=== PATIENT | male | born 1955 | race Caucasian/White ===

== ENCOUNTER 2020-07-05 10:20 | Outpatient (REF) | payer OTHER, SELFPAY ==
--- NOTE | 2020-07-05 | US_ITS ---
EXAMINATION: US EXTRACRANIAL CAROTID DUPLEX, BILATERAL CLINICAL INFORMATION: Follow-up carotid stenosis COMPARISON: June 15, 2019 TECHNIQUE: Real-time ultrasound and Doppler techniques (integrating B-mode 2-D vascular images, Doppler spectral analysis and color-flow Doppler imaging) were utilized to interrogate the extracranial carotid arteries, the vertebral arteries and proximal subclavian arteries bilaterally. The degree of stenosis is determined by criteria similar to NASCET. FINDINGS: Right Side: 1. There is heterogeneous atherosclerotic plaque seen in the bifurcation/proximal ICA region. 2. The common carotid artery PSV proximally is 131 cm/s and distally 128 cm/s. 3. The proximal internal carotid artery velocities are 128 cm/s systolic and 24 cm/s diastolic. 4. The proximal external carotid artery PSV is 141 cm/s. 5. The vertebral artery shows antegrade flow. 6. The subclavian artery waveforms are normal. Left Side: 1. There is heterogeneous atherosclerotic plaque seen in the bifurcation/proximal ICA region. 2. The common carotid artery PSV proximally is 102 cm/s and distally 79 cm/s. 3. The proximal internal carotid artery velocities are 153 cm/s systolic and 33 cm/s diastolic. 4. The proximal external carotid artery PSV is 170 cm/s. 5. The vertebral artery shows antegrade flow. 6. The subclavian artery waveforms are normal. US/US carotid duplex BI IMPRESSION: 1. RIGHT: Moderate, hemodynamically significant stenosis of the proximal right internal carotid artery corresponding to a 50-79% stenosis by velocity criteria. The degree of stenosis is likely less than this since both distal common carotid artery and proximal internal carotid artery velocity is the same, however by velocity criteria this falls in the moderate range. 2. LEFT: Moderate, hemodynamically significant stenosis of the proximal left internal carotid artery corresponding to a 50-79% stenosis by velocity criteria. 3. There is no significant change in the category severity of disease when compared to the previous study dated as described in impression 1.
== END 2020-07-05 10:21 | disposition home or self-care (01) ==
LOC: HO.US 10:20
PROVIDERS: Visit Provider Surgery Vascular Surgery
DX: I65.23 Occlusion and stenosis of bilateral carotid arteries (principal)
CPT/HCPCS: 93880

== ENCOUNTER → 2020-07-11 09:35 | Outpatient (BNVA) | payer OTHER, SELFPAY | PROVIDERS: PCP Internal Medicine Sports Medicine; Visit Provider Surgery Vascular Surgery | DX: Z76.89 Persons encountering health services in other specified circumstances (principal) ==

== ENCOUNTER → 2021-05-08 11:52 | Outpatient (BNVA) | payer OTHER, SELFPAY | PROVIDERS: PCP Internal Medicine; Visit Provider Urology ==

== ENCOUNTER 2021-07-30 13:38 | Outpatient (REF) | payer OTHER, SELFPAY ==
--- NOTE | ~2021-07-30 | US_ITS ---
EXAMINATION: US EXTRACRANIAL CAROTID DUPLEX, BILATERAL CLINICAL INFORMATION: Carotid artery stenosis follow-up. Hyperlipidemia. COMPARISON: 07/05/2020 TECHNIQUE: Real-time ultrasound and Doppler techniques (integrating B-mode 2-D vascular images, Doppler spectral analysis and color-flow Doppler imaging) were utilized to interrogate the extracranial carotid arteries, the vertebral arteries and proximal subclavian arteries bilaterally. The degree of stenosis is determined by criteria similar to NASCET. FINDINGS: Right Side: 1. There is calcified atherosclerotic plaque seen in the bifurcation/proximal ICA region. 2. The common carotid artery PSV proximally is 116 cm/s and distally 116 cm/s. 3. The proximal internal carotid artery velocities are 151 cm/s systolic and 32 cm/s diastolic. 4. The proximal external carotid artery PSV is 189 cm/s. 5. The vertebral artery shows antegrade flow. 6. The subclavian artery waveforms are normal. Left Side: 1. There is calcified atherosclerotic plaque seen in the bifurcation/proximal ICA region. 2. The common carotid artery PSV proximally is 115 cm/s and distally 115 cm/s. 3. The proximal internal carotid artery velocities are 127 cm/s systolic and 10 cm/s diastolic. 4. The proximal external carotid artery PSV is 246 cm/s. 5. The vertebral artery shows antegrade flow. 6. The subclavian artery waveforms are normal. US/US carotid duplex BI IMPRESSION: 1. RIGHT: Moderate, hemodynamically significant stenosis of the proximal right internal carotid artery corresponding to a 50-79% stenosis by velocity criteria. 2. LEFT: Moderate, hemodynamically significant stenosis of the proximal left internal carotid artery corresponding to a 50-79% stenosis by velocity criteria. 3. There is no change in the category severity of disease when compared to the previous study dated 07/05/2020.
== END 2021-07-30 13:39 | disposition home or self-care (01) ==
LOC: HO.US 13:38
PROVIDERS: PCP Ophthalmology; Visit Provider Surgery Vascular Surgery
DX: I65.23 Occlusion and stenosis of bilateral carotid arteries (principal); E78.5 Hyperlipidemia, unspecified
CPT/HCPCS: 93880

== ENCOUNTER → 2021-08-09 10:32 | Outpatient (BNVA) | payer OTHER, SELFPAY | PROVIDERS: PCP Ophthalmology; Visit Provider Surgery Vascular Surgery ==

== ENCOUNTER → 2022-07-31 13:24 | Outpatient (BNVA) | payer OTHER, SELFPAY | PROVIDERS: PCP Ophthalmology; Visit Provider Urology | DX: Z13.89 Encounter for screening for other disorder (principal) ==

== ENCOUNTER 2022-08-05 09:35 | Outpatient (REF) | payer OTHER, SELFPAY ==
--- NOTE | ~2022-08-05 | US_ITS ---
EXAMINATION: US EXTRACRANIAL CAROTID DUPLEX, BILATERAL CLINICAL INFORMATION: History of right carotid endarterectomy COMPARISON: Carotid duplex on 07/30/2021 TECHNIQUE: Real-time ultrasound and Doppler techniques (integrating B-mode 2-D vascular images, Doppler spectral analysis and color-flow Doppler imaging) were utilized to interrogate the extracranial carotid arteries, the vertebral arteries and proximal subclavian arteries bilaterally. The degree of stenosis is determined by criteria similar to NASCET. FINDINGS: Right Side: 1. There is moderate atherosclerotic plaque seen in the bifurcation/proximal ICA region. 2. The common carotid artery PSV proximally is 201 cm/s and distally 151 cm/s. 3. The proximal internal carotid artery velocities are 187 cm/s systolic and 21 cm/s diastolic. 4. The proximal external carotid artery PSV is 298 cm/s. 5. The vertebral artery shows antegrade flow. 6. The subclavian artery waveforms are normal. Left Side: 1. There is moderate atherosclerotic plaque seen in the bifurcation/proximal ICA region. 2. The common carotid artery PSV proximally is 113 cm/s and distally 118 cm/s. 3. The proximal internal carotid artery velocities are 362 cm/s systolic and 30 cm/s diastolic. 4. The proximal external carotid artery PSV is 442 cm/s. 5. The vertebral artery shows antegrade flow. 6. The subclavian artery waveforms are normal. US/US carotid duplex BI IMPRESSION: 1. RIGHT: Moderate, hemodynamically significant stenosis of the proximal right internal carotid artery corresponding to a 50-79% stenosis by velocity criteria. 2. LEFT: Moderate, hemodynamically significant stenosis of the proximal left internal carotid artery corresponding to a 50-79% stenosis by velocity criteria. 3. Significantly elevated velocities in the bilateral external carotid artery suggesting stenosis. 4. There is no change in the category severity of disease when compared to the previous study dated 07/30/2021.
== END 2022-08-05 09:36 | disposition home or self-care (01) ==
LOC: HO.US 09:35
PROVIDERS: PCP Ophthalmology; Visit Provider Surgery Vascular Surgery
DX: I65.23 Occlusion and stenosis of bilateral carotid arteries (principal)
CPT/HCPCS: 93880

== ENCOUNTER 2022-08-20 10:33 | Outpatient (REF) | payer OTHER, SELFPAY ==
[2022-08-20 12:42] LABS: Blood Urea Nitrogen 13 mg/dL (9-16)
[2022-08-20 13:26] LABS: Estimated Glomerular Filt Rate > 60
== END 2022-08-20 10:34 | disposition home or self-care (01) ==
LOC: HO.LAB 10:33
PROVIDERS: Urology; PCP Ophthalmology; Visit Provider Surgery Vascular Surgery
DX: I65.23 Occlusion and stenosis of bilateral carotid arteries (principal); E29.1 Testicular hypofunction; N40.1 Benign prostatic hyperplasia with lower urinary tract symptoms; N13.8 Other obstructive and reflux uropathy
CPT/HCPCS: 36415; 82565; 84520; 85027

== ENCOUNTER → 2022-08-29 09:02 | Outpatient (BNVA) | payer OTHER, SELFPAY | PROVIDERS: PCP Ophthalmology; Visit Provider Surgery Vascular Surgery | DX: Z13.89 Encounter for screening for other disorder (principal) ==

== ENCOUNTER 2022-09-16 05:59 | Inpatient (IN) | payer OTHER, SELFPAY ==
[2022-09-11 13:18] VITALS: BP 159/72; PULSE 83; RESP 20; O2SAT 98; BMI 23.8
[2022-09-11 15:21] LABS: PLT CLUMP 1; Red Blood Count 4.37 X10*6/uL (4.60-5.80)
[2022-09-11 15:22] LABS: Hematocrit 39.5 % (42.0-52.0); Hemoglobin 13.7 g/dl (14.0-18.0); Mean Corpuscular HGB Conc 34.7 g/dl (31.0-36.0); Mean Corpuscular Hemoglobin 31.4 pg (27.0-33.0); Mean Corpuscular Volume 90.4 fL (80.0-98.0); Red Cell Distribution Width 14.2 % (11.0-16.0)
[2022-09-11 15:27] LABS: Platelet Count 101 X10*3/uL (160-400); White Blood Count 6.9 X10*3/uL (4.8-10.8)
[2022-09-11 15:28] LABS: INTERNATIONAL NORM RATIO 1.1 (0.9-1.1); Prothrombin Time 12.1 SEC (10.0-13.1)
[2022-09-11 15:30] LABS: Partial Thromboplastin Time 35.7 SEC (26.0-36.4)
[2022-09-11 15:43] LABS: Anion Gap 11 (12-20); Blood Urea Nitrogen 15 mg/dL (9-16); Calcium 9.7 mg/dL (8.4-10.2); Carbon Dioxide 29 mmol/L (22-29); Chloride 107 mmol/L (96-108); Estimated Glomerular Filt Rate > 60; Glucose Random 95 mg/dL (60-115); Potassium 4.4 mmol/L (3.3-5.1); Sodium 143 mmol/L (135-145)
[2022-09-16] VITALS (17 sets, daily range): BP systolic 110–153; BP diastolic 35–57; PULSE 56–88; RESP 11–18; TEMP 36.4–37.3; O2SAT 93–99
[2022-09-16 06:43] LABS: Hematocrit 37.5 % (42.0-52.0); INTERNATIONAL NORM RATIO 1.2 (0.9-1.1); Mean Corpuscular HGB Conc 34.7 g/dl (31.0-36.0); Mean Corpuscular Hemoglobin 31.2 pg (27.0-33.0); Mean Corpuscular Volume 89.9 fL (80.0-98.0); Prothrombin Time 13.6 SEC (10.0-13.1); Red Blood Count 4.17 X10*6/uL (4.60-5.80); Red Cell Distribution Width 14.2 % (11.0-16.0); White Blood Count 5.9 X10*3/uL (4.8-10.8)
[2022-09-16 06:46] LABS: Partial Thromboplastin Time 34.2 SEC (26.0-36.4); Platelet Count 79 X10*3/uL (160-400)
[2022-09-16 06:53] LABS: Anion Gap 13 (12-20); Blood Urea Nitrogen 14 mg/dL (9-16); Calcium 9.3 mg/dL (8.4-10.2); Carbon Dioxide 23 mmol/L (22-29); Chloride 110 mmol/L (96-108); Creatinine Clr Calc Pharmacy 85.5; Estimated Glomerular Filt Rate > 60; Glucose Random 104 mg/dL (60-115); Potassium 4.3 mmol/L (3.3-5.1); Sodium 142 mmol/L (135-145)
[2022-09-16 06:54] LABS: COVID-19 Test Negative (Negative); IDNOW Serial# 6674DD1D
--- NOTE | 2022-09-16 07:05 | PHA.MEDREC ---
Pharmacy Consult ? Medication Reconciliation Pharmacy has completed the medication reconciliation. Med rec checked from overnight
[2022-09-16] MEDS: Lactated Ringers 1,000 ML 50 ML IVCONT (07:22)
--- NOTE | 2022-09-16 07:36 | HO.ANESPROP2 ---
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 Cardiology started the patient on metoprolol for better blood pressure control . Chronic thrombocytopenia discussed with the surgeon. PMF Active Problems Active Problems: All Active Problems (Updated 09/11/22 @ 13:15 by Flower Raphael RN) Carotid stenosis, bilateral (Acute) Hypogonadism in male (Acute) Erectile dysfunction due to arterial insufficiency (Acute) Testicular cancer (Acute) Past Medical History Medical History (Updated 09/11/22 @ 13:15 by Flower Raphael RN) Cataract HTN (hypertension) Hyperlipidemia Lymphoma Testicular cancer Thrombocytopenia Functional capacity: independent ambulation Family History Family history of problems with anesthesia: No Surgical History Surgical History (Updated 09/11/22 @ 13:30 by Flower Raphael RN) History of carotid endarterectomy (~09/16/17) Hx of bilateral orchiectomies Hx of cataract extraction Hx of hand surgery History of Problems with Anesthesia: No Social History Social History (Updated 08/29/22 @ 09:11 by GEORGE Boudreaux) Household Members: Family Are you a primary pharmacy customer care specialist to a significant other at home: No Do you presently have visiting nurse or other home services: No Patient Tobacco Use Status: Current everyday Tobacco user Tobacco use type: Cigarette Cigarette Packs Per Day: 1 Cigarettes Per Day: 20 Years Smoked: 46 Patient Interested in Nicotine Replacement: No Use of substances other than those prescribed or required for medical reasons: No Substance Use Frequency: Daily Have you been hit, kicked, punched, or otherwise hurt by someone within the past year? If so, by whom?: No Do you feel safe in your current relationship?: Yes Are you DNR?: No Advance Directives: No ( is primary contact-no HCP on file [facility] [place]) Advance Directives Information Provided: Yes (brochure given) Advance Directives on File: No Recently lost weight without trying: Unsure Eating poorly because of decreased appetite: No Nutrition Risks: No Nutritional Risk Poor oral hygiene: No (full upper & lower denture and 2 implant posts-lower) Meds Allergies Allergy/AdvReac Type Severity Reaction Status Date / Time bee pollen [bee stings] Allergy Intermediate Swelling Verified 09/10/22 10:03 Active Medications: Current Medications Lactated Ringer's (Lr) 1,000 mls @ 50 mls/hr IVCONT .Q20H [facility] Last Admin: 09/16/22 07:22 Dose: 50 mls/hr Home Medications Medication Instructions Recorded Confirmed Last Taken Type amlodipine 10 mg tablet 10 mg PO DAILY 01/22/22 09/11/22 09/16/22 History aspirin 81 mg tablet,delayed 81 mg PO DAILY 08/20/22 09/11/22 Unknown History release folic acid 1 mg tablet 1 mg PO DAILY 08/20/22 09/11/22 Unknown History atorvastatin 40 mg tablet 40 mg PO BEDTIME 09/11/22 09/11/22 Unknown History metoprolol tartrate 25 mg tablet 25 mg PO BID 09/11/22 09/11/22 09/16/22 History Exam Exam Date and Time: September 16, 2022 0736 Height,Weight and Vital Signs: Height 5 ft 11 in Weight 77.564 kg Last Vital Signs Temp 99.2 F 09/16/22 06:32 Pulse 88 09/16/22 06:32 Resp 18 09/16/22 06:32 BP 153/57 H 09/16/22 06:32 Pulse Ox 97 09/16/22 06:32 O2 Del Method 09/16/22 06:32 Pertinent Lab Results Pertinent Lab Results: Laboratory Tests 09/11/22 09/11/22 09/11/22 14:30 14:39 14:39 WBC 6.9 RBC 4.37 L Hgb 13.7 L Hct 39.5 L MCV 90.4 MCH 31.4 MCHC 34.7 RDW 14.2 Plt Count 101 L MPV 10.0 Absolute Nucleated RBC 0.000 Nucleated RBC % (auto) 0.0 PT 12.1 INR 1.1 APTT 35.7 Sodium Potassium Chloride Carbon Dioxide Anion Gap BUN Creatinine Estim Creat Clear Calc Estimated GFR Random Glucose Calcium COVID-19 ([facility]) COVID-19 Clin Com Blood Type A Positive Antibody Screen NEGATIVE 09/11/22 09/16/22 09/16/22 14:39 06:20 06:29 WBC 5.9 RBC 4.17 L Hgb 13.0 L Hct 37.5 L MCV 89.9 MCH 31.2 MCHC 34.7 RDW 14.2 Plt Count 79 L MPV 11.0 Absolute Nucleated RBC 0.000 Nucleated RBC % (auto) 0.0 PT INR APTT Sodium 143 Potassium 4.4 Chloride 107 Carbon Dioxide 29 Anion Gap 11 L BUN 15 Creatinine 0.99 Estim Creat Clear Calc 76.0 Estimated GFR > 60 Random Glucose 95 Calcium 9.7 COVID-19 ([facility]) Negative COVID-19 Clin Com See Note Blood Type Antibody Screen 09/16/22 09/16/22 06:29 06:29 WBC RBC Hgb Hct MCV MCH MCHC RDW Plt Count MPV Absolute Nucleated RBC Nucleated RBC % (auto) PT 13.6 H INR 1.2 H APTT 34.2 Sodium 142 Potassium 4.3 Chloride 110 H Carbon Dioxide 23 Anion Gap 13 BUN 14 Creatinine 0.88 Estim Creat Clear Calc 85.5 Estimated GFR > 60 Random Glucose 104 Calcium 9.3 COVID-19 ([facility]) COVID-19 Clin Com Blood Type Antibody Screen Narrative Narrative: EKG 09/10/2022 by patient's prototype model maker NSR Nonspecific ST abnormality Airway Mallampati Class: III TM Dist: >3cm Neck ROM: Full Loose/Missing/Broken Teeth: Yes Heart: S1,S2 Lungs: diminished breath sounds Assessment and Plan Assessment Anesthesia Assessment: Anesthesia Plan Discussed and Chart Reviewed Final Anesthetic Review Family History of Problems with Anesthesia: No History of Problems with Anesthesia: No NPO: Yes ASA Class: III Final Preanesthetic Review: Meds/Allgs Chart Reviewed, Consent Obtained/Reviewed and Anes Risks/Benef Reviewed Patient Risk: High Procedure Risk: Intermediate Anesthetic Plan Anesthetic Plan: GA and Other (Arterial Line ) Disposition: Inp. Admit - ICU
--- NOTE | 2022-09-16 11:04 | P.OP_ITS ---
Operative Note Operative Note Date of Service: 09/16/22 Narrative: Operative note by [facility] Preoperative diagnosis:1. Left Carotid stenosis Postoperative diagnosis: Same Procedure: left Carotid endarterectomy with patch angioplasty Surgeon:Ray Lacey M.D. Transmitter Supervisor: Dr. Altman Anesthesia: General Specimens: 1 Drains: 1 Estimated blood loss: 250 mL Indications: 66-year-old gentleman who had a prior right carotid endarterectomy presented with high-grade left carotid stenosis which was discovered on surveillance follow-up. this was confirmed on CT angiogram. He now presents for left carotid endarterectomy. The patient has signed the info rmed consent after reviewing risks, complications, benefits, and alternatives previously discussed with the patient. The patient was given the opportunity to ask any additional questions or voice any concerns. All questions were answered to the patient's satisfaction. Procedure in detail: Patient was taken to the operating room and placed in a supine position and prepped and draped in sterile manner with ChloraPrep. Longitudinal incision was made along the anterior border of the left sternocleidomastoid carried down through the subcutaneous fat and fascia. Hemostasis was obtained with electrocautery. The platysma muscle was then divided. The carotid sheath was identified in open. The vagus nerve, Ancef cervicalis, and hypoglossal nerves were identified and avoided. The common in ternal and external carotids were then freed from the surrounding tissue. At this point, Five thousand units of heparin was administered and allowed to circulate for 5 minutes time to take effect. The internal, common, external carotids were clamped in that order. Once this was accomplished, we proceeded with the procedure. The carotid bulb was opened with an 11 blade and extended with Morris scissors through the very tight lesion into normal internal carotid artery. This was then extended down into the common carotid artery. We then placed a Hampton shunt. Then the plaque was sharply excised proximally and an eversion endarterectomy was performed successfully at the external. The plaque tapered nicely on to the internal and no tacking sutures were necessary. Heparinized saline was injected and no evidence of flapping or other debris was noted. The remaining carotid was examined, which showed no debris or flaps present. At this point a XenoSure patch was brought on to the field. This was anastomosed to the artery using a 6 0 Prolene in a running fashion. Once approximately 4/5 of the patch was sewn in the shunt was then removed. Prior to the last stitch the internal carotid was back bled through this. Heparinized saline was instilled into the carotid. The last stitch was tied. Hemostasis was excellent. The internal carotid was gently occluded while while of the external and internal were open in that order. Finally the internal was then opened and flow was restored to the entire system. Hemostasis was achieved with interrupted 7-0 Prolene sutures. The wound was irrigated thoroughly. We then placed a 7 flat Torrey-Hemphill drain. Deep layer was reapproximated using a 2-0 poly Sorb and finally the superficial layer with a 3-0 Polysorb. The skin was c losed in a subcuticular manner. The patient awoke and neurologic status was checked and appeared to be intact. Sponge, needle and instrument counts were correct. The patient tolerated the procedure well. Returned to recovery with stable vitals. This note is constructed using voice recognition software. While every effort has been made to ensure accuracy, radiation oncology therapist errors may have been included. Thank you for allowing me to participate in the care of your patient. Yours sincerely, Ray Lacey MD, FACS, R.P.V.I.
[2022-09-16] MEDS: 0.9 % Sodium Chloride 1,000 ML 80 ML IVCONT (12:28)
--- NOTE | 2022-09-16 14:14 | P.HPCC_ITS ---
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 Review of Systems Constitutional: Constitutional: Denies daytime sleepiness, Denies excessive sweating, Denies fatigue, Denies fever(s), Denies lethargy, Denies malaise, Denies night sweats, Denies snoring and Denies weight loss Eyes: Eyes: Denies blurry vision and Denies itchy eyes ENT: Denies nasal congestion, Denies post nasal drip, Denies sinus pain, Denies sinus pressure and Denies other ( Thrush) Cardiovascular: Cardiovascular: Denies chest pain, Denies pedal edema, Denies dyspnea, Denies orthopnea and Denies paroxysmal nocturnal dyspnea Respiratory: Respiratory: Denies cough, Denies hemoptysis, Denies excessive phlegm production, Denies dyspnea, Denies snoring and Denies wheezing Gastrointestinal: Gastrointestinal: Denies abdominal pain and Denies heartburn Musculoskeletal: Musculoskeletal: Denies myalgias, Denies arthralgias and Denies joint swelling Integumentary/Breasts: Skin/Breast: Denies rash Neurologic: Denies seizure-like activity Endocrine: Endocrine: Denies excessive sweating, Denies fatigue and Denies heat intolerance Hematologic/Lymphatic: Hematologic/Lymphatic: Denies easy bruising Allergic/Immunologic: Allergic/Immunologic: Denies itchy eyes, Denies seasonal rhinorrhea and Denies wheezing PMFSH Past Medical History Medical History (Updated 09/16/22 @ 14:25 by Aden Grajeda MD) Cataract HTN (hypertension) Hyperlipidemia Lymphoma Testicular cancer Thrombocytopenia Functional capacity: independent ambulation Surgical History Surgical History (Updated 09/11/22 @ 13:30 by Flower Raphael RN) History of carotid endarterectomy (~09/16/17) Hx of bilateral orchiectomies Hx of cataract extraction Hx of hand surgery Social History Social History (Updated 08/29/22 @ 09:11 by GEORGE Boudreaux) Household Members: Family Are you a primary wound care center consultant to a significant other at home: No Do you presently have visiting nurse or other home services: No Patient Tobacco Use Status: Current everyday Tobacco user Tobacco use type: Cigarette Cigarette Packs Per Day: 1 Cigarettes Per Day: 20 Years Smoked: 46 Patient Interested in Nicotine Replacement: No Use of substances other than those prescribed or required for medical reasons: No Substance Use Frequency: Daily Have you been hit, kicked, punched, or otherwise hurt by someone within the past year? If so, by whom?: No Do you feel safe in your current relationship?: Yes Are you DNR?: No Advance Directives: No ( is primary contact-no HCP on file [facility] [place]) Advance Directives Information Provided: Yes (brochure given) Advance Directives on File: No Recently lost weight without trying: Unsure Eating poorly because of decreased appetite: No Nutrition Risks: No Nutritional Risk Poor oral hygiene: No (full upper & lower denture and 2 implant posts-lower) Meds Allergies Allergy/AdvReac Type Severity Reaction Status Date / Time bee pollen [bee stings] Allergy Intermediate Swelling Verified 09/10/22 10:03 Active Medications: Current Medications Acetaminophen (Acetaminophen 325 Mg Tablet) 650 mg PO Q6H PRN PRN Reason: Pain, Mild (Pain Scale 1-3) Amlodipine Besylate (Amlodipine Besylate 10 Mg Tablet) 10 mg PO DAILY [facility]; Protocol Atorvastatin Calcium (Atorvastatin Calcium 40 Mg Tablet) 40 mg PO BEDTIME [facility] Fentanyl (Fentanyl Citrate/Pf 100 Mcg/2 Ml Vial) 25 mcg IVPUSH Q5M PRN; Protocol PRN Reason: Pain, Moderate (Pain Scale 4-6 Folic Acid (Folic Acid 1 Mg Tablet) 1 mg PO DAILY [facility] Hydromorphone HCl (Hydromorphone Hcl 0.5 Mg/0.5 Ml Syringe) 0.25 mg IVPUSH Q5M PRN; Protocol PRN Reason: Pain, Severe (Pain Scale 7-10) Sodium Chloride (Ns) 1,000 mls @ 80 mls/hr IVCONT .[id number] [facility] Last Admin: 09/16/22 12:28 Dose: 80 mls/hr Cefazolin Sodium/Dextrose (Ancef) 2 gm in 50 mls @ 100 mls/hr IV POSTOP ONE Stop: 09/16/22 14:29 Metoprolol Tartrate (Metoprolol Tartrate 25 Mg Tablet) 25 mg PO BID [facility]; Protocol Morphine Sulfate (Morphine Sulfate 2 Mg/Ml Cartridge) 2 mg IVPUSH Q4H PRN; Protocol PRN Reason: Pain, Severe (Pain Scale 7-10) Oxycodone HCl (Oxycodone Hcl Immed Release 5 Mg Tablet) 5 mg PO Q4H PRN PRN Reason: Pain, Moderate (Pain Scale 4-6 Sodium Chloride (0.9 % Sodium Chloride Flush 3 Ml Syringe) 3 ml IVFLUSH QSHIFT [facility] Last Admin: 09/16/22 12:31 Dose: Not Given Home Medications Medication Instructions Recorded Confirmed Last Taken Type amlodipine 10 mg tablet 10 mg PO DAILY 01/22/22 09/11/22 09/16/22 History aspirin 81 mg tablet,delayed 81 mg PO DAILY 08/20/22 09/11/22 Unknown History release folic acid 1 mg tablet 1 mg PO DAILY 08/20/22 09/11/22 Unknown History atorvastatin 40 mg tablet 40 mg PO BEDTIME 09/11/22 09/11/22 Unknown History metoprolol tartrate 25 mg tablet 25 mg PO BID 09/11/22 09/11/22 09/16/22 History Physical Exam Vital Signs: Vital Signs: Last Vital Signs Temp 98.2 F 09/16/22 11:07 Pulse 58 09/16/22 14:00 Resp 14 09/16/22 14:00 BP 124/44 L 09/16/22 14:00 Pulse Ox 98 09/16/22 14:00 O2 Del Method 09/16/22 14:00 O2 Flow Rate 3 09/16/22 11:37 BMI result Body Mass Index 23.8 Const: General: no acute distress and alert Nutritional Appearance: not obese Orientation/consciousness: Other orientation findings ( oriented) HEENT: Head: Yes atraumatic Eyes: General: appearance normal, both eyes and all related structures Sclerae: sclerae normal EOM: EOMs intact bilaterally Neck: Neck: Yes supple and Yes other ( left surgical site with dressing and no hematoma) Lymphatic: no lymphadenopathy noted Resp: Effort & Inspection: normal respiratory effort and no use of accessory muscles Auscultation: clear to auscultation bilaterally Cardio: Rate: regular rate Rhythm: regular rhythm Heart sounds: no gallops, no murmurs and no rubs GI: Palpation (GI): Soft to palpation and Other GI palpation findings present ( nontender) Skin: General skin exam: other ( warm) Rashes: no rashes Extrem: General: No clubbing, No cyanosis and No edema Results Labs 09/16/22 06:29 09/16/22 06:29 Labs: Laboratory Results - last 24 hr 09/16/22 09/16/22 09/16/22 06:20 06:29 06:29 MCV 89.9 MCH 31.2 MCHC 34.7 RDW 14.2 Plt Count 79 L MPV 11.0 Absolute Nucleated RBC 0.000 Nucleated RBC % (auto) 0.0 PT 13.6 H INR 1.2 H APTT 34.2 Anion Gap Estim Creat Clear Calc Estimated GFR Random Glucose Calcium COVID-19 ([facility]) Negative COVID-19 Clin Com See Note 09/16/22 06:29 MCV MCH MCHC RDW Plt Count MPV Absolute Nucleated RBC Nucleated RBC % (auto) PT INR APTT Anion Gap 13 Estim Creat Clear Calc 85.5 Estimated GFR > 60 Random Glucose 104 Calcium 9.3 COVID-19 ([facility]) COVID-19 Clin Com Assessment and Plan (1) Carotid stenosis, bilateral: Status: Acute (2) HTN (hypertension): Status: Acute Plan Assessment: 66-year-old gentleman postoperative day 0 after an elective left carotid endarterectomy being monitored in the intensive care unit. Plan: Neuro: No acute issues. Cardiac: Status post elective left carotid endarterectomy on 09/16/2022. Vascular surgery service care appreciated. Maintain systolic blood pressure under 160. Pulmonary: No acute issues. Renal: No acute issues. Endo: No acute issues. GI: No acute issues. ID: No acute issues Heme/Onc: No acute issues. Psych: No acute issues. Miscellaneous: No acute issues. Prophylaxis: Per vascular surgery Diet: regular Time Spent With Patient Time: Total time managing care of this patient today ____ minutes.
[2022-09-16] MEDS: ceFAZolin Sodium/Dextrose,Iso 2 GM/50 ML PIGGYBACK IV (14:41)
[2022-09-16] MEDS: Atorvastatin Calcium 40 MG TABLET PO (20:41)
[2022-09-16] MEDS: Metoprolol Tartrate 25 MG TABLET PO (20:41)
[2022-09-17] VITALS (18 sets, daily range): BP systolic 124–151; BP diastolic 37–67; PULSE 67–102; RESP 10–20; TEMP 36.6–37.9; O2SAT 89–95; BMI 23.6
[2022-09-17] MEDS: 0.9 % Sodium Chloride 1,000 ML 80 ML IVCONT (00:41)
[2022-09-17] MEDS: 0.9 % Sodium Chloride Flush 3 ML SYRINGE IVFLUSH ×3 (00:42→23:55)
[2022-09-17 05:33] LABS: PLT CLUMP 1; SCAN SMEAR FLAG 1
[2022-09-17 05:34] LABS: Basophils Percent Auto 0.1 % (0-2); Eosinophils Percent Auto 0.2 % (0-4); Hematocrit 31.4 % (42.0-52.0); Hemoglobin 11.1 g/dl (14.0-18.0); Imm Gran Abs Auto 0.05 X10*3/uL (0.00-0.03); Imm Gran Pct Auto 0.6 % (0.0-0.4); Lymphocytes Absolute Auto 1.2 X10*3/uL (1.2-4.9); Lymphocytes Percent Auto 14.1 % (20-40); MANUAL DIFF FLAG SCAN; Mean Corpuscular HGB Conc 35.4 g/dl (31.0-36.0); Mean Corpuscular Hemoglobin 31.2 pg (27.0-33.0); Mean Corpuscular Volume 88.2 fL (80.0-98.0); Mean Platelet Volume 11.5 fL (9.4-12.4); Monocytes Absolute Auto 0.6 X10*3/uL (0.1-1.2); Monocytes Percent Auto 6.6 % (2-11); Neutrophils Absolute Auto 6.8 x10*3/uL (2.0-8.3); Neutrophils Percent Auto 78.4 % (45-73); Red Blood Count 3.56 X10*6/uL (4.60-5.80)
[2022-09-17 05:37] LABS: Platelet Count 72 X10*3/uL (160-400); White Blood Count 8.6 X10*3/uL (4.8-10.8)
[2022-09-17 05:40] LABS: SLIDE REVIEW VERIFIED
[2022-09-17 05:49] LABS: Albumin Level 3.2 g/dL (3.5-5.0); Anion Gap 11 (12-20); Blood Urea Nitrogen 16 mg/dL (9-16); Calcium 8.5 mg/dL (8.4-10.2); Carbon Dioxide 23 mmol/L (22-29); Chloride 111 mmol/L (96-108); Creatinine Clr Calc Pharmacy 91.8; Estimated Glomerular Filt Rate > 60; Glucose Random 96 mg/dL (60-115); Magnesium 1.6 mg/dL (1.6-2.6); Phosphorus 3.3 mg/dL (2.7-4.5); Potassium 4.2 mmol/L (3.3-5.1); Sodium 141 mmol/L (135-145)
[2022-09-17] MEDS: amLODIPine Besylate 10 MG TABLET PO (07:51)
[2022-09-17] MEDS: Metoprolol Tartrate 25 MG TABLET PO ×2 (07:51→20:25)
[2022-09-17] MEDS: Folic Acid 1 MG TABLET PO (07:51)
[2022-09-17] MEDS: Furosemide 20 MG/2 ML VIAL IVPUSH ×2 (09:38→12:48)
--- NOTE | 2022-09-17 09:44 | MHC.CM.PN ---
CM MET WITH PT AT BEDSIDE. LIVES WITH IN A DUPLEX. INDEPENDENT AT BASELINE. NO DME OR SERVICES. +HCP (COPY AT HOME) + COVID VAX X2 PCP DR. HAN DP: HOME, NO SERVICES (PATIENT DOES NOT FEEL HE WILL NEED A VNA) OR DAUGHTER WILL TRANSPORT HOME.
--- NOTE | 2022-09-17 12:29 | PM.CCPN ---
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 No events overnight. Critical Care Time (minutes): 0 Physical Exam Vital Signs: Vital Signs: Last Vital Signs Temp 98.9 F 09/17/22 08:00 Pulse 73 09/17/22 11:00 Resp 20 09/17/22 11:00 BP 125/58 L 09/17/22 11:00 Pulse Ox 92 09/17/22 11:12 O2 Del Method 09/17/22 11:12 O2 Flow Rate 4 09/17/22 11:00 Oxygen Flow Rate 4 09/17/22 11:12 BMI result Body Mass Index 23.6 Const: General: no acute distress, alert and awake Eyes: Sclerae: sclerae normal EOM: EOMs intact bilaterally Neck: Neck: Yes no lymphadenopathy, Yes trachea midline, Yes supple and Yes other ( Left carotid endarterectomy site with surgical dressing and no hematoma.) Resp: Effort & Inspection: normal respiratory effort and no respiratory distress Auscultation: clear to auscultation bilaterally Cardio: Rate: regular rate Rhythm: regular rhythm Heart sounds: no gallops, no murmurs and no rubs GI: Palpation (GI): Soft to palpation and Other GI palpation findings present ( Nontender) Auscultation: normal bowel sounds Extrem: General: Yes no pedal edema, No clubbing and No cyanosis Objective Data Labs 09/17/22 05:09 09/17/22 05:09 Labs: Laboratory Results - last 24 hr 09/17/22 09/17/22 05:09 05:09 WBC 8.6 RBC 3.56 L Hgb 11.1 L Hct 31.4 L MCV 88.2 MCH 31.2 MCHC 35.4 RDW 14.0 Plt Count 72 L MPV 11.5 Immature Gran % (Auto) 0.6 H Neut % (Auto) 78.4 H Lymph % (Auto) 14.[address] [place] % (Auto) 6.6 Eos % (Auto) 0.2 Baso % (Auto) 0.1 Lymph # (Auto) 1.2 [place] # (Auto) 0.6 Eos # (Auto) 0.0 Baso # (Auto) 0.0 Abs Immat Gran (auto) 0.05 H Absolute Neuts (auto) 6.8 Absolute Nucleated RBC 0.000 Nucleated RBC % (auto) 0.0 Smear Tech's Comments VERIFIED Sodium 141 Potassium 4.2 Chloride 111 H Carbon Dioxide 23 Anion Gap 11 L BUN 16 Creatinine 0.82 Estim Creat Clear Calc 91.8 Estimated GFR > 60 Random Glucose 96 Calcium 8.5 D Phosphorus 3.3 Magnesium 1.6 Albumin 3.2 L Progress Note: A&P Assessment and plan (1) Carotid stenosis, bilateral: Status: Acute (2) HTN (hypertension): Status: Acute Plan Assessment: 66-year-old gentleman postoperative day 0 after an elective left carotid endarterectomy being monitored in the intensive care unit. Plan: Neuro: No acute issues. Cardiac: Status post elective left carotid endarterectomy on 09/16/2022. Vascular surgery service care appreciated. Maintain systolic blood pressure under 160. Pulmonary: Acute hypoxia requiring supplemental oxygen, likely secondary to pulmonary edema with IV fluids, improving with diuresis. Continue to titrate off supplemental oxygen as tolerated. Renal: No acute issues. Endo: No acute issues. GI: No acute issues. ID: No acute issues Heme/Onc: No acute issues. Psych: No acute issues. Miscellaneous: No acute issues. Prophylaxis: Per vascular surgery Diet: regular Quality Stroke Does the patient have a stroke diagnosis?: No VTE Prior VTE?: No VTE Risk Level:: Medical - moderate - high VTE Device Contraindication: N/A - Device Ordered VTE Drug Contraindication: Treatment Not Tolerated
--- NOTE | 2022-09-17 13:03 | HO.VASCPN ---
Subjective Subjective Date of Service: 09/17/22 Patient reports: no new complaints and feels better Interval history: Patient postop day 1 status post carotid endarterectomy. No events overnight. Appears to be doing relatively well. Tolerating some p.o. and regular diet. He did have events of desaturation overnight. He is requiring oxygen. Other than that doing extremely well postop day 1. Physical Exam Vital Signs: Vital Signs: Last Vital Signs Temp 98.9 F 09/17/22 08:00 Pulse 81 09/17/22 12:00 Resp 10 L 09/17/22 12:00 BP 144/66 H 09/17/22 12:00 Pulse Ox 89 L 09/17/22 12:00 O2 Del Method 09/17/22 12:00 O2 Flow Rate 4 09/17/22 12:00 Oxygen Flow Rate 4 09/17/22 11:12 BMI result Body Mass Index 23.6 Const: General: cooperative, healthy appearing and comfortable Orientation/consciousness: oriented to person, oriented to place and oriented to time HEENT: Head: Yes normal to inspection Neck: Neck: Yes normal visual inspection Carotids: no bruits Chest: Chest palpation & inspection: normal inspection of the chest Resp: Effort & Inspection: normal respiratory effort and able to speak in complete sentences Auscultation: clear to auscultation bilaterally, no crackles, no rales, no rhonchi and no wheezes Cardio: Rate: regular rate Rhythm: regular rhythm Heart sounds: S1 normal heart sound present and S2 normal heart sound present Bruits: no carotid bruits Peripheral pulses: Peripheral pulses 2+ throughout GI: Inspection: Yes normal to inspection Skin: Other: Neck incision healing well ANIKA drain removed Wounds: no wounds Hair: normal Neuro: General: oriented to person, oriented to place and oriented to time Cranial nerves: Yes CN's II-XII intact bilaterally and Yes Normal hearing present Cognition (Neuro): normal cognition Motor exam (neuro): 5/5 motor strength present throughout Extrem: Other: venous exam: No significant superficial varicosities or spider telangiectasias, minimal edema General: No clubbing, No cyanosis and No edema Psych: Appearance: grossly normal Mental Status: mental status grossly normal Speech and movement: Normal speech and movement present Progress Note: A&P Assessment and plan (1) Carotid stenosis, bilateral: Status: Acute Assessment and Plan: In short patient is doing extremely well status post carotid endarterectomy. CBC is stable with a hemoglobin of 11.1 and a platelet count of 72. The only issue is his desaturation. I do suspect that that is where he usually lives. He was given round of Lasix. Appears to be doing much better with that. Will keep additional day for observation. Regular diet and encouraged ambulation. Would anticipate discharge as early as tomorrow. Time Spent With Patient Time: Total time managing care of this patient today ____ minutes. Procedures Date of Service Date of Service: 09/17/22 Quality Stroke Does the patient have a stroke diagnosis?: No VTE Prior VTE?: No VTE Risk Level:: Medical - moderate - high VTE Device Contraindication: N/A - Device Ordered VTE Drug Contraindication: Treatment Not Tolerated
--- NOTE | 2022-09-17 13:26 | MHC.SHP ---
Pre-Procedural Eval Section A Date of Service: 09/16/22 The patient is an INPATIENT: No Changes since office visit: Yes Patient answered all questions The History & Physical has been completed within 30 days and I have reviewed it.: Yes Section B Chief Complaint: Postop Allergies: Allergies Allergy/AdvReac Type Severity Reaction Status Date / Time bee pollen [bee stings] Allergy Intermediate Swelling Verified 09/10/22 10:03 Plan I have reviewed the history and physical and performed a pertinent physical examination on my patient. No changes have occurred unless specified. Time Spent With Patient Time: Total time managing care of this patient today ____ minutes.
--- NOTE | 2022-09-17 13:27 | HO.POSTANES ---
Post Anesthesia Evaluation Post Anesthesia Evaluation Vital Signs: Vital Signs Temp Pulse Resp BP Pulse Ox O2 Del Method O2 Flow Rate 09/17/22 08:00 98.9 F 75 20 147/50 H 92 Nasal Cannula 3 09/17/22 11:12 92 Nasal Cannula 09/17/22 12:00 81 10 L 144/66 H 89 L Nasal Cannula 4 09/17/22 11:00 73 20 125/58 L 92 Nasal Cannula 4 09/17/22 10:00 69 15 130/65 94 Nasal Cannula 4 09/17/22 09:00 67 17 139/43 L 90 L Nasal Cannula 4 09/17/22 07:00 69 17 132/39 L 92 Nasal Cannula 2 09/17/22 06:00 69 18 124/37 L 93 Nasal Cannula 2 09/17/22 05:00 95 15 140/58 H 90 L Nasal Cannula 2 09/17/22 04:00 97.9 F 88 16 140/48 H 93 Nasal Cannula 2 09/17/22 02:59 86 15 135/44 L 93 Nasal Cannula 2 09/17/22 02:00 82 15 141/58 H 94 Nasal Cannula 2 Anesthesia: General Endotracheal-GETA Mental Status: Awake Pain Control: Satisfactory Nausea/Vomiting: None Hydration: Adequate Anesthesia-Related Issues: No Anes. Related Issues
[2022-09-17] MEDS: guaiFEN/Codeine SF 200/20/10ML 10 ML LIQUID PO (14:47)
[2022-09-17] MEDS: Acetaminophen 325 MG TABLET 650 MG PO (14:47)
--- NOTE | 2022-09-17 18:06 | PC.NURSE ---
Pt's ANIKA drain removed by MD, tolerated well by pt, dressing to site CDI. Pt has a wet loose cough but nonproductive, LS clear but dim. Pt was initially on 2L n/c, desatting in the high 80s, requiring 4L on n/c, desats with exertion, MD aware and plan to keep another night. Pt received 20mg IV Lasix x2, good UO. PRN cough suppressant given. Pt's dykes dc'd, voiding appropriately in the urinal. Pt ambulated in the hallway with portable O2, tolerated fairly. Pt downgraded to MS, awaiting bed placement. Pt otherwise in no acute distress. Safety maintained throughout. Will continue to monitor.
[2022-09-17] MEDS: Atorvastatin Calcium 40 MG TABLET PO (20:25)
[2022-09-17] MEDS: Melatonin 3 MG TABLET 6 MG PO (21:47)
[2022-09-18 00:20] VITALS: BP 135/66; PULSE 95; RESP 18; O2SAT 92
[2022-09-18 03:54] VITALS: BP 131/63; PULSE 66; RESP 16; TEMP 37.3; O2SAT 92
[2022-09-18 08:00] VITALS: BP 159/61; PULSE 94; RESP 23; TEMP 37; O2SAT 91
[2022-09-18] MEDS: 0.9 % Sodium Chloride Flush 3 ML SYRINGE IVFLUSH (08:16)
[2022-09-18 08:26] LABS: MANUAL DIFF FLAG NO
[2022-09-18 08:36] LABS: Albumin Level 3.5 g/dL (3.5-5.0)
[2022-09-18 08:51] LABS: Basophils Percent Auto 0.3 % (0-2); Eosinophils Absolute Auto 0.1 X10*3/uL (0.0-0.4); Eosinophils Percent Auto 1.7 % (0-4); Hematocrit 32.8 % (42.0-52.0); Hemoglobin 11.5 g/dl (14.0-18.0); Imm Gran Abs Auto 0.04 X10*3/uL (0.00-0.03); Imm Gran Pct Auto 0.6 % (0.0-0.4); Lymphocytes Absolute Auto 1.4 X10*3/uL (1.2-4.9); Lymphocytes Percent Auto 20.2 % (20-40); Mean Corpuscular HGB Conc 35.1 g/dl (31.0-36.0); Mean Corpuscular Hemoglobin 31.3 pg (27.0-33.0); Mean Corpuscular Volume 89.4 fL (80.0-98.0); Mean Platelet Volume 11.2 fL (9.4-12.4); Monocytes Absolute Auto 0.6 X10*3/uL (0.1-1.2); Monocytes Percent Auto 8.7 % (2-11); Neutrophils Absolute Auto 4.8 x10*3/uL (2.0-8.3); Neutrophils Percent Auto 68.5 % (45-73); Red Blood Count 3.67 X10*6/uL (4.60-5.80); Red Cell Distribution Width 14.5 % (11.0-16.0); White Blood Count 6.9 X10*3/uL (4.8-10.8)
[2022-09-18 08:53] LABS: Platelet Count 71 X10*3/uL (160-400)
[2022-09-18] MEDS: Metoprolol Tartrate 25 MG TABLET PO (09:01)
[2022-09-18] MEDS: amLODIPine Besylate 10 MG TABLET PO (09:01)
[2022-09-18] MEDS: Folic Acid 1 MG TABLET PO (09:01)
[2022-09-18 10:09] VITALS: O2SAT 90
--- NOTE | 2022-09-18 10:09 | P.DS_ITS ---
DS: Providers Provider Date of Service: 09/18/22 Date of admission: 09/16/22 05:59 Primary care physician: Batool Latif MD Consults: 09/18/22 07:52 Consult to Hospitalist Routine Consulting Provider: Hospitalist Reason For Exam: Medical comanagement DS: Diagnosis Discharge Diagnosis (1) Carotid stenosis, bilateral: Status: Acute DS: Summary Hospital Course Hospital Course: Underwent left carotid endarterectomy on 09/16/2022. Procedure went without incident. Postoperatively he did have some underlying COPD and shortness of breath. He was diuresed with Lasix. Appear to be doing much better postop day 2. He was seen and examined with the hospitalist team. He was subsequently stable for discharge. Condition upon discharge stable. He was neurologically intact. Time Spent with Patient Time attestation: Total time managing care of this patient today ____ minutes. Discharge coordination time: Greater than 30 minutes Quality: Safe Use of Opioids Does Pt have an Active Cancer Diagnosis on the Problem List?: No Quality: Stroke Does the patient have a stroke diagnosis?: No Physical Exam Vital Signs: Vital Signs: Last Vital Signs Temp 98.6 F 09/18/22 08:00 Pulse 94 09/18/22 08:00 Resp 23 H 09/18/22 08:00 BP 159/61 H 09/18/22 08:00 Pulse Ox 91 L 09/18/22 08:00 O2 Del Method 09/18/22 08:00 O2 Flow Rate 3 09/18/22 08:00 Oxygen Flow Rate 4 09/17/22 11:12 BMI result Body Mass Index 23.6 Const: General: cooperative, healthy appearing and no acute distress Orientation/consciousness: oriented to person, oriented to place and oriented to time HEENT: Head: Yes normal to inspection Neck: Carotids: no bruits Chest: Chest palpation & inspection: normal inspection of the chest Resp: Effort & Inspection: normal respiratory effort and able to speak in complete sentences Auscultation: clear to auscultation bilaterally Cardio: Rate: regular rate Heart sounds: S1 normal heart sound present and S2 normal heart sound present GI: Inspection: Yes normal to inspection Skin: Other: Left neck well-healed General skin exam: no rashes or lesions noted Wounds: no wounds Neuro: General: oriented to person, oriented to place, oriented to time and CN's II-XI intact bilaterally Extrem: General: Yes normal to inspection, Yes full ROM and Yes no clubbing, cyanosis or edema Psych: Appearance: grossly normal and well kempt Speech and movement: Normal speech and movement present Affect: normal affect DS: Data Data Completed and Pending Completed studies during hospitalization [Text1]: Pending at discharge 09/16/22 09:25 Surgical [PTH] Routine Labs on day of discharge: Laboratory Results - last 24 hr 09/18/22 09/18/22 08:20 08:20 WBC 6.9 RBC 3.67 L Hgb 11.5 L Hct 32.8 L MCV 89.4 MCH 31.3 MCHC 35.1 RDW 14.5 Plt Count 71 L MPV 11.2 Immature Gran % (Auto) 0.6 H Neut % (Auto) 68.5 Lymph % (Auto) 20.2 [place] % (Auto) 8.7 Eos % (Auto) 1.7 Baso % (Auto) 0.3 Lymph # (Auto) 1.4 [place] # (Auto) 0.6 Eos # (Auto) 0.1 Baso # (Auto) 0.0 Abs Immat Gran (auto) 0.04 H Absolute Neuts (auto) 4.8 Absolute Nucleated RBC 0.000 Nucleated RBC % (auto) 0.0 Albumin 3.5 Discharge Plan Discharge Anticipated Discharge Date/Time: 09/18/22 10:05 Patient Disposition: Home, Self-Care Discharge Diagnosis: Status post carotid endarterectomy Referrals: Batool Latif MD [Primary Care Provider] - 1 Week Discharge Medications: Continued testosterone 20.25 mg/1.25 gram (1.62 %) gel in metered-dose pump 3 pump topical DAILY 30 Days Qty: 150 5RF Rx Instructions: apply 3 pumps total between EACH upper arm and shoulder atorvastatin 40 mg tablet 40 mg PO BEDTIME metoprolol tartrate 25 mg Tablet 25 mg PO BID amlodipine 10 mg tablet 10 mg PO DAILY aspirin 81 mg tablet,delayed release (DR/EC) 81 mg PO DAILY folic acid 1 mg tablet 1 mg PO DAILY Discharge Orders: Discharge Order (Routine); Ordered 09/18/22 Ordered By: Ray Lacey Diet: Advance to usual diet Activity on Discharge: As tolerated Stand Alone Forms: Patient Portal Discharge page Activity Restrictions/Additional Instructions: You may shower tomorrow Take it easy today and you may ambulate around the house. You may climb a flight of stairs as tolerated No driving for [address] Lacey in follow-up in approximately 2 weeks time. You should already have an appointment if not please call my office at [phone] Please s use Tylenol as needed for pain If you notice excessive bleeding from the groin please immediately call my office or return to the emergency room. Care Plan Goals: Surveil carotid stenosis Health Concerns: Carotid stenosis Plan of Treatment: Surveillance follow-up of carotid stenosis Assessment: Status post carotid endarterectomy
--- NOTE | 2022-09-18 10:28 | PC.NURSE ---
O2 sat down to 84% off oxygen and with ambulation. Patient placed on 2L NC - Fio2 up to 94% - Dr Wylie and Dr Lacey aware. Dr Lacey at bedside and removed oxygen - Fio2 down to 88% while sitting. Okay per Dr Lacey to discharge patient on RA with current O2 sat. Patient has no complaints at this time, all other vitals stable, ambulating without complaints.
--- NOTE | 2022-09-18 10:48 | HO.PM.IMPN ---
Subjective Subjective Date of Service: 09/18/22 Interval History: being followed for hypoxia and hypertension, patient offers no complaints of shortness of breath, no cough, no fevers, no chills, is a former smoker, not on home oxygen, does not use home inhalers, ambulates long distances at home with no history of shortness of breath. Review of Systems FACILITY SPECIALIST no headache no dizziness CVS no chest pain, no palpitation GI no nausea, no vomiting, no abdominal pain Review of Systems: Yes all other systems are reviewed and are negative Physical Exam Vital Signs: Vital Signs: Last Vital Signs Temp 98.6 F 09/18/22 08:00 Pulse 94 09/18/22 08:00 Resp 23 H 09/18/22 08:00 BP 159/61 H 09/18/22 08:00 Pulse Ox 90 L 09/18/22 10:09 O2 Del Method 09/18/22 08:00 O2 Flow Rate 3 09/18/22 08:00 Oxygen Flow Rate 0 09/18/22 10:09 BMI result Body Mass Index 23.6 Const: Other: General resting comfortably in no acute distress. Neck left neck dressing in place no drainage, no JVD. CVS regular rate rhythm, Respiratory lungs fine crackles at bases, no respiratory distress, no wheeze. Gastrointestinal abdomen soft, nontender, bowel sounds audible. Extremities no edema. left leg > right Neuro nonfocal Skin no rash Objective Data Active Medications Acetaminophen (Acetaminophen 325 Mg Tablet) 650 mg PO Q6H PRN PRN Reason: Pain, Mild (Pain Scale 1-3) Last Admin: 09/17/22 14:47 Dose: 650 mg Documented By: VAISHALI Amlodipine Besylate (Amlodipine Besylate 10 Mg Tablet) 10 mg PO DAILY [facility]; Protocol Last Admin: 09/18/22 09:01 Dose: 10 mg Documented By: BHARTI Atorvastatin Calcium (Atorvastatin Calcium 40 Mg Tablet) 40 mg PO BEDTIME [facility] Last Admin: 09/17/22 20:25 Dose: 40 mg Documented By: KATHERINE Fentanyl (Fentanyl Citrate/Pf 100 Mcg/2 Ml Vial) 25 mcg IVPUSH Q5M PRN; Protocol PRN Reason: Pain, Moderate (Pain Scale 4-6 Folic Acid (Folic Acid 1 Mg Tablet) 1 mg PO DAILY [facility] Last Admin: 09/18/22 09:01 Dose: 1 mg Documented By: BHARTI Guaifenesin/Codeine Phosphate (Guaifen/Codeine Sf 200/20/10ml 10 Ml Liquid) 10 ml PO Q6H PRN PRN Reason: Cough Last Admin: 09/17/22 14:47 Dose: 10 ml Documented By: VAISHALI Hydromorphone HCl (Hydromorphone Hcl 0.5 Mg/0.5 Ml Syringe) 0.25 mg IVPUSH Q5M PRN; Protocol PRN Reason: Pain, Severe (Pain Scale 7-10) Metoprolol Tartrate (Metoprolol Tartrate 25 Mg Tablet) 25 mg PO BID [facility]; Protocol Last Admin: 09/18/22 09:01 Dose: 25 mg Documented By: BHARTI Morphine Sulfate (Morphine Sulfate 2 Mg/Ml Cartridge) 2 mg IVPUSH Q4H PRN; Protocol PRN Reason: Pain, Severe (Pain Scale 7-10) Oxycodone HCl (Oxycodone Hcl Immed Release 5 Mg Tablet) 5 mg PO Q4H PRN PRN Reason: Pain, Moderate (Pain Scale 4-6 Sodium Chloride (0.9 % Sodium Chloride Flush 3 Ml Syringe) 3 ml IVFLUSH [facility] Last Admin: 09/18/22 08:16 Dose: 3 ml Documented By: RICHARD Labs 09/18/22 08:20 09/17/22 05:09 Labs: Laboratory Results - last 24 hr 09/18/22 09/18/22 08:20 08:20 MCV 89.4 MCH 31.3 MCHC 35.1 RDW 14.5 Plt Count 71 L MPV 11.2 Immature Gran % (Auto) 0.6 H Neut % (Auto) 68.5 Lymph % (Auto) 20.2 [place] % (Auto) 8.7 Eos % (Auto) 1.7 Baso % (Auto) 0.3 Lymph # (Auto) 1.4 [place] # (Auto) 0.6 Eos # (Auto) 0.1 Baso # (Auto) 0.0 Abs Immat Gran (auto) 0.04 H Absolute Neuts (auto) 4.8 Absolute Nucleated RBC 0.000 Nucleated RBC % (auto) 0.0 Albumin 3.5 Assessment and Plan (1) HTN (hypertension): Status: Acute (2) Hypoxia: Status: Acute Plan 66-year-old gentleman with pmhx of bilateral carotid stenosis status post right carotid endarterectomy in 2018, hypertension, hyperlipidemia, 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 hypertension stable blood pressure continue metoprolol and Norvasc acute hypoxia initially felt to be fluid related received IV Lasix almost 2 L negative, at present do not appear to be in heart failure with no JVD, no leg edema, mild persistent hypoxia likely due to undiagnosed COPD with history of heavy smoking, recommend incentive spirometry and close outpatient follow-up with PCP and pulmonology. hyperlipidemia continue statins status post left carotid endarterectomy plan of care as per vascular surgery disposition as per vascular surgery Time Spent With Patient Time: Total time managing care of this patient today ____ minutes. Quality Stroke Does the patient have a stroke diagnosis?: No VTE Prior VTE?: No VTE Risk Level:: Medical - moderate - high VTE Device Contraindication: N/A - Device Ordered VTE Drug Contraindication: Treatment Not Tolerated
--- NOTE | 2022-09-18 16:19 | MHC.CM.PN ---
DP: PT MEDICALLY CLEARED FOR DC HOME, NO SERVICES. WILL TRANSPORT
== END 2022-09-18 11:00 | disposition home or self-care (01) | DRG 39 ==
LOC: HO.SSSA 05:59 → HO.ICU 11:43
PROVIDERS: Anesthesiology; Internal Medicine Pulmonary Disease; Admitting Provider Surgery Vascular Surgery; PCP Ophthalmology; Visit Provider Surgery Vascular Surgery
PROC: 03CN0ZZ Extirpation of Matter from Left External Carotid Artery, Open Approach (ICD-10-PCS; CPT 35301; principal; 2022-09-16 07:30)
DX: I65.22 Occlusion and stenosis of left carotid artery (principal); I10 Essential (primary) hypertension; R09.02 Hypoxemia; E78.5 Hyperlipidemia, unspecified; F17.210 Nicotine dependence, cigarettes, uncomplicated; J44.9 Chronic obstructive pulmonary disease, unspecified; Z20.822 Contact with and (suspected) exposure to COVID-19; Z71.6 Tobacco abuse counseling; Z79.82 Long term (current) use of aspirin; Z79.899 Other long term (current) drug therapy
CPT/HCPCS: 36415; 80048; 82040; 83735; 84100; 85025; 85027; 85610; 85730; 86850; 86900; 86901; 87635; 88304; 88305; 88311; C1758; C1768; J0690; J1100; J1170; J1643; J1940; J2250; J2370; J2405; J2795; J3010

== ENCOUNTER → 2022-09-26 08:58 | Outpatient (BNVA) | payer OTHER, SELFPAY | PROVIDERS: PCP Student in an Organized Health Care Education/Training Program; Visit Provider Surgery Vascular Surgery | DX: Z13.89 Encounter for screening for other disorder (principal) ==

== ENCOUNTER → 2022-12-09 14:29 | Outpatient (BNVA) | payer OTHER, SELFPAY | PROVIDERS: PCP Student in an Organized Health Care Education/Training Program; Visit Provider Internal Medicine ==

== ENCOUNTER 2022-12-23 09:42 | Outpatient (REF) | payer OTHER, SELFPAY ==
--- NOTE | ~2022-12-23 | US_ITS ---
EXAMINATION: US EXTRACRANIAL CAROTID DUPLEX, BILATERAL CLINICAL INFORMATION: Occlusion and stenosis of bilateral carotid arteries. Status post endarterectomy on the right 5 years ago and on the left 4 months ago. COMPARISON: None available. TECHNIQUE: Real-time ultrasound and Doppler techniques (integrating B-mode 2-D vascular images, Doppler spectral analysis and color-flow Doppler imaging) were utilized to interrogate the extracranial carotid arteries, the vertebral arteries and proximal subclavian arteries bilaterally. The degree of stenosis is determined by criteria similar to NASCET. FINDINGS: Right Side: 1. There is mild atherosclerotic plaque seen in the bifurcation/proximal ICA region. 2. The common carotid artery PSV proximally is 85 cm/s and distally 95 cm/s. 3. The proximal internal carotid artery velocities are 90 cm/s systolic and 20 cm/s diastolic. 4. The proximal external carotid artery PSV is 164 cm/s. 5. The vertebral artery shows antegrade flow. 6. The subclavian artery waveforms are normal. Left Side: 1. There is mild atherosclerotic plaque seen in the bifurcation/proximal ICA region. 2. The common carotid artery PSV proximally is 82 cm/s and distally 82 cm/s. 3. The proximal internal carotid artery velocities are 94 cm/s systolic and 15 cm/s diastolic. 4. The proximal external carotid artery PSV is 169 cm/s. 5. The vertebral artery shows antegrade flow. 6. The subclavian artery waveforms are normal. US/US carotid duplex BI IMPRESSION: 1. RIGHT: Minimal, non-hemodynamically significant stenosis of the proximal right internal carotid artery corresponding to a 0-49% stenosis by velocity criteria. 2. LEFT: Minimal, non-hemodynamically significant stenosis of the proximal left internal carotid artery corresponding to a 0-49% stenosis by velocity criteria. 3. When compared to the July study, velocities have significantly decreased as both ICA peak systolic velocities were over 125 and now they are under 125.
== END 2022-12-23 09:43 | disposition home or self-care (01) ==
LOC: HO.US 09:42
PROVIDERS: Visit Provider Surgery Vascular Surgery
DX: I65.23 Occlusion and stenosis of bilateral carotid arteries (principal)
CPT/HCPCS: 93880

== ENCOUNTER → 2022-12-31 09:55 | Outpatient (BNVA) | payer OTHER, SELFPAY | PROVIDERS: PCP Student in an Organized Health Care Education/Training Program; Visit Provider Surgery Vascular Surgery ==

== ENCOUNTER 2023-01-10 | Outpatient (REF) | payer OTHER, SELFPAY ==
--- NOTE | 2023-01-10 12:18 | PFT_ITS ---
INDICATION: Smoker. POST TEST COMMENTS: The patient did have a hard time with all the maneuvers. Therefore, did not meet ATS standards. SPIROMETRY: FEV1 to FVC 76% with an FEV1 of 2.69 L, which is 78% predicted and an FVC of 3.53 L, which is 76% predicted. Bronchodilators were not used. LUNG VOLUMES: Total lung capacity 95% predicted. DIFFUSION CAPACITY: DLCO of 50% predicted. COMPARISONS: None available. INTERPRETATION: No obstructive nor restrictive ventilatory defects identified. No significant response to bronchodilator is noted. Lung volumes are within normal limits, although the patient does have a moderate isolated diffusion impairment of unclear etiology. Need to consider underlying anemia. Can also consider underlying pulmonary vascular conditions or occult interstitial lung conditions. Clinical correlation warranted. MD ANNALISA Machado/ZAYNAB / [id number]
== END 2023-01-10 00:01 | disposition home or self-care (01) ==
LOC: HO.RESP
PROVIDERS: PCP Student in an Organized Health Care Education/Training Program; Visit Provider Internal Medicine
DX: R09.02 Hypoxemia (principal); F17.200 Nicotine dependence, unspecified, uncomplicated
CPT/HCPCS: 94060; 94727; 94729

== ENCOUNTER 2023-01-22 12:55 | Outpatient (REF) | payer OTHER, SELFPAY ==
[2023-01-31 05:44] LABS: Testosterone, Total 589 ng/dL (250-1100)
== END 2023-01-22 12:56 | disposition home or self-care (01) ==
LOC: HO.LAB 12:55
PROVIDERS: PCP Student in an Organized Health Care Education/Training Program; Visit Provider Urology
DX: Z12.5 Encounter for screening for malignant neoplasm of prostate (principal); E29.1 Testicular hypofunction
CPT/HCPCS: 36415; 84153; 84403; 85027

== ENCOUNTER → 2023-01-28 12:48 | Outpatient (AMB) | payer OTHER, SELFPAY ==
--- NOTE | 2023-01-28 12:48 | MHC.OFFVIS ---
Intake Intake Visit Reasons: 6M PSA/Testo/CBC(Testo pending) Intake Note: Patient is present for Telephone Urology Med: Testosterone Antibiotic Allergy: None Blood Thinner: Aspirin Allergies bee pollen [bee stings] Allergy (Intermediate, Verified 12/31/22 10:04) Swelling HPI HPI Comments History of Present Illness Details Teto is a pleasant male. He is a patient of Dr. Latif. He is seen for the following urologic conditions. 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 No longer tested for seminoma Testosterone - 01/07 577, 01/08 389, 01/09 785 0.8 39, 08/12 544 0,5, 02/09 P 0.6 T pending Associated erectile dysfunction responsive to tadalafil - using on demand 20 mg PSA 01/07 1.0 Therapeutic plan - continue testosterone supplementation PFSH Medical History Cataract COPD (chronic obstructive pulmonary disease) HTN (hypertension) Hyperlipidemia Lymphoma Smoker Testicular cancer Thrombocytopenia Surgical History History of carotid endarterectomy (~09/16/17) History of left-sided carotid endarterectomy Hx of bilateral orchiectomies Hx of cataract extraction Hx of hand surgery Social History Household Members: Family Are you a primary critical care specialist to a significant other at home: No Do you presently have visiting nurse or other home services: No Patient Tobacco Use Status: Current everyday Tobacco user Tobacco use type: Cigarette Cigarette Packs Per Day: 0.5 Cigarettes Per Day: 5 Years Smoked: 46 service: No Current occupational status: retired Review of Systems Const All systems reviewed & are unremarkable except as noted in HPI and below Reports no additional complaints Resp Reports no additional complaints GI Reports no additional complaints Reports as per HPI Musc Reports no additional complaints Physical Exam Telemedicine evaluation Appropriate responses Regular breathing rate and rhythm HEENT Head: Yes normal to inspection Ears: hearing grossly normal bilaterally Eyes General: appearance normal, both eyes and all related structures Neck Neck: Yes normal visual inspection Chest Chest palpation & inspection: normal inspection of the chest Resp Effort & Inspection: normal respiratory effort and able to speak in complete sentences Assessment & Plan Assessment & Plan (1) Testicular cancer: Comment: w/orchiectomy-bilateral Code(s): C62.90 - Malignant neoplasm of unspecified testis, unspecified whether descended or undescended (2) Hypogonadism in male: Code(s): E29.1 - Testicular hypofunction Plan 6 month follow-up Orders: Orders Prostate Specific Antigen 6 Months E29.1 - Testicular hypofunction Testosterone, Total 6 Months E29.1 - Testicular hypofunction Complete Blood Count no Diff 6 Months E29.1 - Testicular hypofunction Medications: Refilled testosterone apply 3 pumps total between EACH upper arm and shoulder 3 pumps topical DAILY 150 grams 5RF 30 days E29.1 - Testicular hypofunction Patient Instructions: Imaging studies, laboratory and physical exam results were discussed and reviewed in detail. No major barriers to patient understanding were identified. An opportunity to ask questions regarding the treatment plan was provided. All questions were answered. The patient expressed understanding and agreement with the above treatment plan. The patient is aware they should contact our office by phone for worsening of their current condition or the appearance of new urologic symptoms. Compliance is encouraged with any medications and followup testing that is ordered. It is a privilege to participate in the urologic care of your patient. If you have any questions or concerns regarding treatment for the above conditions, or other urologic issues, please do not hesitate to contact me. The office telephone contact is [phone]. This note is constructed using voice recognition software. While every effort has been made to ensure accuracy aircraft engine installer errors may have been included. Yours sincerely, Dr Nahid Soriano MD, [facility] - Urology Providers of Expert, Compassionate Care for the Genitourinary System Telehealth Telehealth Location of provider rendering services: practice address Location of patient: address on file Patient Identification confirmed using: Name, : Yes Telehealth method: video Patient verbally consented to treatment: Yes Patient verbally consented to billing insurance company: Yes Patient informed of any privacy concerns related to visit: Yes Coding Level of Care Code Tele Est Pt Level 3 (07782) Diagnoses Testicular cancer C62.90 Hypogonadism in male E29.1
== END ==
PROVIDERS: PCP Student in an Organized Health Care Education/Training Program; Visit Provider Urology
DX: C62.90 Malignant neoplasm of unspecified testis, unspecified whether descended or undescended (principal); E29.1 Testicular hypofunction
CPT/HCPCS: 99213

== ENCOUNTER → 2023-01-28 12:48 | Outpatient (BNVA) | payer OTHER, SELFPAY | PROVIDERS: PCP Student in an Organized Health Care Education/Training Program; Visit Provider Urology ==

== ENCOUNTER 2023-02-26 12:55 | Outpatient (AMB) | payer OTHER, SELFPAY ==
[2023-02-26 13:07] VITALS: BP 142/62; PULSE 71; O2SAT 98; BMI 23.4
--- NOTE | 2023-02-26 13:07 | MHC.OFFVIS ---
Intake Vital Signs 02/26/23 13:07 Height 5 ft 11 in Weight 167 lb 8.821 oz BMI 23.4 BP 142/62 H Blood Pressure Location Lt brachial Position Sitting Pulse 71 Pulse Source Pulse Oximeter Pulse Oximetry (%) 98 Oxygen Delivery Method Room Air Intake Visit Reasons: COPD Intake Note: Pt presents today to discuss PFT. He says everything is going well. He recently had surgery where he says he struggled to keep his oxygen levels up afterwards. PT took his BP this morning which was 117/46. Allergies bee pollen [bee stings] Allergy (Intermediate, Verified 02/26/23 13:29) Swelling Medication List - Last Reconciled 02/26/23 by Mateo Reid MD amlodipine 10 mg PO DAILY aspirin 81 mg PO DAILY atorvastatin 40 mg PO BEDTIME folic acid 1 mg PO DAILY hydrochlorothiazide 12.5 mg PO DAILY metoprolol tartrate 25 mg PO BID testosterone 3 pumps topical DAILY 30 days Do you need a note to return to daycare/school/sports/work: No HPI COPD HPI Details 67 YEARS OLD VERY PLEASANT GENTLEMAN IS HERE FOR FOLLOW-UP, FOR HIS LUNG DISEASE. HE HAS LIFELONG HISTORY OF SMOKING, HAD CUT IT DOWN TO 5 CIGARETTES A DAY, BUT NOW SINCE HIS LAST VISIT HE HAS GONE BACK TO ABOUT 10 CIGARETTES A DAY. BREATHING RON HAS BEEN VERY STABLE. DENIES ANY COUGH OR WHEEZING. HE PLAYS COUGH AND ALSO WALKS ACTIVELY WITHOUT ANY SHORTNESS OF BREATH. HAD HIS LOW-DOSE CT SCAN AT [facility], AND WAS SENT A E NOTICE THAT IT WAS BENIGN. [facility] Medical History Cataract COPD (chronic obstructive pulmonary disease) HTN (hypertension) Hyperlipidemia Lymphoma Smoker Testicular cancer Thrombocytopenia Surgical History History of carotid endarterectomy (~09/16/17) History of left-sided carotid endarterectomy Hx of bilateral orchiectomies Hx of cataract extraction Hx of hand surgery Social History Household Members: Family Are you a primary child care lead teacher to a significant other at home: No Do you presently have visiting nurse or other home services: No Patient Tobacco Use Status: Current everyday Tobacco user Tobacco use type: Cigarette Cigarette Packs Per Day: 0.5 Cigarettes Per Day: 5 Years Smoked: 46 service: No Current occupational status: retired Review of Systems Const All systems reviewed & are unremarkable except as noted in HPI and below Eyes Reports no additional complaints ENT Reports no additional complaints Card Denies chest pain, Denies irregular heart rhythm and Denies leg edema Resp Reports as per HPI GI Reports no additional complaints Details: As noted above he has had bilateral orchiectomy, and is currently on testosterone replacement therapy. Musc Reports no additional complaints Skin/Breast Reports system reviewed and no additional complaints, except as documented Neuro Reports no additional complaints Psych Reports no additional complaints Physical Exam Vital Signs: Last Vital Signs Pulse 71 02/26/23 13:07 BP 142/62 H 02/26/23 13:07 Pulse Ox 98 02/26/23 13:07 Oxygen Delivery Method Room Air 02/26/23 13:07 BMI result Body Mass Index 23.4 Const General: healthy appearing, comfortable, no acute distress, alert and awake Orientation/consciousness: patient oriented x3 HEENT Head: Yes normal to inspection General nose exam: No nasal polyps present and No nasal discharge present Face and sinus: Yes sinuses nontender Mouth: oropharynx normal Throat: Yes posterior oropharynx normal Eyes General: appearance normal, both eyes and all related structures Neck Neck: Yes normal visual inspection, Yes no lymphadenopathy, Yes trachea midline, Yes no JVD and Yes other (Post surgical scars on both sides of the neck) Thyroid: Thyroid normal Chest Chest palpation & inspection: normal inspection of the chest, normal palpation of entire chest wall and no tenderness Resp Other: Percussion note is resonant, he does have equal breath sounds on both sides however breath sounds are distant with prolonged expiratory phase. No wheezes rhonchi or crepitations are heard Cardio Palpation: normal PMI Rate: regular rate Rhythm: regular rhythm Heart sounds: no gallops and no murmurs Peripheral pulses: Peripheral pulses 2+ throughout GI Palpation (GI): Soft to palpation, nontender, No hepatosplenomegaly present and no masses Auscultation: normal bowel sounds Back/Spine/Pelvis Thoracic/Lumbar Spine: thoracic and lumbar spine normal to inspection Skin General skin exam: no rashes or lesions noted Neuro General: patient oriented x3 and no focal motor deficits Cranial nerves: Yes CN's II-XII intact bilaterally Extrem General: Yes normal to inspection, Yes no clubbing, cyanosis or edema and Yes no calf tenderness Psych Appearance: grossly normal and well kempt Speech and movement: Normal speech and movement present Results Reviewed Results Reviewed: PULMONARY FUNCTION TEST REVIEWED WITH HIM FVC 76% FEV1 78% FEV1/FVC 76 TLC 95% DLCO WAS 50% Assessment & Plan Assessment & Plan (1) Smoker: Comment: HAS HISTORY OF SMOKING 1 PACK A DAY FOR 46 YEARS. POST CAROTID ARTERY SURGERY AND FINDING OF HYPOXEMIA, HE HAD CUT DOWN TO 5 CIGARETTES A DAY. SINCE HIS LAST VISIT IN NOVEMBER HE HAS GONE BACK TO 10 CIGARETTES A DAY. WE HAD A LONG DISCUSSION AND I HAVE URGED HIM TO CUT DOWN THE NUMBER OF CIGARETTES AND THEN FINALLY QUIT SOON POSSIBLE. HE IS GOING TO TRY. TO DO IT WITH HIS WILL PUFF DOES NOT WANT TO USE ANY NICOTINE PRODUCTS. HAVING ANNUAL LUNG SCAN AT [facility]. Code(s): F17.200 - Nicotine dependence, unspecified, uncomplicated (2) COPD (chronic obstructive pulmonary disease): Comment: PULMONARY FUNCTION TEST IS ESSENTIALLY WITHIN NORMAL LIMITS EXCEPT FOR ISOLATED DECREASE IN DLCO 50 % DL/VA IS 64%. THIS IS PROBABLY DUE TO PULMONARY EMPHYSEMA. ANYWAY PATIENT DOES NOT NEED ANY BRONCHODILATOR INHALERS. Code(s): J44.9 - Chronic obstructive pulmonary disease, unspecified Coding Level of Care Code Est Pt Level 3 (17294) Diagnoses Smoker F17.200 COPD (chronic obstructive pulmonary disease) J44.9
== END 2023-02-26 13:29 | disposition home or self-care (01) ==
PROVIDERS: PCP Student in an Organized Health Care Education/Training Program; Visit Provider Internal Medicine
DX: F17.200 Nicotine dependence, unspecified, uncomplicated (principal); J44.9 Chronic obstructive pulmonary disease, unspecified
CPT/HCPCS: 99213

== ENCOUNTER → 2023-02-26 12:55 | Outpatient (BNVA) | payer OTHER, SELFPAY | PROVIDERS: PCP Student in an Organized Health Care Education/Training Program; Visit Provider Internal Medicine ==

== ENCOUNTER 2023-06-18 09:39 | Outpatient (REF) | payer OTHER, SELFPAY ==
--- NOTE | ~2023-06-18 | US_ITS ---
EXAMINATION: US EXTRACRANIAL CAROTID DUPLEX, BILATERAL CLINICAL INFORMATION: Carotid stenosis. COMPARISON: 12/23/2022 TECHNIQUE: Real-time ultrasound and Doppler techniques (integrating B-mode 2-D vascular images, Doppler spectral analysis and color-flow Doppler imaging) were utilized to interrogate the extracranial carotid arteries, the vertebral arteries and proximal subclavian arteries bilaterally. The degree of stenosis is determined by criteria similar to NASCET. FINDINGS: Right Side: 1. There is mild atherosclerotic plaque seen in the bifurcation/proximal ICA region. 2. The common carotid artery PSV proximally is 116 cm/s and distally 112 cm/s. 3. The proximal internal carotid artery velocities are 113 cm/s systolic and 25 cm/s diastolic. 4. The proximal external carotid artery PSV is 159 cm/s. 5. The vertebral artery shows antegrade flow. 6. The subclavian artery waveforms are normal. Left Side: 1. There is mild atherosclerotic plaque seen in the bifurcation/proximal ICA region. 2. The common carotid artery PSV proximally is 92 cm/s and distally 113 cm/s. 3. The proximal internal carotid artery velocities are 76 cm/s systolic and 24 cm/s diastolic. 4. The proximal external carotid artery PSV is 141 cm/s. 5. The vertebral artery shows antegrade flow. 6. The subclavian artery waveforms are normal. US/US carotid duplex BI IMPRESSION: 1. RIGHT: Minimal, non-hemodynamically significant stenosis of the proximal right internal carotid artery corresponding to a 0-49% stenosis by velocity criteria. 2. LEFT: Minimal, non-hemodynamically significant stenosis of the proximal left internal carotid artery corresponding to a 0-49% stenosis by velocity criteria. 3. There is no change in the category severity of disease when compared to the previous study dated 12/23/2022.
== END 2023-06-18 09:40 | disposition home or self-care (01) ==
LOC: HO.US 09:39
PROVIDERS: PCP Student in an Organized Health Care Education/Training Program; Visit Provider Surgery Vascular Surgery
DX: I65.23 Occlusion and stenosis of bilateral carotid arteries (principal)
CPT/HCPCS: 93880

== ENCOUNTER 2023-08-07 10:56 | Outpatient (AMB) | payer OTHER, SELFPAY ==
[2023-08-07 10:56] VITALS: BP 126/70; PULSE 92; O2SAT 97; BMI 22.5
--- NOTE | 2023-08-07 10:56 | A.OFFVIS_ITS ---
Intake Vital Signs 08/07/23 10:56 08/07/23 11:00 Height 5 ft 11 in Weight 161 lb BMI 22.5 BP 126/70 136/70 Blood Pressure Location Rt brachial Lt brachial Position Sitting Sitting Pulse 92 Pulse Source Pulse Oximeter Pulse Oximetry (%) 97 Oxygen Delivery Method Room Air Intake Visit Reasons: Follow up on ultrasound of carotid Intake Note: Pt presents to the office today for a follow u carotid US. Pt states he is feeling well. and denies any concerns at this time. Allergies bee pollen [bee stings] Allergy (Intermediate, Verified 08/07/23 11:00) Swelling HPI Follow up on ultrasound of carotid HPI Details Very pleasant 67-year-old gentleman presents for follow-up regarding carotid surveillance. He would undergone left carotid endarterectomy in August of 2022 and right carotid endarterectomy in August of 2017.. He reports that he is doing fairly well since that time. No interval issues. He continues to smoke about 5 cigarettes daily. Now presents for surveillance follow-up with noninvasive testing. Of note he is being maintained on aspirin and statin. [facility] Medical History COPD (chronic obstructive pulmonary disease) Smoker HTN (hypertension) Thrombocytopenia Hyperlipidemia Cataract Testicular cancer Lymphoma Surgical History History of left-sided carotid endarterectomy Hx of cataract extraction Hx of hand surgery Hx of bilateral orchiectomies History of carotid endarterectomy (~09/16/17) Social History (Updated 08/07/23 @ 11:02 by Gemma Gibbons MA) Household Members: Family Are you a primary home health care respiratory therapist to a significant other at home: No Do you presently have visiting nurse or other home services: No Alcohol intake: never Patient Tobacco Use Status: Current everyday Tobacco user Tobacco use type: Cigarette Cigarettes Per Day: 5 Years Smoked: 46 service: No Current occupational status: retired Review of Systems Const All systems reviewed & are unremarkable except as noted in HPI and below Reports no additional complaints ENT Reports Normal hearing present Card Denies chest pain, Denies chest pain at rest, Denies chest pain with activity and Denies pedal edema Resp Denies cough GI Denies abdominal pain Musc Denies abnormal gait, Denies muscle cramps and Denies radiating pain into limb Skin/Breast Denies skin ulcer and Denies wounds Neuro Reports Normal hearing present and Denies abnormal gait Psych Reports no additional complaints Physical Exam Vital Signs: Last Vital Signs Pulse 92 08/07/23 10:56 BP 136/70 08/07/23 11:00 Pulse Ox 97 08/07/23 10:56 Oxygen Delivery Method Room Air 08/07/23 10:56 BMI result Body Mass Index 22.5 Const General: cooperative, healthy appearing and comfortable Orientation/consciousness: oriented to person, oriented to place and oriented to time HEENT Head: Yes normal to inspection Neck Neck: Yes normal visual inspection Carotids: no bruits Chest Chest palpation & inspection: normal inspection of the chest Resp Effort & Inspection: normal respiratory effort and able to speak in complete sentences Auscultation: clear to auscultation bilaterally, no crackles, no rales, no rhonchi and no wheezes Cardio Rate: regular rate Rhythm: regular rhythm Heart sounds: S1 normal heart sound present and S2 normal heart sound present Bruits: no carotid bruits Peripheral pulses: Peripheral pulses 2+ throughout GI Inspection: Yes normal to inspection Skin Wounds: no wounds Hair: normal Neuro General: oriented to person, oriented to place and oriented to time Cranial nerves: Yes CN's II-XII intact bilaterally and Yes Normal hearing present Cognition (Neuro): normal cognition Motor exam (neuro): 5/5 motor strength present throughout Extrem Other: venous exam: No significant superficial varicosities or spider telangiectasias, minimal edema General: No clubbing, No cyanosis and No edema Psych Appearance: grossly normal Mental Status: mental status grossly normal Speech and movement: Normal speech and movement present Results Reviewed Results Reviewed: Noninvasive arterial testing dated 06/18/2023 demonstrates bilateral 0-49% stenosis. Assessment & Plan Assessment & Plan (1) Carotid stenosis, bilateral: Comment: 09/16/2017 right carotid endarterectomy 09/16/2022- left carotid endarterectomy Code(s): I65.23 - Occlusion and stenosis of bilateral carotid arteries Plan: In short patient has asymptomatic carotid disease. We have reviewed signs and symptoms of a stroke. We also discussed risk factor modification inclusive a healthy diet low in cholesterol. The patient will follow up with us with surveillance ultrasound of the carotids 1 year. Should there be any changes or signs or symptoms of a stroke we will be happy to see them back sooner. Thank you for allowing us to participate in this patient's care. If there are any questions or concerns please do not hesitate to contact us. Orders: Orders US carotid duplex BI 364 Days I65.23 - Occlusion and stenosis of bilateral carotid arteries Coding Level of Care Code Est Pt Level 4 (09002) Diagnoses Carotid stenosis, bilateral I65.23
[2023-08-07 11:00] VITALS: BP 136/70
== END 2023-08-07 11:10 | disposition home or self-care (01) ==
PROVIDERS: PCP Student in an Organized Health Care Education/Training Program; Visit Provider Surgery Vascular Surgery
DX: I65.23 Occlusion and stenosis of bilateral carotid arteries (principal)
CPT/HCPCS: 99213

== ENCOUNTER → 2023-08-07 10:56 | Outpatient (BNVA) | payer OTHER, SELFPAY | PROVIDERS: PCP Student in an Organized Health Care Education/Training Program; Visit Provider Surgery Vascular Surgery ==

== ENCOUNTER 2023-08-26 13:00 | Outpatient (AMB) | payer OTHER, SELFPAY ==
[2023-08-26 13:12] VITALS: BP 142/60; PULSE 64; O2SAT 99; BMI 23.5
--- NOTE | 2023-08-26 13:12 | MHC.OFFVIS ---
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 Breathing balderas he has no issue at all, only occasional cough related to smoking. He does not need to use any inhalers. Smoking is down to 5 cigarettes a day and he is definitely trying to quit slowly. He is getting annual lung scan, [facility]. [facility] Medical History COPD (chronic obstructive pulmonary disease) Smoker HTN (hypertension) Thrombocytopenia Hyperlipidemia Cataract Testicular cancer Lymphoma Surgical History History of left-sided carotid endarterectomy Hx of cataract extraction Hx of hand surgery Hx of bilateral orchiectomies History of carotid endarterectomy (~09/16/17) Social History Household Members: Family Are you a primary cardiac care unit nurse to a significant other at home: No Do you presently have visiting nurse or other home services: No Alcohol intake: never Patient Tobacco Use Status: Current everyday Tobacco user Tobacco use type: Cigarette Cigarettes Per Day: 5 Years Smoked: 46 service: No Current occupational status: retired Review of Systems Const All systems reviewed & are unremarkable except as noted in HPI and below Eyes Reports no additional complaints ENT Reports no additional complaints Card Denies chest pain, Denies irregular heart rhythm and Denies leg edema Resp Reports as per HPI GI Reports no additional complaints Details: As noted above he has had bilateral orchiectomy, and is currently on testosterone replacement therapy. Musc Reports no additional complaints Skin/Breast Reports system reviewed and no additional complaints, except as documented Neuro Reports no additional complaints Psych Reports no additional complaints Physical Exam Vital Signs: Last Vital Signs Pulse 64 08/26/23 13:12 BP 142/60 H 08/26/23 13:12 Pulse Ox 99 08/26/23 13:12 Oxygen Delivery Method Room Air 08/26/23 13:12 BMI result Body Mass Index 23.5 Const General: healthy appearing, comfortable, no acute distress, alert and awake Orientation/consciousness: patient oriented x3 HEENT Head: Yes normal to inspection General nose exam: No nasal polyps present and No nasal discharge present Face and sinus: Yes sinuses nontender Mouth: oropharynx normal Throat: Yes posterior oropharynx normal Eyes General: appearance normal, both eyes and all related structures Neck Neck: Yes normal visual inspection, Yes no lymphadenopathy, Yes trachea midline, Yes no JVD and Yes other (Post surgical scars on both sides of the neck) Thyroid: Thyroid normal Chest Chest palpation & inspection: normal inspection of the chest, normal palpation of entire chest wall and no tenderness Resp Other: Percussion note is resonant, he does have equal breath sounds on both sides however breath sounds are distant with prolonged expiratory phase. No wheezes rhonchi or crepitations are heard Cardio Palpation: normal PMI Rate: regular rate Rhythm: regular rhythm Heart sounds: no gallops and no murmurs Peripheral pulses: Peripheral pulses 2+ throughout GI Palpation (GI): Soft to palpation, nontender, No hepatosplenomegaly present and no masses Auscultation: normal bowel sounds Back/Spine/Pelvis Thoracic/Lumbar Spine: thoracic and lumbar spine normal to inspection Skin General skin exam: no rashes or lesions noted Neuro General: patient oriented x3 and no focal motor deficits Cranial nerves: Yes CN's II-XII intact bilaterally Extrem General: Yes normal to inspection, Yes no clubbing, cyanosis or edema and Yes no calf tenderness Psych Appearance: grossly normal and well kempt Speech and movement: Normal speech and movement present Assessment & Plan Assessment & Plan (1) COPD (chronic obstructive pulmonary disease): Comment: PULMONARY FUNCTION TEST WAS ESSENTIALLY WITHIN NORMAL LIMITS EXCEPT FOR ISOLATED DECREASE IN DLCO 50 % DL/VA IS 64%. THIS IS PROBABLY DUE TO PULMONARY EMPHYSEMA. ANYWAY PATIENT DOES NOT NEED ANY BRONCHODILATOR INHALERS. Code(s): J44.9 - Chronic obstructive pulmonary disease, unspecified Plan: ABOVE (2) Smoker: Comment: HAS HISTORY OF SMOKING 1 PACK A DAY FOR 46 YEARS. POST CAROTID ARTERY SURGERY AND FINDING OF HYPOXEMIA, HE HAD CUT DOWN TO 5 CIGARETTES A DAY. SINCE LAST YEAR HE HAD GONE BACK TO 10 CIGARETTES A DAY. NOW AGAIN CUT DOWN TO 5 CIGARETTES A DAY WE HAD A LONG DISCUSSION AND I HAVE URGED HIM TO MAKE BEST EFFORT TO QUIT COMPLETELY . HAVING ANNUAL LUNG SCREENING AT [facility] . Code(s): F17.200 - Nicotine dependence, unspecified, uncomplicated Plan: ABOVE Coding Level of Care Code Est Pt Level 3 (35219) Diagnoses COPD (chronic obstructive pulmonary disease) J44.9 Smoker F17.200
== END 2023-08-26 13:29 | disposition home or self-care (01) ==
PROVIDERS: PCP Student in an Organized Health Care Education/Training Program; Visit Provider Internal Medicine
DX: J44.9 Chronic obstructive pulmonary disease, unspecified (principal); F17.200 Nicotine dependence, unspecified, uncomplicated
CPT/HCPCS: 99213

== ENCOUNTER → 2023-08-26 13:00 | Outpatient (BNVA) | payer OTHER, SELFPAY | PROVIDERS: PCP Student in an Organized Health Care Education/Training Program; Visit Provider Internal Medicine ==

== ENCOUNTER 2023-09-19 09:42 | Outpatient (AMB) | payer OTHER, SELFPAY ==
--- NOTE | 2023-09-19 09:47 | A.OFFVIS_ITS ---
Intake Intake Visit Reasons: 6M PSA/TESTO/CBC(set)Confirmed Intake Note: Patient presents today for labs follow-up Meds- Testosterone Allergies to Antibiotic- No Known Allergies Blood Thinner- Aspirin Physician Practice Consultant Required: No Accompanied by: Self / Same As Patient Allergies bee pollen [bee stings] Allergy (Intermediate, Verified 09/19/23 10:17) Swelling Medication List - Last Reconciled 09/19/23 by Nahid Soriano MD aspirin 81 mg PO DAILY atorvastatin 40 mg PO BEDTIME folic acid 1 mg PO DAILY losartan 50 mg PO DAILY metoprolol tartrate 25 mg PO BID testosterone 3 pumps topical DAILY 30 days HPI HPI Comments History of Present Illness Details Teto is a pleasant male. He is a patient of Dr. Latif. He is seen for the following urologic conditions. 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 No longer tested for seminoma Testosterone - 01/07 577, 01/08 389, 01/09 785 0.8 39, 544 0,5, 02/09 P 0.6 T 589, 08/13 670 Associated erectile dysfunction responsive to tadalafil - using on demand 20 mg PSA 01/07 1.0 Therapeutic plan - continue testosterone supplementation [facility] Medical History COPD (chronic obstructive pulmonary disease) Smoker HTN (hypertension) Thrombocytopenia Hyperlipidemia Cataract Testicular cancer Lymphoma Surgical History History of left-sided carotid endarterectomy Hx of cataract extraction Hx of hand surgery Hx of bilateral orchiectomies History of carotid endarterectomy (~09/16/17) Social History (Reviewed 09/19/23 @ 10:18 by EDWIGE Valadez Household Members: Family Are you a primary health care marketing manager to a significant other at home: No Do you presently have visiting nurse or other home services: No Alcohol intake: never Patient Tobacco Use Status: Current everyday Tobacco user Tobacco use type: Cigarette Cigarettes Per Day: 5 Years Smoked: 46 service: No Current occupational status: retired Review of Systems Const Denies chills and Denies fever(s) Card Reports no additional complaints and Denies syncope Resp Denies cough GI Denies abdominal pain and Denies heartburn Reports as per HPI and Denies change in libido Neuro Denies syncope Psych Denies change in libido Endo Denies change in libido Physical Exam Const General: cooperative, healthy appearing, comfortable and no acute distress Orientation/consciousness: patient oriented x3 HEENT Face and sinus: Yes normal facial exam Mouth: moist mucous membranes Neck Neck: Yes normal visual inspection, Yes full ROM and Yes trachea midline Chest Chest palpation & inspection: normal inspection of the chest Resp Effort & Inspection: normal respiratory effort, able to speak in complete sentences and no respiratory distress GI Inspection: Yes normal to inspection Back/Spine/Pelvis Cervical Spine: normal cervical lordosis Thoracic/Lumbar Spine: thoracic and lumbar spine normal to inspection Skin General skin exam: no rashes or lesions noted Neuro General: patient oriented x3, gait normal, tone normal and moves all extremities Extrem General: Yes normal to inspection and Yes capillary refill normal Assessment & Plan Assessment & Plan (1) Hypogonadism in male: Code(s): E29.1 - Testicular hypofunction (2) Testicular cancer: Comment: w/orchiectomy-bilateral Code(s): C62.90 - Malignant neoplasm of unspecified testis, unspecified whether descended or undescended (3) Erectile dysfunction due to arterial insufficiency: Code(s): N52.01 - Erectile dysfunction due to arterial insufficiency Plan Six-month follow-up Orders: Orders Prostate Specific Antigen 6 Months E29.1 - Testicular hypofunction Complete Blood Count no Diff 6 Months E29.1 - Testicular hypofunction Testosterone, Total 6 Months E29.1 - Testicular hypofunction Patient Instructions: Imaging studies, laboratory and physical exam results were discussed and reviewed in detail. No major barriers to patient understanding were identified. An opportunity to ask questions regarding the treatment plan was provided. All questions were answered. The patient expressed understanding and agreement with the above treatment plan. The patient is aware they should contact our office by phone for worsening of their current condition or the appearance of new urologic symptoms. Compliance is encouraged with any medications and followup testing that is ordered. It is a privilege to participate in the urologic care of your patient. If you have any questions or concerns regarding treatment for the above conditions, or other urologic issues, please do not hesitate to contact me. The office telephone contact is [phone]. This note is constructed using voice recognition software. While every effort has been made to ensure accuracy tack welder errors may have been included. Yours sincerely, Dr Nahid Soriano MD, [facility] - Urology Providers of Expert, Compassionate Care for the Genitourinary System Coding Level of Care Code Est Pt Level 3 (28374) Diagnoses Hypogonadism in male E29.1 Testicular cancer C62.90 Erectile dysfunction due to arterial insufficiency N52.01
== END 2023-09-19 10:48 | disposition home or self-care (01) ==
PROVIDERS: PCP Student in an Organized Health Care Education/Training Program; Visit Provider Urology
DX: E29.1 Testicular hypofunction (principal); C62.90 Malignant neoplasm of unspecified testis, unspecified whether descended or undescended; N52.01 Erectile dysfunction due to arterial insufficiency
CPT/HCPCS: 99213

== ENCOUNTER → 2023-09-19 09:42 | Outpatient (BNVA) | payer OTHER, SELFPAY | PROVIDERS: PCP Student in an Organized Health Care Education/Training Program; Visit Provider Urology ==

== ENCOUNTER 2024-01-06 13:36 | Outpatient (AMB) | payer OTHER, SELFPAY ==
[2024-01-06 13:39] VITALS: BMI 23.4
--- NOTE | 2024-01-06 13:39 | A.OFFVIS_ITS ---
Vital Signs 01/06/24 13:39 Height 5 ft 11 in Weight 168 lb BMI 23.4 Intake Visit Reasons: Add-on Right LE pain( PCP wants seen) Intake Note: PRN for Right LE pain, pt states pain w/ ambulation, worse w/ incline. Pt states when he first wakes up it starts to cramp and when he walks across the yard it gets painful. Pt states it starts in the hip-bone and goes through the hamstring. Accompanied by: Spouse Allergies bee pollen [bee stings] Allergy (Intermediate, Verified 01/06/24 13:50) Swelling HPI HPI Add-on Right LE pain( PCP wants seen): Details: Very pleasant 68-year-old gentleman presents for urgent re-evaluation regarding lower extremity pain. He is a known patient to us as we had done is left carotid endarterectomy in August of 2022 and right carotid endarterectomy in August of 2017. Has been doing fairly well on routine surveillance. Most recently he has been experiencing lower extremity pain in particular right hamstring. He reports he continues to smoke about a half pack per day. Now p resents to us for vascular evaluation regarding his lower extremities. [facility] Medical History COPD (chronic obstructive pulmonary disease) Smoker HTN (hypertension) Thrombocytopenia Hyperlipidemia Cataract Testicular cancer Lymphoma Surgical History History of left-sided carotid endarterectomy Hx of cataract extraction Hx of hand surgery Hx of bilateral orchiectomies History of carotid endarterectomy (~09/16/17) Social History Household Members: Family Are you a primary resident care supervisor to a significant other at home: No Do you presently have visiting nurse or other home services: No Alcohol intake: never Patient Tobacco Use Status: Current everyday Tobacco user Tobacco use type: Cigarette Cigarettes Per Day: 5 Years Smoked: 46 service: No Current occupational status: retired Review of Systems Const All systems reviewed & are unremarkable except as noted in HPI and below Reports no additional complaints ENT Reports Normal hearing present Card Denies chest pain, Denies chest pain at rest, Denies chest pain with activity and Denies pedal edema Resp Denies cough GI Denies abdominal pain Musc Denies abnormal gait, Denies muscle cramps and Denies radiating pain into limb Skin/Breast Denies skin ulcer and Denies wounds Neuro Reports Normal hearing present and Denies abnormal gait Psych Reports no additional complaints Physical Exam Vital Signs: BMI result Body Mass Index 23.4 Const General: cooperative, healthy appearing and comfortable Orientation/consciousness: oriented to person, oriented to place and oriented to time HEENT Head: Yes normal to inspection Neck Neck: Yes normal visual inspection Carotids: no bruits Chest Chest palpation & inspection: normal inspection of the chest Resp Effort & Inspection: normal respiratory effort and able to speak in complete sentences Auscultation: clear to auscultation bilaterally, no crackles, no rales, no rhonchi and no wheezes Cardio Other: Palpable DP pulses bilateral Rate: regular rate Rhythm: regular rhythm Heart sounds: S1 normal heart sound present and S2 normal heart sound present Bruits: no carotid bruits Peripheral pulses: Peripheral pulses 2+ throughout GI Inspection: Yes normal to inspection Skin Wounds: no wounds Hair: normal Neuro General: oriented to person, oriented to place and oriented to time Cranial nerves: Yes CN's II-XII intact bilaterally and Yes Normal hearing present Cognition (Neuro): normal cognition Motor exam (neuro): 5/5 motor strength present throughout Extrem Other: venous exam: No significant superficial varicosities or spider telangiectasias, minimal edema General: No clubbing, No cyanosis and No edema Psych Appearance: grossly normal Mental Status: mental status grossly normal Speech and movement: Normal speech and movement present Assessment & Plan Assessment & Plan (1) Leg pain, bilateral: Code(s): M79.604 - Pain in right leg; M79.605 - Pain in left leg Category: Medical Plan: In short patient appears to have lower extremity pain. It does not appear to be vascular in nature as he does have palpable bilateral dorsalis pedis pulses. Upon discussion with him he does have lower back pain in his walking in a more forward position according to the . The concern here is he may have an element of spinal stenosis or back issues. He does have persistent lower back pain. I have taken the liberty of referring him to pain management for further evaluation workup and treatment. He will follow up with us for routine carotid surveillance. Thank you for allowing us to assist in his care. If there are any questions or concerns please do not hesitate to contact us. (2) Carotid stenosis, bilateral: Comment: 09/16/2017 right carotid endarterectomy 09/16/2022- left carotid endarterectomy Code(s): I65.23 - Occlusion and stenosis of bilateral carotid arteries Category: Medical Plan: Keep routine surveillance exam follow-up Coding Level of Care Code Est Pt Level 3 (11559) Diagnoses Leg pain, bilateral M79.604; M79.605 Carotid stenosis, bilateral I65.23
== END 2024-01-06 14:07 | disposition home or self-care (01) ==
PROVIDERS: PCP Student in an Organized Health Care Education/Training Program; Visit Provider Surgery Vascular Surgery
DX: M79.604 Pain in right leg (principal); M79.605 Pain in left leg; I65.23 Occlusion and stenosis of bilateral carotid arteries
CPT/HCPCS: 99213

== ENCOUNTER → 2024-01-06 13:36 | Outpatient (BNVA) | payer OTHER, SELFPAY | PROVIDERS: PCP Student in an Organized Health Care Education/Training Program; Visit Provider Surgery Vascular Surgery ==

== ENCOUNTER 2024-01-29 13:51 | Outpatient (AMB) | payer OTHER, SELFPAY ==
--- NOTE | 2024-01-29 13:55 | A.OFFVIS_ITS ---
Vital Signs 01/29/24 13:56 Height 6 ft BP 163/71 H Blood Pressure Location Rt brachial Position Sitting Respiration 16 Pulse 69 Pulse Source Pulse Oximeter Pulse Oximetry (%) 96 Oxygen Delivery Method Room Air Intake Visit Reasons: BILATERAL LEG PAIN Allergies bee pollen [bee stings] Allergy (Intermediate, Verified 01/29/24 14:02) Swelling Medication List - Last Reconciled 01/29/24 by Manda Mackenzie aspirin 81 mg PO DAILY atorvastatin 40 mg PO BEDTIME folic acid 1 mg PO DAILY losartan 50 mg PO DAILY metoprolol tartrate 25 mg PO BID testosterone 3 pumps topical DAILY 30 days HPI Comments Details: Teto is a very pleasant 68-year-old male who presents the office today accompanied by his for evaluation management his lower back. Patient endorses some left lower back pain but states pain is in the right thigh. Denies trauma, injury, fall. Pain today is 1/10, 5/10 when at its worst. Endorses radiation of the pain down to the right calf with some cramping of the thigh muscle Pain is worse with walking, standing, sitting. Pain increase with coughing. Improves with rest. Endorses discomfort in both legs and fatigue with walking. This is improved with rest. He does endorse improvement in the symptoms with slight forward flexion while walking. He has been ruled out by vascular for vascular claudication symptoms. Patient has tried nonsteroidal anti-inflammatory medication without improvement in his pain. He is currently taking Tylenol with minimal improvement Denies red flag symptoms including new loss of bowel, bladder or saddle ane sthesia. In terms of muscle damage condition is described as sharp, stabbing, tiring, spreading, dull, sore, hurting, aching, pulsing, throbbing, pinching, cramping Pain is negatively impacting patient's general activity, enjoyment of life, recreational activities, walking Denies current use of anticoagulants Denies implantable devices, pacemaker or defibrillator [facility] Medical History COPD (chronic obstructive pulmonary disease) Smoker HTN (hypertension) Thrombocytopenia Hyperlipidemia Cataract Testicular cancer Lymphoma Surgical History History of left-sided carotid endarterectomy Hx of cataract extraction Hx of hand surgery Hx of bilateral orchiectomies History of carotid endarterectomy (~02/27/18) Social History Household Members: Family Are you a primary rn progressive care to a significant other at home: No Do you presently have visiting nurse or other home services: No Alcohol intake: never Patient Tobacco Use Status: Current everyday Tobacco user Tobacco use type: Cigarette Cigarettes Per Day: 5 Years Smoked: 46 service: No Current occupational status: retired Review of Systems Const All systems reviewed & are unremarkable except as noted in HPI and below Physical Exam Vital Signs: Last Vital Signs Pulse 69 01/29/24 13:56 Resp 16 01/29/24 13:56 BP 163/71 H 01/29/24 13:56 Pulse Ox 96 01/29/24 13:56 Oxygen Delivery Method Room Air 01/29/24 13:56 General: awake, alert, oriented. Answers questions appropriately. Fully engaged in examination. Skin: warm, dry, intact HEENT: Normocephalic. Hearing intact. Cardiac: External chest normal in appearance. Respiratory: No cough, audible wheezing or stridor. Abdomen: without gross distension. MS: No obvious swelling or deformities. Able to stand on bilateral tiptoes and bilateral heels.? Able to transition from sit to stand unassisted. Ambulates with bilaterally normal heel strike and toe off Bilateral lower extremity strength 5/5 Negative footdrop Negative clonus SLR negative bilaterally Facet loading negative Nontender over PSIS Valsalva positive Full lumbar range of motion Neurological: Oriented to person, place, time and situation. Thought process intact. No gait abnormalities appreciated. Psychiatric: Appropriate mood and affect. Good judgment and insight. Assessment & Plan Assessment & Plan (1) Spinal stenosis: Code(s): M48.00 - Spinal stenosis, site unspecified Category: Medical (2) Myofascial low back pain: Code(s): M54.50 - Low back pain, unspecified Category: Medical Plan Teto presented to the office today for evaluation management of history chronic back and leg pain History, physical exam and provocative testing concerning for spinal stenosis with neurogenic claudication as well as myofascial back pain. MRI lumbar spine ordered to evaluate for degree of spinal stenosis Methocarbamol 500 mg p.o. b.i.d. as needed, patient advised on cautions for use. All questions and concerns were answered, patient agrees with the plan. Follow up after MRI, sooner if needed Orders: Orders MR lumbar spine wo con Today M48.00 - Spinal stenosis, site unspecified Medications: New methocarbamol No driving while taking this medication. Do no take with alcohol or other [employer] DES[employer] Depressants 500 mg PO BID 90 days PRN 120 tabs 0RF muscle spasm Coding Level of Care Code New Pt Level 4 (42410) Diagnoses Spinal stenosis M48.00 Myofascial low back pain M54.50
[2024-01-29 13:56] VITALS: BP 163/71; PULSE 69; RESP 16; O2SAT 96
== END 2024-01-29 14:48 | disposition home or self-care (01) ==
PROVIDERS: PCP Student in an Organized Health Care Education/Training Program; Referring Provider Surgery Vascular Surgery; Visit Provider Registered Nurse Emergency
DX: M48.00 Spinal stenosis, site unspecified (principal); M54.50 Low back pain, unspecified
CPT/HCPCS: 99204

== ENCOUNTER → 2024-01-29 13:51 | Outpatient (BNVA) | payer OTHER, SELFPAY | PROVIDERS: PCP Student in an Organized Health Care Education/Training Program; Referring Provider Surgery Vascular Surgery; Visit Provider Registered Nurse Emergency ==

== ENCOUNTER 2024-03-13 12:45 | Outpatient (REF) | payer OTHER, SELFPAY ==
--- NOTE | ~2024-03-13 | MR_ITS ---
MRI OF THE LUMBAR SPINE WITHOUT CONTRAST CLINICAL INFORMATION: Spinal stenosis. COMPARISON: None available. TECHNIQUE: Multiplanar multisequence MR imaging of the lumbar spine obtained without contrast. FINDINGS: There are 5 nonrib-bearing lumbar-type vertebral bodies. There is a severe leftward convex curvature of the lumbar spine with the apex at L2. There is grade 1 left lateral listhesis of L2 on L3 and L3 on L4. There is severe disc volume loss at L1-L2, L2-L3, and L4-L5. Moderate disc volume loss at L3-L4 and L5-S1. There are Modic type I endplate signal changes at L3-L4 and there are Modic type II endplate signal changes at L2-L3 and L4-L5. There are multilevel endplate osteophytes. The conus terminates at the T12 level. There is right renal atrophy. Colonic diverticulosis. A synovial cyst projects anteriorly from the severely degenerative left T11-T12 facet joint, encroaching upon the left subarticular zone. Disc osteophyte and facet arthropathy result in moderate left-sided foraminal stenosis at this level. L1-L2: A right paracentral/right lateral disc osteophyte protrusion results in mass effect on the traversing right L2 nerve root within the right subarticular zone and moderate right-sided foraminal stenosis with mass effect on the extraforaminal right L1 nerve root. Mild narrowing of the central canal. No left foraminal stenosis. L2-L3: There is a diffuse disc osteophyte complex eccentric to the right and there is severe bilateral facet arthropathy and ligamentum flavum thickening. Findings in concert result in right subarticular zone stenosis with mass effect on the traversing right L3 nerve root and moderate right-sided foraminal stenosis with mass effect on the extraforaminal right L2 nerve root. L3-L4: There is a diffuse annular disc bulge with a superimposed shallow right paracentral disc protrusion and there is severe bilateral facet arthropathy and ligamentum flavum thickening. These findings in concert result in moderate to severe central canal stenosis, severe bilateral subarticular zone stenosis with compression of the traversing L4 nerve roots bilaterally, and moderate bilateral foraminal stenosis with mass effect on the extraforaminal L3 nerve roots bilaterally. L4-L5: There is a diffuse disc osteophyte complex and there is severe bilateral facet arthropathy and ligamentum flavum thickening. Findings in concert result in severe left subarticular zone stenosis with compression of the traversing left L5 nerve root and severe left foraminal stenosis with compression of the exiting left L4 nerve root. L5-S1: There is a diffuse disc osteophyte complex and severe bilateral facet arthropathy. No central canal stenosis. Mild foraminal encroachment bilaterally. MR/MR lumbar spine wo con IMPRESSION: * Severe leftward convex curvature of the lumbar spine superimposed on advanced multilevel degenerative disc disease and hypertrophic facet arthropathy: * At L4-L5, multifactorial degenerative changes result in severe left subarticular zone stenosis with compression of the traversing left L5 nerve root and severe left foraminal stenosis with compression of the exiting left L4 nerve root. * At L3-L4, multifactorial degenerative changes result in moderate to severe central canal stenosis, severe bilateral subarticular zone stenosis with compression of the traversing L4 nerve roots bilaterally, and moderate bilateral foraminal stenosis with mass effect on the extraforaminal L3 nerve roots bilaterally. Modic type I endplate signal changes at this level. * At L2-L3, multifactorial degenerative changes result in right subarticular zone stenosis with mass effect on the traversing right L3 nerve root and moderate right-sided foraminal stenosis with mass effect on the extraforaminal right L2 nerve root. * At L1-L2, a right paracentral/right lateral disc osteophyte protrusion results in mass effect on the traversing right L2 nerve root within the right subarticular zone and moderate right-sided foraminal stenosis with mass effect on the extraforaminal right L1 nerve root. * A synovial cyst projects anteriorly from the severely degenerative left T11-T12 facet joint, encroaching upon the left subarticular zone. There is inflammatory change within the right T11-T12 neural foramen which is moderately stenotic. Electronically signed by: Shai Jenkins MD 03/26/2024 08:51 AM EDT
== END 2024-03-13 12:46 | disposition home or self-care (01) ==
LOC: HO.MRI 12:45
PROVIDERS: PCP Student in an Organized Health Care Education/Training Program; Visit Provider Registered Nurse Emergency
DX: M48.00 Spinal stenosis, site unspecified (principal)
CPT/HCPCS: 72148

== ENCOUNTER 2024-03-29 10:41 | Outpatient (REF) | payer OTHER, SELFPAY ==
[2024-03-29 12:05] LABS: Hematocrit 35.9 % (42.0-52.0); Hemoglobin 12.6 g/dl (14.0-18.0); Mean Corpuscular HGB Conc 35.1 g/dl (31.0-36.0); Mean Corpuscular Hemoglobin 34.1 pg (27.0-33.0); Mean Corpuscular Volume 97.3 fL (80.0-98.0); Mean Platelet Volume 10.7 fL (9.4-12.4); Platelet Count 66 X10*3/uL (160-400); Red Blood Count 3.69 X10*6/uL (4.60-5.80); Red Cell Distribution Width 14.6 % (11.0-16.0); White Blood Count 5.2 X10*3/uL (4.8-10.8)
[2024-03-29 12:50] LABS: Prostate Specific Antigen 1.09 ng/mL (<0.05-4.0)
[2024-04-03 14:13] LABS: Testosterone, Total 646 ng/dL (250-1100)
== END 2024-03-29 10:42 | disposition home or self-care (01) ==
LOC: HO.LAB 10:41
PROVIDERS: PCP Internal Medicine; Visit Provider Urology
DX: E29.1 Testicular hypofunction (principal); Z12.5 Encounter for screening for malignant neoplasm of prostate
CPT/HCPCS: 36415; 84153; 84403; 85027

== ENCOUNTER 2024-04-02 15:11 | Outpatient (AMB) | payer OTHER, SELFPAY ==
--- NOTE | 2024-04-02 15:17 | A.OFFVIS_ITS ---
Intake Visit Reasons: Discuss MRI results Allergies bee pollen [bee stings] Allergy (Intermediate, Verified 01/29/24 14:02) Swelling HPI Comments Details: Telephone visit completed today with you in his for review of recent MRI. MRI reviewed, results as per below Patient has been using muscle relaxers with some improvement of symptoms. Is able to decrease Tylenol use while taking the muscle relaxers or so only for few hours. Denies any side effects with the medications. Prior: Teto is a very pleasant 68-year-old male who presents the office today accompanied by his for evaluation management his lower back. Patient endorses some left lower back pain but states pain is in the right thigh. Denies trauma, injury, fall. Pain today is 1/10, 5/10 when at its worst. Endorses radiation of the pain down to the right calf with some cramping of the thigh muscle Pain is worse with walking, standing, sitting. Pain increase with coughing. Improves with rest. Endorses discomfort in both legs and fatigue with walking. This is improved with rest. He does endorse improvement in the symptoms with slight forward flexion while walking. He has been ruled out by vascular for vascular claudication symptoms. Patient has tried nonsteroidal anti-inflammatory medication without improvement in his pain. He is currently taking Tylenol with minimal improvement Denies red flag symptoms including new loss of bowel, bladder or saddle anesthesia. In terms of muscle damage condition is described as sharp, stabbing, tiring, spreading, dull, sore, hurting, aching, pulsing, throbbing, pinching, cramping Pain is negatively impacting patient's general activity, enjoyment of life, recreational activities, walking Denies current use of anticoagulants Denies implantable devices, pacemaker or defibrillator [facility] Medical History COPD (chronic obstructive pulmonary disease) Smoker HTN (hypertension) Thrombocytopenia Hyperlipidemia Cataract Testicular cancer Lymphoma Surgical History History of left-sided carotid endarterectomy Hx of cataract extraction Hx of hand surgery Hx of bilateral orchiectomies History of carotid endarterectomy (~09/16/17) Social History Household Members: Family Are you a primary rn palliative care to a significant other at home: No Do you presently have visiting nurse or other home services: No Alcohol intake: never Patient Tobacco Use Status: Current everyday Tobacco user Tobacco use type: Cigarette Cigarettes Per Day: 5 Years Smoked: 46 service: No Current occupational status: retired Review of Systems Const All systems reviewed & are unremarkable except as noted in HPI and below Physical Exam Vital signs and physical exam deferred, telephone visit only Telehealth Telehealth Telehealth Platform: Telephone Location of provider rendering services: practice address Location of patient: address on file Patient Identification confirmed using: Name, : Yes Telehealth method: voice only Patient verbally consented to treatment: Yes Patient verbally consented to billing insurance company: Yes Patient informed of any privacy concerns related to visit: Yes Minutes spent on Phone/Video with Pt.: 11 Results Reviewed Results Reviewed: 03/13/24 MR/MR lumbar spine wo con IMPRESSION: * Severe leftward convex curvature of the lumbar spine superimposed on advanced multilevel degenerative disc disease and hypertrophic facet arthropathy: * At L4-L5, multifactorial degenerative changes result in severe left subarticular zone stenosis with compression of the traversing left L5 nerve root and severe left foraminal stenosis with compression of the exiting left L4 nerve root. * At L3-L4, multifactorial degenerative changes result in moderate to severe central canal stenosis, severe bilateral subarticular zone stenosis with compression of the traversing L4 nerve roots bilaterally, and moderate bilateral foraminal stenosis with mass effect on the extraforaminal L3 nerve roots bilaterally. Modic type I endplate signal changes at this level. * At L2-L3, multifactorial degenerative changes result in right subarticular zone stenosis with mass effect on the traversing right L3 nerve root and moderate right-sided foraminal stenosis with mass effect on the extraforaminal right L2 nerve root. * At L1-L2, a right paracentral/right lateral disc osteophyte protrusion results in mass effect on the traversing right L2 nerve root within the right subarticular zone and moderate right-sided foraminal stenosis with mass effect on the extraforaminal right L1 nerve root. * A synovial cyst projects anteriorly from the severely degenerative left T11-T12 facet joint, encroaching upon the left subarticular zone. There is inflammatory change within the right T11-T12 neural foramen which is moderately stenotic. Assessment & Plan Assessment & Plan (1) Spinal stenosis: Code(s): M48.00 - Spinal stenosis, site unspecified Category: Medical (2) Myofascial low back pain: Code(s): M54.50 - Low back pain, unspecified Category: Medical Plan MRI reviewed, results as per above Referral placed for neuro spine for evaluation management Methocarbamol dose increased to 750 mg p.o. t.i.d. as needed. patient advised on cautions for use. All questions and concerns were answered, patient agrees with the plan. Follow up after neurosurgical evaluation, sooner if needed Orders: Referrals Neuro Spine Referral M48.00 - Spinal stenosis, site unspecified Medications: New methocarbamol 750 mg PO TID 90 tabs 3RF Discontinued methocarbamol No driving while taking this medication. 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
== END 2024-04-02 15:25 | disposition home or self-care (01) ==
LOC: HO.PMC 15:12
PROVIDERS: PCP Internal Medicine; Visit Provider Registered Nurse Emergency
DX: M48.00 Spinal stenosis, site unspecified (principal); M54.50 Low back pain, unspecified
CPT/HCPCS: 99213; G2211

== ENCOUNTER → 2024-04-02 15:11 | Outpatient (BNVA) | payer OTHER, SELFPAY | PROVIDERS: PCP Internal Medicine; Visit Provider Registered Nurse Emergency ==

== ENCOUNTER 2024-04-06 14:02 | Outpatient (AMB) | payer OTHER, SELFPAY ==
--- NOTE | 2024-04-06 13:17 | MHC.OFFVIS ---
Intake Visit Reasons: PSA/Testosterone Follow Up(Set) Allergies bee pollen [bee stings] Allergy (Intermediate, Verified 01/29/24 14:02) Swelling Medication List - Last Reconciled 04/06/24 by Nahid Soriano MD aspirin 81 mg PO DAILY atorvastatin 40 mg PO BEDTIME folic acid 1 mg PO DAILY losartan 50 mg PO DAILY methocarbamol 750 mg PO TID metoprolol tartrate 25 mg PO BID testosterone 3 pumps topical DAILY 30 days HPI Comments Details: Teto is a pleasant male. He is a patient of Dr. Latif. He is seen for the following urologic conditions. 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 No longer tested for seminoma Testosterone - 01/07 577, 01/08 389, 01/09 785 0.8 39, 08/12 544 0,5, 02/09 P 0.6 T 589, 08/13 670, 04/13 650 1.1 35 Associated erectile dysfunction responsive to tadalafil - using on demand 20 mg PSA 01/07 1.0 Therapeutic plan - continue testosterone supplementation PFSH Medical History COPD (chronic obstructive pulmonary disease) Smoker HTN (hypertension) Thrombocytopenia Hyperlipidemia Cataract Testicular cancer Lymphoma Surgical History History of left-sided carotid endarterectomy Hx of cataract extraction Hx of hand surgery Hx of bilateral orchiectomies History of carotid endarterectomy (~09/16/17) Social History Household Members: Family Are you a primary critical care educator to a significant other at home: No Do you presently have visiting nurse or other home services: No Alcohol intake: never Patient Tobacco Use Status: Current everyday Tobacco user Tobacco use type: Cigarette Cigarettes Per Day: 5 Years Smoked: 46 service: No Current occupational status: retired Telehealth Telehealth Telehealth Platform: Doximity Location of provider rendering services: practice address Location of patient: address on file Patient Identification confirmed using: Name, : Yes Telehealth method: video Patient verbally consented to treatment: Yes Patient verbally consented to billing insurance company: Yes Patient informed of any privacy concerns related to visit: Yes Minutes spent on Phone/Video with Pt.: 15 Assessment & Plan Assessment & Plan (1) Hypogonadism in male: Code(s): E29.1 - Testicular hypofunction Category: Medical (2) Erectile dysfunction due to arterial insufficiency: Code(s): N52.01 - Erectile dysfunction due to arterial insufficiency Category: Medical Plan Continue current medications Six-month follow-up Orders: Orders Testosterone, Total 6 Months E29.1 - Testicular hypofunction Complete Blood Count no Diff 6 Months E29.1 - Testicular hypofunction Prostate Specific Antigen 6 Months E29.1 - Testicular hypofunction Medications: Refilled testosterone apply 3 pumps total between EACH upper arm and shoulder 3 pumps topical DAILY 150 grams 2RF 30 days E29.1 - Testicular hypofunction Patient Instructions: Imaging studies, laboratory and physical exam results were discussed and reviewed in detail. No major barriers to patient understanding were identified. An opportunity to ask questions regarding the treatment plan was provided. All questions were answered. The patient expressed understanding and agreement with the above treatment plan. The patient is aware they should contact our office by phone for worsening of their current condition or the appearance of new urologic symptoms. Compliance is encouraged with any medications and followup testing that is ordered. It is a privilege to participate in the urologic care of your patient. If you have any questions or concerns regarding treatment for the above conditions, or other urologic issues, please do not hesitate to contact me. The office telephone contact is [phone]. This note is constructed using voice recognition software. While every effort has been made to ensure accuracy customer counter associate errors may have been included. Yours sincerely, Dr Nahid Soriano MD, [facility] - Urology Providers of Expert, Compassionate Care for the Genitourinary System Coding Level of Care Code Tele Est Pt Level 3 (70239) Diagnoses Hypogonadism in male E29.1 Erectile dysfunction due to arterial insufficiency N52.01
== END 2024-04-06 14:46 | disposition home or self-care (01) ==
LOC: HO.HUSH 14:02
PROVIDERS: PCP Internal Medicine; Visit Provider Urology
DX: E29.1 Testicular hypofunction (principal); N52.01 Erectile dysfunction due to arterial insufficiency
CPT/HCPCS: 99213

== ENCOUNTER → 2024-04-06 14:02 | Outpatient (BNVA) | payer OTHER, SELFPAY | PROVIDERS: PCP Internal Medicine; Visit Provider Urology | DX: E29.1 Testicular hypofunction (principal); N52.01 Erectile dysfunction due to arterial insufficiency ==

== ENCOUNTER 2024-04-09 09:18 | Outpatient (AMB) | payer OTHER, SELFPAY ==
--- NOTE | 2024-04-09 09:34 | A.SPINEOV_ITS ---
Intake Visit Reasons: left side lower back pain Intake Note: Mr. Soto is here today c/o pain in the legs,hips, and back. 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 He is a very nice 68 year old gentleman who has had for the last year or more progressively worsening symptoms of pain going down into his right hamstring with numbness of his right knee when he is standing and walking. He also has a left-sided low back pain as well which does not radiate down into his left leg and seems to hover over the left SI joint region. This is also aggravated when he is standing walking. He does not report any centralized low back pain. When he is sitting or lying down he has no pain at all. He has been managing this primarily with methocarbamol and Tylenol. If he takes these together he seems to be able to get more mobility but in the end he can not walk for more than maybe 50 ft before he has to sit down because of the pain. He has not yet done any conservative treatment. He can not do activities he enjoys like taking walks, going to the grocery store or golfing. He is very frustrated with his quality of life. He comes in today with the MRI showing advanced scoliotic curvature with lumbar stenosis. PMH: He has been a lifelong smoker, has had bilateral carotid endarterectomy so, reports no COPD, he has no shortness of breath and is not on any inhalers. History of hypertension. He had testicular cancer when he was in his early 30s and this required 2 surgeries as well as radiation to his abdomen. 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 He had cataract surgery done. Denies any trouble with his heart, liver, blood clot ting, bleeding disorders. He tells me they are watching his kidney function as his creatinine is slightly high. Social hx: He still smokes a half pack a day and he smokes marijuana joints most days of the week. He does not drink any significant alcohol. Medications: Aspirin, Lipitor, folic acid, metoprolol, testosterone Allergies: None Physical exam: She is awake alert oriented no acute distress, intact motor exam of the lower extremities, absent reflexes bilateral in the lower extremities. Imaging review: He has a lumbar MRI done at [facility] showing levoscoliosis extending from L2-L5 with advanced degenerative changes and multiple areas of osteophyte overgrowth. There is narrowing of the right L3 foramen and the right L2 foramen. There is moderate to severe central canal stenosis at L3-4. There are varying degrees of foraminal stenosis on the left as well. There are multiple other areas of overgrowth and degenerative changes. Impression: 68-year-old gentleman presents with a left-sided low back pain in a right buttock pain that goes down to his posterior hamstring and also has pain wrapping around to his right knee with numbness. His imaging obviously supports the diagnosis of lumbar radiculopathy likely coming from his combination of scoliotic curvature, degenerative changes as well as central and foraminal stenosis. I suspect the L3-4 is the culprit given it is the worst in terms of central stenosis and he has foraminal stenosis at this level as well. Before we could consider any surgical opinion on this matter, Dr. Garces typically would like standing x-rays, scoliosis survey and a CT scan to see if the patient's bone quality is good enough for fusion surgery and to assess any areas of auto fusion. We did briefly discuss scoliosis correction, but I told him that this is something we would need to get in more detail with after we have the appropriate imaging. He is getting to a point though with his quality of life that this is suffering and he does not feel he has many meaningful activities he can participate in at all. We also discussed that he could try injections if your office thought it reasonable just to help him in the interim feel better and maybe be a bit more functional. I do not think physical therapy is going to solve the issues with his stenosis of the scoliosis but obviously he could try that if he wanted to. I will see him back once the CT scan the x-rays are completed and review everything with Dr. Garces. Thank you for allowing us to care for your patient. The total time spent with this visit with this patient was 65 minutes reviewing history, physical exam, lumbar imaging review, and implementation of treatment plan or further diagnostic testing Jeremy Garces MD,PhD [facility] Orders: Orders XR lumbar spine 4V min Today M41.20 - Other idiopathic scoliosis, site unspecified XR scoliosis survey Today M41.20 - Other idiopathic scoliosis, site unspecified CT lumbar spine wo IV con Today M41.20 - Other idiopathic scoliosis, site unspecified Coding Level of Care Code New Pt Level 5 (07685) Diagnoses Scoliosis (and kyphoscoliosis), idiopathic M41.20
== END 2024-04-09 10:21 | disposition home or self-care (01) ==
PROVIDERS: PCP Internal Medicine; Referring Provider Registered Nurse Emergency; Visit Provider Physician Assistant
DX: M41.06 Infantile idiopathic scoliosis, lumbar region (principal)
CPT/HCPCS: 99204

== ENCOUNTER 2024-04-09 09:18 | Outpatient (REF) | payer OTHER, SELFPAY | END 2024-04-09 09:19 | disposition home or self-care (01) | LOC: HO.HOSX 09:18 | PROVIDERS: PCP Internal Medicine; Visit Provider Physician Assistant | DX: Z13.89 Encounter for screening for other disorder (principal) ==

== ENCOUNTER 2024-05-28 07:31 | Outpatient (REF) | payer OTHER, SELFPAY | END 2024-05-28 07:32 | disposition home or self-care (01) | LOC: HO.CT 07:31 | PROVIDERS: PCP Internal Medicine; Visit Provider Physician Assistant | DX: M41.20 Other idiopathic scoliosis, site unspecified (principal) | CPT/HCPCS: 72082; 72110; 72131 ==

== ENCOUNTER 2024-06-04 14:28 | Outpatient (AMB) | payer OTHER, SELFPAY ==
--- NOTE | 2024-06-04 14:38 | A.SPINEOV_ITS ---
Intake Visit Reasons: follow up with in office Intake Note: Mr. Soto is here today for a F/u. 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 Please see my previous note for the specifics of his problem, but he has been having a severe radiculopathy going down into his anterior thigh now for quite some time. He has severe stenosis at L3-4, lateral recess stenosis at L2-3. I did scoliosis series x-rays and a CT scan on him to evaluate for surgical options. I reviewed all his imaging with Dr. Garces. He has a levoscoliosis through the segments of L2-3 and L3-4. Because of the significant shift laterally of L3 on L4 with standing, we think this is the source of his symptoms. He does not have a significant amount of back pain, however, just doing a simple decompression to relieve the leg pain would likely result in further destabilization of the segment. The L2-3 area is already fused on the CT scan. Therefore Dr. Graces is recommended he undergo an oblique lumbar interbody fusion to correct the lateral listhesis at L3-4 which should indirectly decompress the foramen and the central canal. We quoted 90% relief of his leg pain. He does understand that there may be some component of back pain after surgery because of the instrumentation. The pain has gotten so bad, that it is severely affecting his quality of life and he would like to move ahead with surgery. We have tentatively booked him for August 17. There is an upcoming epidural injection with your team, and we told him that he should move ahead with that if he wants to. We would just need 6 weeks in between the injection and the date of the surgery. He was also interested in talking with you about medications to try to take before surgery. We did warn him to try to avoid narcotics because it would desensitize him somewhat to the medications we would give him after surgery. Pt was given risk and benefits of surgery including but not limited to infection, hematoma , nerve injury,durotomy, weakness,bowel/bladder injury, persistent pain, hardware failure as well as the option to continue with conservative treatment and patient wishes to proceed with surgery. Pt is aware they should stop their motrin, aspirin 7 days prior to surgery. All questions were answered to the best of our ability. If there is anything about this patients medical history that we have overlooked or concerns you have about us proceeding with surgery we would appreciate any input you can offer. Total amount of time spent in this visit was 20 minutes in discussion of symptoms, lumbar x-ray, CT and MRI done at [facility] imaging results and subsequent plan of care Jeremy Garces MD,PhD [facility] Coding Level of Care Code Est Pt Level 3 (30797) Diagnoses Scoliosis (and kyphoscoliosis), idiopathic M41.20
== END 2024-06-04 15:35 | disposition home or self-care (01) ==
PROVIDERS: PCP Internal Medicine; Visit Provider Physician Assistant
DX: M41.20 Other idiopathic scoliosis, site unspecified (principal)
CPT/HCPCS: 99213

== ENCOUNTER 2024-06-08 06:22 | Outpatient (REF) | payer OTHER, SELFPAY | END 2024-06-08 06:23 | disposition home or self-care (01) | LOC: CF 06:22 | PROVIDERS: Visit Provider Anesthesiology | DX: M48.00 Spinal stenosis, site unspecified (principal); M54.50 Low back pain, unspecified; M51.16 Intervertebral disc disorders with radiculopathy, lumbar region | CPT/HCPCS: 64483; J2003; J3301; Q9967 ==

== ENCOUNTER 2024-06-08 11:05 | Outpatient (AMB) | payer OTHER, SELFPAY ==
--- NOTE | 2024-06-08 11:16 | MHC.OFFVIS ---
Vital Signs 06/08/24 12:13 06/08/24 12:14 06/08/24 12:15 06/08/24 12:15 BP 198/106 H 192/78 H 202/90 H 160/80 H Blood Pressure Location Lt brachial Lt brachial Lt brachial Rt brachial Position Sitting Sitting Sitting Sitting Respiration 16 16 Pulse 93 92 Pulse Source Pulse Oximeter Pulse Oximeter Pulse Oximetry (%) 97 97 Oxygen Delivery Method Room Air Room Air Comment pre-op post-op Intake Visit Reasons: BILATERAL L3, L4 TFESI Allergies bee pollen [bee stings] Allergy (Intermediate, Verified 06/08/24 12:16) Swelling PFSH Medical History COPD (chronic obstructive pulmonary disease) Smoker HTN (hypertension) Thrombocytopenia Hyperlipidemia Cataract Testicular cancer Lymphoma Surgical History History of left-sided carotid endarterectomy Hx of cataract extraction Hx of hand surgery Hx of bilateral orchiectomies History of carotid endarterectomy (~09/16/17) Social History Household Members: Family Are you a primary childcare center director to a significant other at home: No Do you presently have visiting nurse or other home services: No Alcohol intake: never Patient Tobacco Use Status: Current everyday Tobacco user Tobacco use type: Cigarette Cigarettes Per Day: 5 Years Smoked: 46 service: No Current occupational status: retired Physical Exam Vital Signs: Last Vital Signs Pulse 92 06/08/24 12:15 Resp 16 06/08/24 12:15 BP 160/80 H 06/08/24 12:15 Pulse Ox 97 06/08/24 12:15 Oxygen Delivery Method Room Air 06/08/24 12:15 BMI result Body Mass Index 22.8 Assessment & Plan Assessment & Plan (1) Spinal stenosis: Code(s): M48.00 - Spinal stenosis, site unspecified Category: Medical (2) Myofascial low back pain: Code(s): M54.50 - Low back pain, unspecified Category: Medical (3) Radiculopathy due to lumbar intervertebral disc disorder: Code(s): M51.16 - Intervertebral disc disorders with radiculopathy, lumbar region Category: Medical Plan Bilateral L3-L4 Transforaminal epidural steroid injection Informed consent was thoroughly explained to the patient before the procedure. The risks and benefits were carefully explained to the patient. The patient is facing surgery at the end of the July, we have 10 weeks until that time to dissipate the effects of the administered today steroids. The patient came to the operating room. He was positioned prone on operating table with a pillow under her abdomen. Time-out was performed delineating correct site and side of the procedure, nature of the injection, name and date of of the patient. The lower back of the patient was prepped with ChloraPrep and draped with sterile utility towels. C-arm was brought over the operating field and sq picture of L3 vertebra was demonstrated on the screen. The right side was chosen as the initial side of the injection. Tilting machine ipsilateral to the left at the level of L3 the most prominent picture of the pedicle on the right was demonstrated on the screen. 3 mm below the most lowest point of the pedicle projection to the skin small amount of lidocaine 1% was injected to anesthetize the skin. After that 5 in 22 gauge Quincke point needle was inserted through the skin wheal and was advanced to were the L3-L4 foramina on anterior posterior, lateral and oblique views intermittently. When tip of the needle entered foramina projection on AP view sq image-the injection of the contrast live was performed demonstrating epidural and perineural spread of the contrast. After that injection of the treatment medicine 3 cc of preservative-free lidocaine 1% mixed with Kenalog 40 mg was injected into the foramina. No intrathecal and no intravascular spread of the contrast was noted. The needle was removed . After that the procedure was repeated on the left side in the mirroring fashion. The doses of the medications were the same. Again live injection was observed. No intrathecal no intravascular spread of the contrast was noted. Upon completion of the procedure needle was removed and sterile Band-Aid was applied. Patient tolerated the procedure well. Orders: Orders FL guidance in treatment room Today M48.00 - Spinal stenosis, site unspecified Coding Level of Care Code Procedure Only Diagnoses Spinal stenosis M48.00 Myofascial low back pain M54.50 Radiculopathy due to lumbar intervertebral disc disorder M51.16
[2024-06-08 12:13] VITALS: BP 198/106; PULSE 93; RESP 16; O2SAT 97
[2024-06-08 12:14] VITALS: BP 192/78
[2024-06-08 12:15] VITALS: BP 160/80; BP 202/90; PULSE 92; RESP 16; O2SAT 97
== END 2024-06-08 12:01 | disposition home or self-care (01) ==
LOC: HO.PMCPRC 11:05
PROVIDERS: PCP Internal Medicine; Visit Provider Anesthesiology
DX: M51.16 Intervertebral disc disorders with radiculopathy, lumbar region (principal); M48.00 Spinal stenosis, site unspecified; M54.50 Low back pain, unspecified
CPT/HCPCS: 64483

== ENCOUNTER 2024-07-05 13:47 | Outpatient (AMB) | payer OTHER, SELFPAY ==
--- NOTE | 2024-07-05 13:49 | A.OFFVIS_ITS ---
Vital Signs 07/05/24 13:50 Height 5 ft 11 in Weight 166 lb BMI 23.1 BP 179/79 H Blood Pressure Location Lt brachial Position Sitting Respiration 15 Pulse 67 Pulse Source Pulse Oximeter Pulse Oximetry (%) 99 Oxygen Delivery Method Room Air Intake Visit Reasons: BILATERAL L3, L4 TFESI Allergies bee pollen [bee stings] Allergy (Intermediate, Verified 07/05/24 13:52) Swelling Medication List - Last Reconciled 07/05/24 by Sejal Artis LPN aspirin 81 mg PO DAILY atorvastatin 40 mg PO BEDTIME folic acid 1 mg PO DAILY gabapentin 100 mg PO TID losartan 50 mg PO DAILY metoprolol tartrate 25 mg PO BID testosterone 3 pumps topical DAILY 30 days HPI Comments Details: Teto is back in my office after therapeutic bilateral L3-L4 transforaminal epidural steroid injection. He reports very good pain relief after the procedure. He reports increase mobility. He states that before the injection he was not able to walk more than 10 yd, however now he is able to walk stopping freely. He reports pain today as 2/10. He is awaiting procedure with Dr. Garces on the lumbar spine. The results of this injection maybe taken into the consideration with Dr. Garces' procedure. I explained to the patient that he we will be able to receive this injection once in 3 months or 4 times a year. If he decides not to go for the procedure and instead continue to the injections he needs to give us a call and schedule an appointment for follow-up injection but not earlier than 3 months from 05/1924. Prior: Teto is a very pleasant 68-year-old male who presents the office today accompanied by his for evaluation management his lower back. Patient endorses some left lower back pain but states pain is in the right thigh. Denies trauma, injury, fall. Pain today is 1/10, 5/10 when at its worst. Endorses radiation of the pain down to the right calf with some cramping of the thigh muscle Pain is worse with walking, standing, sitting. Pain increase with coughing. Improves with rest. Endorses discomfort in both legs and fatigue with walking. This is improved with rest. He does endorse improvement in the symptoms with slight forward flexion while walking. He has been ruled out by vascular for vascular claudication symptoms. Patient has tried nonsteroidal anti-inflammatory medication without improvement in his pain. He is currently taking Tylenol with minimal improvement Denies red flag symptoms including new loss of bowel, bladder or saddle anesthesia. In terms of muscle damage condition is described as sharp, stabbing, tiring, spreading, dull, sore, hurting, aching, pulsing, throbbing, pinching, cramping Pain is negatively impacting patient's general activity, enjoyment of life, recreational activities, walking Denies current use of anticoagulants Denies implantable devices, pacemaker or defibrillator [facility] Medical History COPD (chronic obstructive pulmonary disease) Smoker HTN (hypertension) Thrombocytopenia Hyperlipidemia Cataract Testicular cancer Lymphoma Surgical History History of left-sided carotid endarterectomy Hx of cataract extraction Hx of hand surgery Hx of bilateral orchiectomies History of carotid endarterectomy (~09/16/17) Social History Household Members: Family Are you a primary ambulatory care nurse to a significant other at home: No Do you presently have visiting nurse or other home services: No Alcohol intake: never Patient Tobacco Use Status: Current everyday Tobacco user Tobacco use type: Cigarette Cigarettes Per Day: 5 Years Smoked: 44 service: No Current occupational status: retired Review of Systems Const All systems reviewed & are unremarkable except as noted in HPI and below Physical Exam Vital Signs: Last Vital Signs Pulse 67 07/05/24 13:50 Resp 15 07/05/24 13:50 BP 179/79 H 07/05/24 13:50 Pulse Ox 99 07/05/24 13:50 Oxygen Delivery Method Room Air 07/05/24 13:50 BMI result Body Mass Index 23.1 General: awake, alert, oriented. Answers questions appropriately. Fully engaged in examination. Skin: warm, dry, intact HEENT: Normocephalic. Hearing intact. Cardiac: External chest normal in appearance. Respiratory: No cough, audible wheezing or stridor. Abdomen: without gross distension. MS: No obvious swelling or deformities. Able to stand on bilateral tiptoes and bilateral heels.? Able to transition from sit to stand unassisted. Ambulates with bilaterally normal heel strike and toe off Bilateral lower extremity strength 5/5 Negative footdrop Negative clonus SLR negative bilaterally Facet loading negative Nontender over PSIS Valsalva positive Full lumbar range of motion Neurological: Oriented to person, place, time and situation. Thought process intact. No gait abnormalities appreciated. Psychiatric: Appropriate mood and affect. Good judgment and insight. Assessment & Plan Assessment & Plan (1) Spinal stenosis: Code(s): M48.00 - Spinal stenosis, site unspecified Category: Medical (2) Myofascial low back pain: Code(s): M54.50 - Low back pain, unspecified Category: Medical (3) Radiculopathy due to lumbar intervertebral disc disorder: Code(s): M51.16 - Intervertebral disc disorders with radiculopathy, lumbar region Category: Medical Plan Teto is scheduled for surgery on his lumbar spine with Dr. Garces. He received on 06/08/24 transforaminal epidural steroid injection L3-L4 bilateral is very good results decrease of the pain to 2/10 and improvement of the mobility and activities of daily living. If he by any chance would not go for surgery he is recommended to give us a call and schedule an appointment with another injection L3-L4 transforaminal bilateral. We can perform this procedure once in 3 months. Coding Level of Care Code Est Pt Level 3 (33121) Diagnoses Spinal stenosis M48.00 Myofascial low back pain M54.50 Radiculopathy due to lumbar intervertebral disc disorder M51.16
[2024-07-05 13:50] VITALS: BP 179/79; PULSE 67; RESP 15; O2SAT 99; BMI 23.1
== END 2024-07-05 13:59 | disposition home or self-care (01) ==
PROVIDERS: PCP Internal Medicine; Visit Provider Anesthesiology
DX: M48.00 Spinal stenosis, site unspecified (principal); M54.50 Low back pain, unspecified; M51.16 Intervertebral disc disorders with radiculopathy, lumbar region
CPT/HCPCS: 99213

== ENCOUNTER 2024-07-29 13:50 | Outpatient (REF) | payer OTHER, SELFPAY ==
--- NOTE | ~2024-07-29 | US_ITS ---
CLINICAL HISTORY: I65.23 - Occlusion and stenosis of bilateral carotid arteries US Bilateral Carotid Duplex Comparison: None Findings: Mild plaque within the carotid bulbs. Color doppler and spectral tracings normal. Peak systolic velocities: Right CCA: 107 cm/s. Right ICA: 105 cm/s. ICA/CCA ratio: Normal Right ECA: 108 Right vertebral artery flow antegrade. Left CCA: 97 cm/s. Left ICA: 120 cm/s. ICA/CCA ratio: Normal. Left ECA: Unremarkable. Left vertebral artery flow antegrade. IMPRESSION: Mild atherosclerotic disease without significant stenosis (0-49% stenosis). This document has been electronically signed by: Ty Grace MD on 08/02/2024 13:03:22
== END 2024-07-29 13:51 | disposition home or self-care (01) ==
LOC: HO.US 13:50
PROVIDERS: PCP Internal Medicine; Visit Provider Surgery Vascular Surgery
DX: I65.23 Occlusion and stenosis of bilateral carotid arteries (principal)
CPT/HCPCS: 93880

== ENCOUNTER → 2024-07-29 13:51 | Outpatient (BNV) | payer OTHER, SELFPAY | PROVIDERS: PCP Internal Medicine; Visit Provider Radiology Vascular & Interventional Radiology | DX: I65.23 Occlusion and stenosis of bilateral carotid arteries (principal) | CPT/HCPCS: 93880 ==

== ENCOUNTER 2024-08-05 15:09 | Outpatient (AMB) | payer OTHER, SELFPAY ==
--- NOTE | 2024-08-05 15:13 | A.OFFVIS_ITS ---
Vital Signs 08/05/24 15:14 Height 5 ft 11 in Weight 166 lb BMI 23.1 Intake Visit Reasons: 1 yr follow up carotid US 08/02/24 Intake Note: 1 yr follow up carotid US 08/02/24 w/ hx of 09/16/17 R CEA & 09/16/22 Left CEA Accompanied by: Self / Same As Patient Allergies bee pollen [bee stings] Allergy (Intermediate, Verified 08/05/24 15:18) Swelling HPI HPI 1 yr follow up carotid US 08/02/24: Details: Teto is presenting today for a follow up to carotid ultrasound, performed on 07/29/2024. He is status post bilateral carotid endarterectomies, in 2017 and in 2022. He is also going to be going to a spinal cage surgery for L3 and L4 with Dr. Garces on Friday. The patient denies any complaints of any stroke-like symptoms, dizziness, lightheadedness, or headaches. He states he is feeling very good, just a little nervous about the surgery on Friday. He does continue to smoke approximately half a pack of cigarettes a day. [facility] Medical History Aortic stenosis COPD (chronic obstructive pulmonary disease) Smoker HTN (hypertension) Thrombocytopenia Hyperlipidemia Testicular cancer Lymphoma Surgical History History of left-sided carotid endarterectomy Hx of cataract extraction Hx of hand surgery Hx of bilateral orchiectomies History of carotid endarterectomy (~09/16/17) Social History Household Members: Family Housing Other:: duplex home Are you a primary child day care center worker to a significant other at home: No Do you presently have visiting nurse or other home services: No Alcohol intake: never Patient Tobacco Use Status: Current everyday Tobacco user Tobacco use type: Cigarette Cigarettes Per Day: 10 Years Smoked: 46 service: No Current occupational status: retired Review of Systems Const Reports as per HPI and Denies weakness ENT Reports Normal hearing present and Denies dizziness Card Reports as per HPI, Denies chest pain, Denies chest pain at rest, Denies chest pain with activity, Denies dyspnea and Denies dyspnea on exertion Resp Reports as per HPI, Denies cough, Denies dyspnea and Denies dyspnea on exertion GI Reports as per HPI, Denies abdominal pain, Denies nausea and Denies vomiting Musc Denies numbness Skin/Breast Reports as per HPI, Denies erythema and Denies wounds Neuro Reports Normal hearing present, Denies dizziness, Denies numbness, Denies Sensory deficit (Neuro) and Denies weakness Psych Reports no additional complaints Endo Reports no additional complaints Physical Exam Vital Signs: BMI result Body Mass Index 23.1 Const General: healthy appearing and no acute distress Orientation/consciousness: patient oriented x3 HEENT Head: Yes normal to inspection Ears: hearing grossly normal bilaterally Mouth: Normal oral and palatal mucosa present Resp Effort & Inspection: normal respiratory effort and able to speak in complete sentences Auscultation: clear to auscultation bilaterally Cardio Jugular venous distension: no JVD Rate: regular rate Rhythm: regular rhythm Heart sounds: S1 normal heart sound present and S2 normal heart sound present Bruits: no abdominal aortic bruits, no carotid bruits, no femoral bruits and no renal bruits Peripheral pulses: Peripheral pulses 2+ throughout GI Inspection: Yes normal to inspection Palpation (GI): No Abdominal aortic bruit present Skin General skin exam: no rashes or lesions noted Wounds: no wounds Hair: normal Neuro General: patient oriented x3 Cranial nerves: Yes Normal hearing present Cognition (Neuro): normal cognition Gait exam (Neuro): Normal gait present Motor exam (neuro): 5/5 motor strength present throughout Sensory Exam: No Sensory deficit (Neuro) Extrem General: Yes normal to inspection, Yes full ROM, Yes capillary refill normal and Yes normal gait Results Reviewed Results Reviewed: Bilateral ultrasound carotid duplex: Findings: Mild plaque within the carotid bulbs. Color doppler and spectral tracings normal. Peak systolic velocities: Right CCA: 107 cm/s. Right ICA: 105 cm/s. ICA/CCA ratio: Normal Right ECA: 108 Right vertebral artery flow antegrade. Left CCA: 97 cm/s. Left ICA: 120 cm/s. ICA/CCA ratio: Normal. Left ECA: Unremarkable. Left vertebral artery flow antegrade. IMPRESSION: Mild atherosclerotic disease without significant stenosis (0-49% stenosis). Assessment & Plan Assessment & Plan (1) Carotid stenosis, bilateral: Comment: 09/16/2017 right carotid endarterectomy 09/16/2022- left carotid endarterectomy Code(s): I65.23 - Occlusion and stenosis of bilateral carotid arteries Category: Medical Plan: Teto is presenting today on a follow up to a bilateral carotid duplex ultrasound, performed on 07/29/2024. He continues remained asymptomatic. He does continue to smoke approximately half pack of cigarettes a day. He is going in for L3-L4 spinal surgery for a spinal cage on Friday with Dr. Garces. The ultrasound revealed mild arthrosclerotic disease without significant stenosis. At this point we will have him follow up with us in about 10 months for a follow up ultrasound and appointment. We discussed that in the meantime, if he has any symptoms, to reach out to us sooner. We discussed the importance of smoking cessation and physical activity. He states he is hoping after recovery from the surgery he will be able to do more physical activity. If there are any questions or concerns, please do not hesitate to reach out to us. Coding Level of Care Code Est Pt Level 4 (04003) Diagnoses Carotid stenosis, bilateral I65.23 Comment Review of carotid duplex ultrasound
[2024-08-05 15:14] VITALS: BMI 23.1
== END 2024-08-05 15:31 | disposition home or self-care (01) ==
PROVIDERS: PCP Internal Medicine; Visit Provider Physician Assistant Surgical
DX: I65.23 Occlusion and stenosis of bilateral carotid arteries (principal)
CPT/HCPCS: 99214

== ENCOUNTER 2024-09-24 12:40 | Outpatient (REF) | payer OTHER, SELFPAY ==
[2024-09-24 14:09] LABS: Hematocrit 35.2 % (42.0-52.0); Hemoglobin 11.8 g/dl (14.0-18.0); Mean Corpuscular HGB Conc 33.5 g/dl (31.0-36.0); Mean Corpuscular Hemoglobin 33.9 pg (27.0-33.0); Mean Corpuscular Volume 101.1 fL (80.0-98.0); Mean Platelet Volume 11.9 fL (9.4-12.4); Red Blood Count 3.48 X10*6/uL (4.60-5.80); Red Cell Distribution Width 13.5 % (11.0-16.0); White Blood Count 5.5 X10*3/uL (4.8-10.8)
[2024-09-24 14:11] LABS: Platelet Count 56 X10*3/uL (160-400)
--- OUTSIDE RECORDS SUMMARY | 2024-09-24 14:13 | XMS_ITS | Encounter Summary ---
Author Organization [place] [address] Care Team Providers Care Literary Agent Name Role Phone Shanique Blount MD Primary Care Provider [phone] Reason for Visit * Reason Onset Date Comments Medical Records 07/30/2024 Encounter Details Date Type Department Care Team (Late st Contact Info) Description 07/30/2024 Telephone [facility] [place] [facility] [address] [place] [address] Provider, Not In System Medical Records Social History Tobacco Use Types Packs/Day Years Used Date Smoking Tobacco: Every Day Cigarettes Smokeless Tobacco: Never Alcohol Use Standard Drinks/Week Comments Not Currently 0 (1 standard drink = 0.6 oz pur e alcohol) Sex and Gender Information Value Date Recorded Sex Assigned at Not on file Legal Sex Male 10:29 AM EST Gender Identity Not on file Sexual Orientation Not on file documented as of this encounter Progress Notes * Dinorah Ramirez - 08/25/2024 4:31 PM EST Faxed recent echo report and EKG to [facility] Stay Att: Krissy at [phone] on 07/30/2024 documented in this encounter Plan of Treatment Upcoming Encounters Date Type Department Care Team (Late st Contact Info) Description 11/19/2024 2:45 PM EDT Office Visit [facility] Hematology Oncology [address] [place] [id number] Ev Grullon MD [address] [place] [address] documented as of this encounter Visit Diagnoses Not on filedocumented in this encounter Care Teams Literary Agent Relationship Specialty Start Date End Date Shanique Blount MD [address] [place] [id number] PCP - General 12/22/23 08/01/24 documented as of this encounter
--- OUTSIDE RECORDS SUMMARY | 2024-09-24 14:13 | XMS_ITS | Clinical Summary ---
Author Organization [facility] [place] [address] Care Team Providers Care Vice President Payment Name Role Phone Unavailable Primary Care Provider Unavailabl e Allergies No known active allergies Medications amLODIPine (NORVASC) 10 mg tablet Take 1 tablet (10 mg total) by mouth 1 (one) time each day. Active aspirin 81 mg EC tablet Take 1 tablet (81 mg total) by mouth 1 (one) time each day. Active folic acid (FOLVITE) 1 mg tablet Take 1 tablet (1 mg total) by mouth 1 (one) time each day. Active atorvastatin (LIPITOR) 40 mg tablet Take 1 tablet (40 mg total) by mouth 1 (one) time each day. Active metoprolol succinate (TOPROL-XL) 25 mg 24 hr tablet Take by mouth daily. Active testosterone 1.62 % (20.25 mg/1.25 gram) gel in packet Place onto the skin. Active losartan (COZAAR) 100 mg tablet TAKE ONE TABLET BY MOUTH ONCE DAILY 90 tablet 1 08/02/2024 Active Active Problems Problem Noted Date Diagnosed Date Testosterone deficiency 11/14/2023 Weight loss 11/14/2023 Low folate 08/10/2020 Essential hypertension 10/20/2017 Thrombocytopenia 10/20/2017 Encounters Date Type Department Care Team Description 07/30/2024 Telephone [facility] [address] [place] [address] Provider, Not In System Medical Records from Last 3 Months Surgical History Surgery Date Site/Laterality Comments OTHER SURGICAL HISTORY PROCEDURE: IN LAPAROSCOPY SURGICAL ORCHIECTOMY; COMMENT: bilateral, 1980s HAND SURGERY 2014 PROCEDURE: HISTORICAL HAND SURGERY; COMMENT: left hand, s/p trauma, tendon repair TONSILLECTOMY PROCEDURE: HISTORICAL TONSILLECTOMY; COMMENT: & Adenoidectomy CATARACT EXTRACTION PROCEDURE: HISTORICAL CATARACT REMOVAL CAROTID ENDARTERECTOMY Right PROCEDURE: HISTORICAL CAROTID ENDART Medical History Medical History Date Comments History of lymphoma 08/07/2017 DX:History o f lymphoma; COMMENT: 1990, 4 rounds of chemo History of testicular cancer 08/07/2017 DX: History of testicular cancer; COMMENT: Surgery f/b radiation BPH (benign prostatic hyperplasia) 08/25/2017 DX:BPH (benign prostatic hyperplasia) Hypogonadism, male 08/25/2017 DX:Hypogonadi sm, male; COMMENT: Secondary to removal of testes or seminoma, bilaterally. Anxiety state DX:Anxiety state Hyperlipidemia DX:Hyperlipidemi a Essential hypertension DX:Essent ial hypertension COPD (chronic obstructive pu lmonary disease) ([facility]) 09/16/2023 DX:COPD (chronic obstructive pulmonary disease) ([facility]) Coronary artery calcificatio n seen on CAT scan 04/26/2024 DX:Coronary artery calcifica tion seen on CAT scan Family History Medical History Relation Name Comments No Known Problems Daughter Cataracts Father pancreatic canc er Alcohol abuse Mother ?diabetes Diabetes Mother No Known Problems Sister 1 No Known Problems Sister 2 Relation Name Status Comments Daughter Alive Father Mother Sister 1 Alive Sister 2 Alive Social History Tobacco Use Types Packs/Day Years Used Date Smoking Tobacco: Every Day Cigarettes Smokeless Tobacco: Never Alcohol Use Standard Drinks/Week Comments Not Currently 0 (1 standard drink = 0.6 oz pur e alcohol) Sex and Gender Information Value Date Recorded Sex Assigned at Not on file Legal Sex Male 10:29 AM EST Gender Identity Not on file Sexual Orientation Not on file Obstetrics History Last Filed Vital Signs Vital Sign Reading Time Taken Comments Blood Pressure 140/66 04/26/2024 1:27 PM EDT Sitting L Arm Pulse 65 04/26/2024 1:27 PM EDT Temperature - - Respiratory Rate - - Oxygen Saturation - - Inhaled Oxygen Concentration - - Weight 77.2 kg (170 lb 3.2 oz) 04/26/2024 1:27 PM EDT Height 180.3 cm (5' 11 ) 04/26/2024 1:2 7 PM EDT Body Mass Index 23.74 04/26/2024 1:27 PM EDT Plan of Treatment Upcoming Encounters Date Type Department Care Team (Late st Contact Info) Description 11/19/2024 2:45 PM EDT Office Visit [facility] Hematology Oncology [address] [place] [address] Ev Grullon MD [address] [place] [address] Health Maintenance Due Date Last Done Comments Hepatitis A Vaccines (1 of 2 - Risk 2-dose series) 1972 Zoster Vaccines (1 of 2) 11/17/2003 RSV Immunization Patients 60+ Years Old (1 - Risk 60-74 years 1-dose series) 2013 Cholesterol Screening (Lipid Panel) 06/29/2022 Colorectal Cancer Screening: Colonoscopy 06/29/2022 Depression Screening 06/29/2022 Falls Risk Assessment 06/29/2022 Hepatitis C Screening 06/29/2022 Social Influencers of Health Screening 06/29/2022 COVID-19 Vaccine ( season) 2024 08/15/2021, 11/28/2020, 10/31/2020 Influenza Vaccine (#1) 2024 Hypertension/CHF/CAD Annual BMP Blood Test 01/19/2025 01/20/2024, 12/22/2023 Lung Cancer Screening (Low Dose CT) 04/29/2025 04/29/2024, 04/28/2024, 02/10/2023, Additional history exists DTaP,Tdap,and Td Vaccines (3 - Td or Tdap) 09/16/2033 09/16/2023, 11/12/2021 Abdominal Aortic Aneurysm (AAA) Screen Completed 08/13/2021 Pneumococcal Vaccine: 50+ Years Completed 09/16/2023 HIB Vaccines Aged Out No longer eligi ble based on patient's age to complete this topic HPV Vaccines Aged Out No longer eligi ble based on patient's age to complete this topic Hepatitis B Vaccines Aged Out No long er eligible based on patient's age to complete this topic IPV Vaccines Aged Out No longer eligi ble based on patient's age to complete this topic MMR Vaccines Aged Out No longer eligi ble based on patient's age to complete this topic Meningococcal ACWY Vaccine Aged Out N o longer eligible based on patient's age to complete this topic Meningococcal B Vacine Aged Out No lo nger eligible based on patient's age to complete this topic RSV Immunization Patients Under 20 months Aged Out No longer eligible based on patient's age to complete this topic Varicella Vaccines Aged Out No longer eligible based on patient's age to complete this topic Procedures Procedure Name Priority Date/Time Associated Diagnosis Comments CT LUNG SCREENING LOW DOSE Routine 04/29/2024 11:18 AM EDT Nicotine dependence, unspecified, uncomplicated US ABDOMINAL AORTA REAL TIME SCREEN STUDY AAA Routine 08/13/2021 9:27 AM EST Nicotine dependence, unspecified, uncomplicated from Last 3 Months or Most Recently Relevant to Health Maintenance Results * CT LUNG SCREENING LOW DOSE (04/29/2024 11:18 AM EDT) Anatomical Region Laterality Modality Computed Tomogra phy 04/28/2024 4:58 PM EDT Narrative 04/29/2024 11:18 AM EDT [facility] Diagnostic Imaging Department [address] [place] [address] Patient: ??MILO CRENSHAW ?/Age/Sex: 1955 - 68 - M Unit#: ??[id number] ? Location/Status: ??SPDICATLS/REG CLI ? Mnemonic/Ordering Site: ??[facility]/SPCT Ordering Physician: ??RENNY LEDEZMA MD CT Lung Screening Low Dose - 04/28/24 - 1702 Report Status:Signed EXAMINATION: CT chest the lung screening low-dose. CLINICAL INDICATIONS: Current smoker. COMPARISON: CT lung screening 02/07/2023 and 01/29/2022. TECHNIQUE: 2.5 mm thin axial and reformatted 3 mm thin sagittal and coronal images of chest were obtained without contrast. Scanner: [employer] 64 slice VCT Dose reduction technique: ASIR (Adaptive statistical iterative reconstruction) and/or AEC (automated exposure control) Dose: total exam DLP 174 mGy/cm. FINDINGS: LUNGS: The lungs are well-expanded and clear acute pneumonic process. No pulmonary nodule, mass or consolidation seen. Mediastinum: Thyroid lobes are symmetric and normal. The central trachea and the bronchi are widely patent. Heart size and the great vessels are normal caliber. There is mild to moderate coronary artery calcifications. There is no pericardial effusion. Small shotty the distal lymph nodes seen. Pleura: No pleural effusion, thickening or calcification. Axilla: Unremarkable. Upper abdomen: There is punctate calcification in the spleen with mild splenomegaly. The liver has lobulated contour and slightly hypodense and scattered calcification. Osseous structures: No aggressive lytic or sclerotic process seen IMPRESSION: No suspicious pulmonary nodules visualized. Lung RADS: 1, benign. Recommendation: Low-dose annual CT screening. Dictating Physician: ??ROSANNA THAKKAR Electronically Signed by: ??ROSANNA THAKKAR Dic Date/Time: ??04/29/24 1110 Sign date/Time: ??04/29/24 1118 Procedure Note Rosanna Thakkar MD - 05/18/2024 [facility] Diagnostic Imaging Department [address] [place] [address] Patient: MILO CRENSHAW /Age/Sex: 1955 - 68 - M Unit#: [id number] Location/Status: SPDICATLS/REG CLI Mnemonic/Ordering Site: [facility] Ordering Physician: RENNY LEDEZMA MD CT Lung Screening Low Dose - 04/28/24 - 1702 Report Status:Signed EXAMINATION: CT chest the lung screening low-dose. CLINICAL INDICATIONS: Current smoker. COMPARISON: CT lung screening 02/07/2023 and 01/29/2022. TECHNIQUE: 2.5 mm thin axial and reformatted 3 mm thin sagittal andcoronal images of chest were obtained without contrast. Scanner: [employer] 64slice VCT Dose reduction technique: ASIR (Adaptive statistical iterativereconstruction) and/or AEC (automated exposure control) Dose: total exam DLP 174 mGy/cm. FINDINGS: LUNGS: The lungs are well-expanded and clear acute pneumonic process. No pulmonary nodule, mass or consolidation seen. Mediastinum: Thyroid lobes are symmetric and normal. The central tracheaand the bronchi are widely patent. Heart size and the great vessels arenormal caliber. There is mild to moderate coronary artery calcifications. Thereis no pericardial effusion. Small shotty the distal lymph nodes seen. Pleura: No pleural effusion, thickening or calcification. Axilla: Unremarkable. Upper abdomen: There is punctate calcification in the spleen with mild splenomegaly. The liver has lobulated contour and slightly hypodense and scattered calcification. Osseous structures: No aggressive lytic or sclerotic process seen IMPRESSION: No suspicious pulmonary nodules visualized. Lung RADS: 1, benign. Recommendation: Low-dose annual CT screening. Dictating Physician: ROSANNA THAKKAR Electronically Signed by: ARIANE,ROSANNA S Dic Date/Time: 04/29/24 1110 Sign date/Time: 04/29/24 1118 Renny Ledezma MD IMG CT PROCEDURES Final Result * US ABDOMINAL AORTA REAL TIME SCREEN STUDY AAA (08/13/2021 9:27 AM EST) Anatomical Region Laterality Modality Ultrasound 08/06/2021 11:3 6 AM EST Narrative 08/13/2021 9:31 AM EST Ultrasound of the abdominal aorta. History AAA screening. There is no abdominal aortic aneurysm. ??Proximal aorta measures 1.8 cm, mid aorta measures 1.7 cm, distal aorta measures 2 cm. ??Proximal right common iliac artery measures 0.8 cm. ??Proximal left common iliac artery measures 1.1 cm. CONCLUSIONS: No evidence of AAA. Procedure Note Harmony Jenkins MD - 08/25/2023 Ultrasound of the abdominal aorta. History AAA screening. There is no abdominal aortic aneurysm. Proximal aorta measures 1.8 cm,mid aorta measures 1.7 cm, distal aorta measures 2 cm. Proximal right common iliac arterymeasures 0.8 cm. Proximal left common iliac artery measures 1.1 cm. CONCLUSIONS: No evidence of AAA. Mahi Latif DO [facility] US PROCEDURES Edited Result - Final from Last 3 Months or Most Recently Relevant to Health Maintenance Insurance MEDICARE [facility] [place] [phone]
--- OUTSIDE RECORDS SUMMARY | 2024-09-24 14:13 | XMS_ITS | Clinical Summary ---
Author Organization [facility] Address [address] [place] [address] Care Team Providers Care Work Manager Name Role Phone Bhavya Mahi MONTGOMERY Primary Care Provider [phone] Allergies No known active allergies Medications Medication Sig Dispensed Refills Start Date End Date Status amLODIPine (NORVASC) tablet 10 mg Take 1 tablet (10 mg total) by mouth daily. 0 Active aspirin EC 81 MG tablet Take 1 tablet (81 mg total) by mouth daily. 0 Active atorvastatin (LIPITOR) tablet 40 mg Take 1 tablet (40 mg total) by mouth daily. 0 Active folic acid (FOLVITE) tablet 1 mg Take 1 tablet (1 mg total) by mouth daily. 0 Active metoprolol succinate (TOPROL-XL) 24 hr tablet 25 mg Take by mouth daily. 0 Active Testosterone 20.25 MG/1.25GM (1.62%) GEL Place onto the skin. 0 Active Active Problems Problem Noted Date Diagnosed Date Weight loss 11/14/2023 Testosterone deficiency 11/14/2023 Low folate 08/10/2020 Thrombocytopenia 10/20/2017 Essential hypertension 10/20/2017 History of testicular cancer 08/07/2017 Overview: Overview: Surgery f/b radiation History of lymphoma 08/07/2017 Overview: Overview: 1989, 4 rounds of chemo Social History Tobacco Use Types Packs/Day Years Used Date Smoking Tobacco: Never Assessed Sex and Gender Information Value Date Recorded Sex Assigned at Not on file Gender Identity Not on file Sexual Orientation Not on file Job Start Date Occupation Industry Not on file Not on file Not on file Last Filed Vital Signs Vital Sign Reading Time Taken Comments Blood Pressure 196/78 11/14/2023 9:04 AM EDT Pulse 65 11/14/2023 9:04 AM EDT Temperature 36.5 ??C (97.7 ??F) 11/14/2023 9:04 AM ED T Respiratory Rate - - Oxygen Saturation 97% 11/14/2023 9:04 AM EDT Inhaled Oxygen Concentration - - Weight 77.6 kg (171 lb) 11/14/2023 9:04 AM EDT Height - - Body Mass Index - - Plan of Treatment Health Maintenance Due Date Last Done Comments Hepatitis C Screening 1955 COVID-19 Vaccine (#1) 05/18/1954 Depression Screening 1965 Preventative Health Evaluation 11/17/1971 DTap / Tdap / Td (1 - Tdap) 1972 Colon Cancer Screening (Colonoscopy) 1998 Shingrix-Zoster Vaccine (1 of 2) 11/17/2003 Fall Risk Assessment 2018 Influenza Vaccine (#1) 2024 RSV Adult > 60+ Yrs or Pregn ant (1 - 1-dose 75+ series) 2028 Pneumococcal Vaccine Completed 09/16/2023 Hepatitis B Vaccines Aged Out No long er eligible based on patient's age to complete this topic RSV Ped < 20 months Aged Out No longe r eligible based on patient's age to complete this topic Care Teams Work Manager Relationship Specialty Start Date End Date Mahi Latif DO [address] [place] [id number] PCP - General Family Medicine 10/11/22
[2024-09-24 15:25] LABS: Prostate Specific Antigen 1.67 ng/mL (<0.05-4.0)
[2024-10-02 02:09] LABS: Testosterone, Total 461 ng/dL (250-1100)
== END 2024-09-24 12:41 | disposition home or self-care (01) ==
LOC: HO.LAB 12:40
PROVIDERS: Visit Provider Urology
DX: E29.1 Testicular hypofunction (principal); Z12.5 Encounter for screening for malignant neoplasm of prostate
CPT/HCPCS: 36415; 84153; 84403; 85027

== ENCOUNTER 2024-09-28 07:51 | Inpatient (IN) | payer OTHER, SELFPAY ==
[2024-08-02 10:24] VITALS: BP 165/78; PULSE 62; RESP 20; O2SAT 97; BMI 23.4
[2024-08-02 11:50] LABS: Hematocrit 35.8 % (42.0-52.0); Hemoglobin 12.2 g/dl (14.0-18.0); Mean Corpuscular HGB Conc 34.1 g/dl (31.0-36.0); Mean Corpuscular Hemoglobin 34.2 pg (27.0-33.0); Mean Corpuscular Volume 100.3 fL (80.0-98.0); Mean Platelet Volume 10.1 fL (9.4-12.4); Red Blood Count 3.57 X10*6/uL (4.60-5.80); Red Cell Distribution Width 14.2 % (11.0-16.0); White Blood Count 6.8 X10*3/uL (4.8-10.8)
[2024-08-02 12:03] LABS: Platelet Count 78 X10*3/uL (160-400)
[2024-08-02 12:32] LABS: Anion Gap 7 (12-20); Blood Urea Nitrogen 31 mg/dL (9-16); Calcium 9.4 mg/dL (8.4-10.2); Carbon Dioxide 29 mmol/L (22-29); Chloride 114 mmol/L (96-108); Creatinine Clr Calc Pharmacy 51.5; Estimated Glomerular Filt Rate 49; Glucose Random 106 mg/dL (60-115); Sodium 145 mmol/L (135-145)
[2024-09-28] VITALS (17 sets, daily range): BP systolic 109–177; BP diastolic 44–96; PULSE 61–83; RESP 10–18; TEMP 36.3–36.9; O2SAT 94–99
--- NOTE | ~2024-09-28 | FL_ITS ---
EXAMINATION: FL GUIDANCE ONLY HISTORY: L3-L4 OLIF COMPARISON: Correlation is made with a CT of the lumbar spine dated 05/28/2024. TECHNIQUE: Fluoroscopy time: 2 minutes. Cumulative Dose: 87.524 mGy. DAP: 28.02 mGym2 Images: 4. FINDINGS: Images demonstrate posterior fusion of L3 and L4 with pedicle screws, spinal stabilization rods, and an intervertebral spacer. FL/FL guidance in OR IMPRESSION: Fluoroscopy during procedure. Please see procedure report for additional information. Electronically signed by: Landon Albert MD 09/28/2024 12:49 PM EDT
--- OUTSIDE RECORDS SUMMARY | 2024-09-28 07:56 | XMS_ITS | Clinical Summary ---
Author Organization [facility] Address [address] [place] [address] Care Team Providers Care Basket Maker Name Role Phone Bhavya Mahi MONTGOMERY Primary Care Provider Allergies No known active allergies Medications Medication [...] age to complete this topic Care Teams Basket Maker Relationship Specialty Start Date End Date Mahi Latif DO [address] [place] [id number] PCP - General Family Medicine 10/11/22
--- OUTSIDE RECORDS SUMMARY | 2024-09-28 07:56 | XMS_ITS | Clinical Summary ---
Author Organization [facility] [place] [address] Care Team Providers Care Workers Compensation Examiner Name Role Phone Unavailable Primary Care Provider [...] Type Department Care Team Description 07/30/2024 Telephone [facility] [address] [place] [address] Provider, Not In System Medical Records from Last 3 Months Surgical History Surgery Date Site/Laterality Comments OTHER SURGICAL HISTORY PROCEDURE: DE LAPAROSCOPY SURGICAL ORCHIECTOMY; COMMENT: bilateral, 1980s HAND [...] hypertension COPD (chronic obstructive pu lmonary disease) ([facility]/HCC) 09/16/2023 DX:COPD (chronic obstructive pulmonary disease) ([facility]) Coronary artery calcificatio n seen on CAT [...] Description 11/19/2024 2:45 PM EDT Office Visit [facility] Hematology Oncology [address] [place] [address] Ev Grullon MD [address] [place] [address] Health Maintenance Due Date Last [...] 02/10/2023, Additional history exists DTaP,Tdap,and Td Vaccines (4 - Td or Tdap) 09/16/2033 09/16/2023, 11/12/2021, 03/26/2015 Abdominal Aortic Aneurysm (AAA) Screen Completed 08/13/2021 [...] PM EDT Narrative 04/29/2024 11:18 AM EDT [facility] Diagnostic Imaging Department [address] [place], [place] [id number] Patient: ??MILO CRENSHAW ?/Age/Sex: 1955 - 68 - M Unit#: ??[id number] ? Location/Status: ??SPDICATLS/REG CLI ? Mnemonic/Ordering Site: ??[facility]GL[facility]/SPCT Ordering Physician: ??RENNY LEDEZMA MD CT Lung Screening Low Dose - 04/28/24 - 1702 Report Status:Signed EXAMINATION: CT chest the lung screening low-dose. CLINICAL INDICATIONS: Current smoker. COMPARISON: CT lung screening 02/07/2023 and 01/29/2022. TECHNIQUE: 2.5 mm thin axial and reformatted 3 mm thin sagittal and coronal images of chest were obtained without contrast. Scanner: [employer] 64 slice VCT Dose reduction technique: ASIR [...] Procedure Note Rosanna Thakkar MD - 05/18/2024 [facility] Diagnostic Imaging Department [address] [place] [address] Patient: MILO CRENSHAW /Age/Sex: 1955 - 68 - M Unit#: [id number] Location/Status: SPDICATLS/REG CLI Mnemonic/Ordering Site: [facility] Ordering Physician: RENNY LEDEZMA MD CT Lung Screening Low Dose - 04/28/24 - 1702 Report Status:Signed EXAMINATION: CT chest the lung screening low-dose. CLINICAL INDICATIONS: Current smoker. COMPARISON: CT lung screening 02/07/2023 and 01/29/2022. TECHNIQUE: 2.5 mm thin axial and reformatted 3 mm thin sagittal andcoronal images of chest were obtained without contrast. Scanner: [employer] 64slice VCT Dose reduction technique: ASIR (Adaptive [...] Dictating Physician: ROSANNA THAKKAR Electronically Signed by: ROSANNA THAKKAR Dic Date/Time: 04/29/24 1110 Sign date/Time: 04/29/24 [...] No evidence of AAA. Mahi Latif DO [facility] US PROCEDURES Edited Result - Final from Last 3 Months or Most Recently Relevant to Health Maintenance Insurance [facility] [place] [phone]
[2024-09-28 08:15] LABS: Hematocrit 31.8 % (42.0-52.0); Hemoglobin 11.2 g/dl (14.0-18.0); Mean Corpuscular HGB Conc 35.2 g/dl (31.0-36.0); Mean Corpuscular Hemoglobin 34.9 pg (27.0-33.0); Mean Corpuscular Volume 99.1 fL (80.0-98.0); Mean Platelet Volume 11.5 fL (9.4-12.4); Red Blood Count 3.21 X10*6/uL (4.60-5.80); Red Cell Distribution Width 13.2 % (11.0-16.0); White Blood Count 4.4 X10*3/uL (4.8-10.8)
[2024-09-28 08:16] LABS: Platelet Count 52 X10*3/uL (160-400)
[2024-09-28] MEDS: Lactated Ringers 1,000 ML 100 ML IVCONT (08:45)
[2024-09-28] MEDS: methocarbamoL 750 MG TABLET PO ×2 (08:45→20:09)
[2024-09-28] MEDS: Gabapentin 300 MG CAPSULE PO (08:45)
--- NOTE | 2024-09-28 08:51 | MHC.SHP ---
Pre-Procedural Eval Section A - 24 Hr Update-Section A only Date of Service: 09/28/24 The patient is an INPATIENT: No Changes since office visit: No Cold of Flu in the past 2 weeks, No New Medical Problems, No Changes in Medication and No Patient answered all questions The patient has been examined within 24 hours of the surgical procedure. The History & Physical has been completed within 30 days and I have reviewed it.: No Section B - Complete if H&P > 30 days Chief Complaint: s/p L-3-4 OLIF Allergies: Allergies Allergy/AdvReac Type Severity Reaction Status Date / Time bee pollen [bee stings] Allergy Intermediate Swelling Verified 08/05/24 15:18 Review of Systems Sugical H&P ROS: Negative: Constitution, Cardiovascular, Respiratory, Neurological, Psychiatric, Hem-Onc, Allergic/Immunologic, Gastrointestinal, Genitourinary, Musculoskeletal, Integumentary, Endocrine and Eyes/Ears/Nose/Throat Exam Surgical H&P Exam: Normal: HEENT, Normal: Heart, Normal: Lungs, Normal: Extremities, Normal: Abdomen, Normal: Skin and Normal: Neurological (awake, alert,oriented x 3 ) Plan Diagnosis/Plan: Unchanged L3-4 oblique lumbar interbody fusion Time Spent With Patient Time: Total time managing care of this patient today _5___ minutes.
--- NOTE | 2024-09-28 09:15 | P.CONAN_ITS ---
Documented by User: Dee Green NP 09/27/24 09:00 HPI - Anesthesia Eval Consult details Narrative: 68yo M for L3-4 Oblique Lumbar Interbody Fusion, 09/28/24 No recent illness No CP/SOB with housework/grocery shopping Aortic Stenosis: mild, GRACIELA 1.6. Follows [facility]. Stable at yearly office visit 04/2024 PAD s/p bilat CEA: Follows [facility] [place] vascular COPD/Smoker/THC: Thrombocytopenia. [facility]. Plt = 56 on 09/24/24. Surgeon notified. PENDING SALE TO [facility] Active Problems Active Problems: All Active Problems Radiculopathy due to lumbar intervertebral disc disorder (Acute) Scoliosis (and kyphoscoliosis), idiopathic (Acute) Myofascial low back pain (Acute) Spinal stenosis (Acute) Leg pain, bilateral (Acute) Hypoxia (Acute) Erectile dysfunction due to arterial insufficiency (Acute) Hypogonadism in male (Acute) Carotid stenosis, bilateral (Acute) COPD (chronic obstructive pulmonary disease) (Acute) Smoker (Acute) HTN (hypertension) (Acute) Testicular cancer (Acute) Past Medical History Medical History (Updated 09/27/24 @ 13:56 by ADALBERTO Barry) Thrombocytopenia Aortic stenosis COPD (chronic obstructive pulmonary disease) Smoker HTN (hypertension) Thrombocytopenia Hyperlipidemia Testicular cancer Lymphoma Family History Family history of problems with anesthesia: No Surgical History Surgical History History of left-sided carotid endarterectomy Hx of cataract extraction Hx of hand surgery Hx of bilateral orchiectomies History of carotid endarterectomy (~09/16/17) History of Problems with Anesthesia: No Social History Social History Household Members: Family Housing Other:: duplex home Are you a primary wound care physician to a significant other at home: No Do you presently have visiting nurse or other home services: No Alcohol intake: never Patient Tobacco Use Status: Current everyday Tobacco user Tobacco use type: Cigarette Cigarettes Per Day: 5 Years Smoked: 46 Second Hand Smoke Exposure: No Use of substances other than those prescribed or required for medical reasons: Yes Substance Use Type Other:: smokes marijuana Substance Use Frequency: Daily Have you been hit, kicked, punched, or otherwise hurt by someone within the past year? If so, by whom?: No Spiritual Healthcare Practices: none Zoroastrianism Healthcare Practices: Holiness Cultural Healthcare Practices: none Are you DNR?: No Advance Directives: No (states is HCP) Advance Directives Information Provided: No (will bring copy DOS) Advance Directives on File: No Recently lost weight without trying: No Eating poorly because of decreased appetite: No Nutrition Risks: No Nutritional Risk Poor oral hygiene: No service: No Current occupational status: retired Meds Allergies Allergy/AdvReac Type Severity Reaction Status Date / Time bee pollen [bee stings] Allergy Intermediate Swelling Verified 08/05/24 15:18 Home Medications ?Medication ?Instructions ?Recorded ?Confirmed ?Last Taken ?Type aspirin 81 mg tablet,delayed 81 mg PO QAM 08/20/22 08/02/24 Unknown History release folic acid 1 mg tablet 1 mg PO QAM 08/20/22 08/02/24 Unknown History atorvastatin 40 mg tablet 40 mg PO BEDTIME 09/11/22 08/02/24 Unknown History metoprolol tartrate 25 mg tablet 25 mg PO BID 09/11/22 08/02/24 09/16/22 History losartan 50 mg tablet 50 mg PO QAM 08/07/23 08/02/24 Unknown History acetaminophen 500 mg tablet 1,000 mg PO TID 08/02/24 08/02/24 Unknown History Exam Height,Weight and Vital Signs: Height 5 ft 11 in Weight 76.204 kg Last Vital Signs Pulse 62 08/02/24 10:24 Resp 20 08/02/24 10:24 BP 165/78 H 08/02/24 10:24 Pulse Ox 97 08/02/24 10:24 O2 Del Method Room Air 08/02/24 10:24 Pertinent Lab Results Pertinent Lab Results: Lab Results 08/02/24 08/02/24 Range/Units 11:25 11:27 WBC 6.8 (4.8-10.8) X10*3/uL RBC 3.57 L (4.60-5.80) X10*6/uL Hgb 12.2 L (14.0-18.0) g/dl Hct 35.8 L (42.0-52.0) % MCV 100.3 H (80.0-98.0) fL MCH 34.2 H (27.0-33.0) pg MCHC 34.1 (31.0-36.0) g/dl RDW 14.2 (11.0-16.0) % Plt Count 78 L (160-400) X10*3/uL MPV 10.1 (9.4-12.4) fL Absolute Nucleated RBC 0.000 (0.0-0.012) X10*3/uL Nucleated RBC % (auto) 0.0 (0.0-0.2) /100WBC Sodium 145 (135-145) mmol/L Potassium 5.0 (3.3-5.1) mmol/L Chloride 114 H (96-108) mmol/L Carbon Dioxide 29 (22-29) mmol/L Anion Gap 7 L (12-20) BUN 31 H (9-16) mg/dL Creatinine 1.42 H (0.5-1.4) mg/dL Estim Creat Clear Calc 51.5 Estimated GFR 49 Random Glucose 106 (60-115) mg/dL Calcium 9.4 D (8.4-10.2) mg/dL Blood Type A Positive Antibody Screen NEGATIVE Narrative Narrative: EKG 04/2024 NSR @ 65 ECHO 09/2023 Nml LV size and sys funciton. Mild conc LVH. Nml RWM. LVEF 55-60% Grade 1 DD Nml RV size and function Mod dilated LA. Nml RA Trace MR No signif change from 2022 Airway Mallampati Class: III TM Dist: >3cm Neck ROM: Full Denture: Upper and Lower (posts on lower) Heart: RRR +M Lungs: Fine crackles in upper lobes, cta lower lobes Assessment and Plan Assessment Anesthesia Assessment: Anesthesia Plan Discussed, Smoking Cess. Discussed and PAT Visit Final Anesthetic Review Family History of Problems with Anesthesia: No History of Problems with Anesthesia: No Documented by User: Cookie Monique DO 09/28/24 09:26 HPI - Anesthesia Eval Consult details Narrative: 68yo M for L3-4 Oblique Lumbar Interbody Fusion, 09/28/24 No recent illness No CP/SOB with housework/grocery shopping Aortic Stenosis: mild, GRACIELA 1.6. [facility]. Stable at yearly office visit 04/2024 PAD s/p bilat CEA: Follows [facility] [place] vascular COPD/Smoker/THC: Thrombocytopenia. [facility]. Plt = 52k on 09/28/24. Patient is currently receiving platelets in pre-op. PENDING SALE TO [facility] Past Medical History Medical History (Updated 09/27/24 @ 13:56 by ADALBERTO Barry) Thrombocytopenia Aortic stenosis COPD (chronic obstructive pulmonary disease) Smoker HTN (hypertension) Thrombocytopenia Hyperlipidemia Testicular cancer Lymphoma Family History Family history of problems with anesthesia: No Surgical History Surgical History History of left-sided carotid endarterectomy Hx of cataract extraction Hx of hand surgery Hx of bilateral orchiectomies History of carotid endarterectomy (~09/16/17) History of Problems with Anesthesia: No Social History Social History Household Members: Family Housing Other:: duplex home Are you a primary wound care physician to a significant other at home: No Do you presently have visiting nurse or other home services: No Alcohol intake: never Patient Tobacco Use Status: Current everyday Tobacco user Tobacco use type: Cigarette Cigarettes Per Day: 5 Years Smoked: 46 Second Hand Smoke Exposure: No Use of substances other than those prescribed or required for medical reasons: Yes Substance Use Type Other:: smokes marijuana Substance Use Frequency: Daily Have you been hit, kicked, punched, or otherwise hurt by someone within the past year? If so, by whom?: No Spiritual Healthcare Practices: none Zoroastrianism Healthcare Practices: Holiness Cultural Healthcare Practices: none Are you DNR?: No Advance Directives: No (states is HCP) Advance Directives Information Provided: No (will bring copy DOS) Advance Directives on File: No Recently lost weight without trying: No Eating poorly because of decreased appetite: No Nutrition Risks: No Nutritional Risk Poor oral hygiene: No service: No Current occupational status: retired Meds Allergies Allergy/AdvReac Type Severity Reaction Status Date / Time bee pollen [bee stings] Allergy Intermediate Swelling Verified 08/05/24 15:18 Home Medications ?Medication ?Instructions ?Recorded ?Confirmed ?Last Taken ?Type aspirin 81 mg tablet,delayed 81 mg PO QAM 08/20/22 08/02/24 Unknown History release folic acid 1 mg tablet 1 mg PO QAM 08/20/22 08/02/24 Unknown History atorvastatin 40 mg tablet 40 mg PO BEDTIME 09/11/22 08/02/24 Unknown History metoprolol tartrate 25 mg tablet 25 mg PO BID 09/11/22 08/02/24 09/16/22 History losartan 50 mg tablet 50 mg PO QAM 08/07/23 08/02/24 Unknown History acetaminophen 500 mg tablet 1,000 mg PO TID 08/02/24 08/02/24 Unknown History Exam Exam Date and Time: 09/28/24 0915 Height,Weight and Vital Signs: Height 5 ft 11 in Weight 76.204 kg Last Vital Signs Pulse 62 08/02/24 10:24 Resp 20 08/02/24 10:24 BP 165/78 H 08/02/24 10:24 Pulse Ox 97 08/02/24 10:24 O2 Del Method Room Air 08/02/24 10:24 Vital Signs Pulse Rate 62 08/02/24 10:24 Respiratory Rate 20 08/02/24 10:24 Blood Pressure 165/78 H 08/02/24 10:24 Pulse Oximetry 97 08/02/24 10:24 Oxygen Delivery Method Room Air 08/02/24 10:24 Temperature 98.2 F 09/28/24 09:13 Pulse Rate 63 09/28/24 09:13 Respiratory Rate 16 09/28/24 09:13 Blood Pressure 148/56 H 09/28/24 09:13 Pulse Oximetry 96 09/28/24 08:05 Oxygen Delivery Method Room Air 09/28/24 08:05 Airway Mallampati Class: II TM Dist: >3cm Neck ROM: Full Denture: Upper and Lower Heart: S1S2, +Murmur Lungs: CTAB Assessment and Plan Assessment Anesthesia Assessment: Anesthesia Plan Discussed and Chart Reviewed Final Anesthetic Review Family History of Problems with Anesthesia: No History of Problems with Anesthesia: No NPO: Yes ASA Class: III Final Preanesthetic Review: No Changes in Pt Med Stat, Meds/Allgs Chart Revie wed, Consent Obtained/Reviewed and Anes Risks/Benef Reviewed Patient Risk: Intermediate Procedure Risk: Intermediate Anesthetic Plan Anesthetic Plan: GA and Agree w/ Assess. and Plan Disposition: Standard PACU
[2024-09-28] MEDS: ceFAZolin Sodium/Dextrose,Iso 2 GM/50 ML PIGGYBACK IV ×3 (10:00→22:14)
--- NOTE | 2024-09-28 11:57 | P.OP_ITS ---
Operative Note Operative Note Date of Service: 09/28/24 Narrative: Preop Diagnosis: 1.) Lumbar degenerative scoliosis/central and foraminal stenosis 2.) Lumbar radiculopathy Procedure: 1) L3-4 discectomy, arthrodesis and implantation cage through an anterolateral, retroperitoneal approach 2) L3-4 posterior instrumented fusion 3) allograft 4)injection of 10 cc of Exparel at the bilateral L4 transverse process for a muscular erector spinae block and additional Exparel in paravertebral tissue for postop management Consent Informed Consent was obtained for this operation. I have explained the nature, purpose and benefits of the operation. I have discussed the risks and benefit of the operation including possible complications or adverse events with patient/family. Alternative(s) were discussed with the patient with their relative benefits and risks as well as the consequences of not accepting the operation were included in obtaining consent. Surgeon: BRENNAN VELAZQUEZ MD, PHD Procedure Assisted By: berna Jasso Description of Procedure This patient is suffering from severe lumbar radiculopathy with radiating pain to the front of his thighs. Imaging reviews a significant lumbar degenerative scoliosis with auto fusion of the L2-3 segment. We think he is symptomatic from the L3-4 segment therefore I offered him an L3-4 lumbar fusion only because the L2-3 segment is already fused and he denies any back pain so therefore correcting the scoliosis seems an inferior option. The patient was offered an oblique lumbar interbody fusion L3-4. The procedure and complications were explained. The patient was consented. The patient was brought to the operating room and endotracheally intubated. The patient was turned in a lateral position with the left side up. Prep and drape was done followed by timeout. A small incision was made in the left lower abdominal quadrant. The muscle fascia was opened after which the 3 muscle layer was split to enter the retroperitoneal space. Dilators were docked in the anterior one third of the L3-4 disc space followed by a retractor. The retractor was opened. The L3-4 disc space was exposed. An annulotomy was done after which an elevator Moore was used to release the disc material from its endplates and to perforate the contralateral side. A partial discectomy was done. An 8 mm height trial implant was inserted. The discectomy was completed. The endplates were prepared. An 10 x 50 mm with 0 degree lordosis 4 web cage filled with allograft was inserted into the disc space under fluoroscopic guidance. This resulted in partial correction of the scoliosis indirect decompression of the foramina. The retractor was removed. Hemostasis was done. The incision was closed in 2 layers. Steri-Strips used to approximate incision. An OpSite with Tegaderm was used to cover the incision. This marked first part of the procedure. The patient was turned prone on the [place] spine table. 2C arms were installed for fluoroscopy. Prep and drape was done followed by a second timeout. Injection of 10 cc of Exparel at the bilater al L4 transverse processi for a muscular erector spinae block. Two paramedian incisions were made lateral from the L3 and L4 pedicles. The muscle fascia was opened after which the muscle layer was split bluntly to expose the posterolateral gutter. The following steps were taken. A pediguard tap was used to create a transpedicular trajectory into the vertebral body. A K wire was placed. The finding of a trajectory into the pedicle was difficulty due to the scoliotic anatomical changes. I was eventually able to insert pedicle screws predominantly an AP image. A specially designed instrument was advanced over the K wire to decorticate the posterolateral gutter in preparation for the posterolateral fusion. A pedicle screw was advanced over the K wire and the K wire was removed. The steps were done for the bilateral L3 and L4 pedicles. A total of 4 screws were placed with a diameter of 6.5 x 45 mm. Pedicle screws were connected with 45 mm chadd bilaterally and locked down with locking caps. The extension towers were removed. The posterolateral gutter was filled with allograft to complete the posterolateral L3-4 fusion Hemostasis was done and the incision was closed in 2 layers. Steri-Strips were used to approximate the incision. An OpSite with tegaderm was used to cover the incision. All sponge and needle counts were correct. Patient was extubated and transferred in stable is to recovery room. Anesthesia: General Estimated Blood Loss (ml): 30 mL Duration of Surgery: 2 hours Complications: None Postoperative Plan: Admit to inpatient for observation
[2024-09-28] MEDS: Acetaminophen 1,000 MG/100 ML PIGGYBACK 400 MG IV ×2 (12:15→18:02)
[2024-09-28] MEDS: HYDROmorphone HCl 0.5 MG/0.5 ML SYRINGE IVPUSH (13:10)
[2024-09-28] MEDS: 0.9 % Sodium Chloride 1,000 ML 75 ML IVCONT (14:41)
[2024-09-28] MEDS: HYDROmorphone HCl 1 MG/ML SYRINGE 0.5 MG IVPUSH (15:13)
--- NOTE | 2024-09-28 16:39 | PHA.MEDREC ---
Addendum entered by Frederic Terrell RPh 09/28/24 18:47: Per Funmilayo who went to talk to patient again, he is taking pregabalin 50 mg and 100 mg tid, losartan 100 mg daily and he's not taking gabapentin. Med rec was reviewed by juan. Original Note: Pharmacy Consult ? Medication Reconciliation Pharmacy has completed the medication reconciliation. Spoke with patient and confirmed his medications. Patient confirmed he is taking the Testosterone Gel and is doing 3 pumps and applying 2 pumps to one shoulder and 1 pump to the other shoulder; Patient stated he does not need it while being admitted here. Patient confirmed he took one dose of Metoprolol 25mg tab this morning and everything else yesterday.
[2024-09-28] MEDS: oxyCODONE HCl Immed Release 5 MG TABLET 10 MG PO (18:02)
--- NOTE | 2024-09-28 19:59 | PM.EVENT ---
Event Note Date of Service: 09/28/24 Event Note: Pt hypertensive since his procedure. Add one time dose amlodipine 2.5mg and resume losartan tomorrow am. Continue monitoring bp Time Spent With Patient Time: Total time managing care of this patient today ____ minutes.
[2024-09-28] MEDS: Docusate Sodium 100 MG CAPSULE PO (20:09)
[2024-09-28] MEDS: Atorvastatin Calcium 40 MG TABLET PO (20:09)
[2024-09-28] MEDS: amLODIPine Besylate 2.5 MG TABLET PO (20:09)
[2024-09-28] MEDS: Metoprolol Tartrate 25 MG TABLET PO (20:10)
[2024-09-29] MEDS: Acetaminophen 1,000 MG/100 ML PIGGYBACK 400 MG IV ×2 (01:14→06:43)
[2024-09-29 01:44] VITALS: RESP 18
[2024-09-29] MEDS: 0.9 % Sodium Chloride 1,000 ML 75 ML IVCONT (03:00)
[2024-09-29] MEDS: oxyCODONE HCl Immed Release 5 MG TABLET 10 MG PO ×2 (03:47→07:41)
[2024-09-29] MEDS: ceFAZolin Sodium/Dextrose,Iso 2 GM/50 ML PIGGYBACK IV (03:51)
[2024-09-29 04:47] VITALS: RESP 18
[2024-09-29 06:00] VITALS: BP 192/86; PULSE 72; RESP 17; TEMP 36.7; O2SAT 95
[2024-09-29 06:49] VITALS: BP 159/72
[2024-09-29] MEDS: Folic Acid 1 MG TABLET PO (07:40)
[2024-09-29] MEDS: Losartan Potassium 50 MG TABLET 100 MG PO (07:41)
[2024-09-29] MEDS: Metoprolol Tartrate 25 MG TABLET PO (07:41)
[2024-09-29] MEDS: Docusate Sodium 100 MG CAPSULE PO (07:41)
[2024-09-29 07:43] VITALS: BP 178/75; PULSE 85; RESP 18; TEMP 37.2; O2SAT 97
[2024-09-29 07:46] VITALS: BP 178/75; PULSE 85; O2SAT 97
--- NOTE | 2024-09-29 08:36 | P.DS_ITS ---
DS: Providers Provider Date of Service: 09/29/24 Date of admission: 09/28/24 07:51 Date of discharge: 09/29/24 Primary care physician: Shanique Flores MD DS: Summary Time Attestation Discharge Coordination Time (in mins): 16 Quality: Safe Use of Opioids Does Pt have an Active Cancer Diagnosis on the Problem List?: No Quality: Stroke Does the patient have a stroke diagnosis?: No Physical Exam Vital Signs: Vital Signs: Last Vital Signs Temp 99.0 F 09/29/24 07:43 Pulse 85 09/29/24 07:46 Resp 18 09/29/24 07:43 BP 178/75 H 09/29/24 07:46 Pulse Ox 97 09/29/24 07:46 O2 Del Method Room Air 09/29/24 07:43 O2 Flow Rate 2 09/28/24 13:55 BMI result Body Mass Index 23.4 DS: Data Data Completed and Pending Completed studies during hospitalization [Text1]: Procedures Dilation of Left External Carotid Artery, Percutaneous Approach (09/16/22) Extirpation of Matter from Left External Carotid Artery, Open Approach (09/16/22) Supplement Left External Carotid Artery with Synthetic Substitute, Open Approach (09/16/22) Labs on day of discharge: Laboratory Results - last 24 hr 09/28/24 08:08 Blood Type A Positive Antibody Screen NEGATIVE Discharge Plan Discharge Anticipated Discharge Date/Time: 09/29/24 08:45 Patient Disposition: Home, Self-Care Discharge Diagnosis: s/p L3-4 OLIF Referrals: Shanique Blount MD [Primary Care Provider] - 1 Week Discharge Medications: New oxycodone 5 mg tablet See Rx Instructions .ROUTE .COMPLEX PRN (Reason: postoperative pain) Qty: 30 0RF Rx Instructions: Take 1-2 tablets by mouth every 4 hours. Partial Fill upon patient request. Continued pregabalin 100 mg capsule 100 mg PO TID Qty: 90 2RF Rx Instructions: Along with a 50mg tab for a total of 150mg three times a day. testosterone 20.25 mg/1.25 gram (1.62 %) gel in metered-dose pump 3 pump topical QAM 30 Days Qty: 150 2RF Rx Instructions: apply 3 pumps total between EACH upper arm and shoulder atorvastatin 40 mg tablet 40 mg PO BEDTIME metoprolol tartrate 25 mg Tablet 25 mg PO BID acetaminophen 500 mg Tablet 1,000 mg PO TID Rx Instructions: takes with the gabapentin pregabalin 50 mg capsule 50 mg PO TID Rx Instructions: Along with a 100mg tab for a total of 150mg three times a day. folic acid 1 mg tablet 1 mg PO DAILY losartan 50 mg tablet 100 mg PO DAILY Held aspirin 81 mg tablet,delayed release (DR/EC) 81 mg PO DAILY Hold Instructions: Resume on 10/02/24. Discharge Orders: Discharge Order (Routine); Ordered 09/29/24 Ordered By: Gus Sterling Diet: Advance to usual diet Activity on Discharge: As tolerated Stand Alone Forms: Patient Portal Discharge page Print Language: Urdu Activity Restrictions/Additional Instructions: After your spinal surgery we ask you to observe the following restrictions/guidelines: Activity: It is normal to feel some discomfort as you increase your activity, but that will improve with time. We ask you avoid heavy lifting or acitivities that cause pain. As a general rule, 8lbs is a safe limit for lifting right after surgery. Walk as much as you feel comfortable but not to exhaustion. You will feel extra tired the first few days after surgery. Stay well hydrated. It is OK to walk up and down stairs You may return to driving when you are off narcotics (such as vicodin, oxycodone, dilaudid, etc), and you are back to normal functional capacity. If you have any concerns please check with office before driving. Return to work is specific to each patient and each surgery, so please speak with your doctor/PA at first follow up. Please bring paperwork such as FMLA at that time if you need it filled out. Medications: Please hold your Aspirin for 3 days postop. We recommend you take 1,000mg Tylenol every 8 hours for the first few weeks after surgery, if you do not have any liver issues and can tolerate this medication. Do not exceed 4,000mg daily. We will give you a short supply of narcotics after surgery (usually one weeks worth). If you need more please call the office but do not use more than pre scribed. You will need to give our office 48 hours notice if you need narcotics refilled and we do not fill narcotics on weekends or evenings. If you are on a narcotic, it is a good idea to take a stool softener such as colace or senna to avoid constipation If you take blood thinner such as aspirin, Plavix, Coumadin, Effient, Eliquis etc for conditions such as Afib, DVT, Pulmonary embolus, coronary disease, stents etc please speak with your surgeon about specific details as to when you can resume these medications. You can resume other NSAIDs today (09/29/24) (eg: Motrin, Naproxen, etc). Follow up: Please call the office, , after surgery to arrange a 3 week follow up for wound check. Wound Care: You may remove your dressing on the first day after surgery. ?You may ?leave open to air. Please do not remove the steri strips underneath. they will fall off on their own in one week. IT IS NORMAL FOR THE WOUND TO OOZE OR BE BLOODY FOR A FEW DAYS AFTER SURGERY. ?IF THIS HAPPENS JUST PLACE NEW DRESSING OVER IT TO AVOID STAINING CLOTHES. You may shower on post op day # 1 We ask that you do not let the water soak the wound. If it does get wet, just towel dry lightly. Please do not scrub your incision or place any type of chemical/ointment on the wound. No tub baths, pools or jacuzzis for one month. If you have any leaking or redness from your wound, or fevers, please call the office. Care Plan Goals: Return to normal activity as tolerated Health Concerns: None Plan of Treatment: Follow-up in clinic in 2-3 weeks Assessment: POD: 1 Procedure: L3-4 OLIF Mr. Soto is a pleasant 68-year-old male who is postop day 1 status post L3-[address] Garces yesterday. Mr. Soto has been up OOB with PT for evaluation, and is otherwise doing well. PT is recommending DC home with family support. He feels his symptoms are overall better than pre-operatively. He still reports mild low back pain, with good relief with current pain medication regimen. He is voiding well with bedside urinal, and tolerating his current diet. Afebrile, vital signs stable. Full strength 5/5 in his bilateral LE's. Back and anterolateral dressings have some staining without signs of hematoma. No active sanguineous drainage. Area is dry. Plan: Pleasant 68-year-old male who is postop day 1 status post L3-[address] Garces yesterday. He is progressing as expected and has been cleared by PT for discharge home. He meets criteria to be medically discharged home. He was seen at bedside with Dr. Garces. A prescription for Oxycodone 5mg tablet 1-2 tablets every 4 hours PRN was sent to the pharmacy here at [facility] [place]. This should be taken for breakthrough pain secondary to OTC pain control. Gus Garces MD,PhD [facility] [place]
--- NOTE | 2024-09-29 08:45 | HO.NEUROPN_ITS ---
Neurosurgery Operative Note Date of Service: 09/29/24 Narrative: ure: L3-4 OLIF Mr. Soto is a pleasant 68-year-old male who is postop day 1 status post L3-[address] Garces yesterday. Mr. Soto has been up OOB with PT for evaluation, and is otherwise doing well. PT is recommending DC home with family support. He feels his symptoms are overall better than pre-operatively. He still reports mild low back pain, with good relief with current pain medication regimen. He is voiding well with bedside urinal, and tolerating his current diet. Afebrile, vital signs stable. Full strength 5/5 in his bilateral LE's. Back and anterolateral dressings have some staining without signs of hematoma. No active sanguineous drainage. Area is dry. Plan: Pleasant 68-year-old male who is postop day 1 status post L3-[address] Garces yesterday. He is progressing as expected and has been cleared by PT for discharge home. He meets criteria to be medically discharged home. He was seen at bedside with Dr. Garces. A prescription for Oxycodone 5mg tablet 1-2 tablets every 4 hours PRN was sent to the pharmacy here at [facility] [place]. This should be taken for breakthrough pain secondary to OTC pain control. Gus Garces MD,PhD [facility]
--- NOTE | 2024-09-29 08:57 | MHC.CM.PN ---
Patient lives in a duplex w/ spouse. Functionally independent. Denies use of services or DME. PCP Shanique Flores Reports he has an HCP listing his , Meagan, as HCA. Copy requested - he will ask her to bring this morning. DP: Medically cleared for dc home self care. will provide transport at 10:30. RN aware.
--- NOTE | 2024-09-30 08:20 | HO.POSTANES ---
Post Anesthesia Evaluation Post Anesthesia Evaluation Date of Service: 09/30/24 Anesthesia: General Mental Status: Awake Pain Control: Satisfactory Nausea/Vomiting: None Hydration: Adequate Anesthesia-Related Issues: No Anes. Related Issues
== END 2024-09-29 10:53 | disposition home or self-care (01) | DRG 458 ==
LOC: HO.SSSA 12:14 → HO.S3 12:35
PROVIDERS: Neurological Surgery; Nurse Practitioner; Admitting Provider Physician Assistant; PCP Internal Medicine; Visit Provider Physician Assistant
PROC: 0SG00A0 Fusion of Lumbar Vertebral Joint with Interbody Fusion Device, Anterior Approach, Anterior Column, Open Approach (ICD-10-PCS; principal; 2024-09-28 09:50)
DX: M48.061 Spinal stenosis, lumbar region without neurogenic claudication (principal); M41.56 Other secondary scoliosis, lumbar region; F17.210 Nicotine dependence, cigarettes, uncomplicated; Z71.6 Tobacco abuse counseling; Z79.899 Other long term (current) drug therapy
CPT/HCPCS: 36415; 80048; 85027; 86850; 86900; 86901; 97162; C1713; C1889; J0131; J0665; J0666; J0690; J1100; J1171; J2003; J2250; J2371; J2405; J2704; J3010; L8699; P9073

== ENCOUNTER → 2024-09-28 07:51 | Outpatient (BNV) | payer OTHER, SELFPAY | PROVIDERS: Admitting Provider Physician Assistant; PCP Internal Medicine; Visit Provider Neurological Surgery | DX: M41.86 Other forms of scoliosis, lumbar region (principal); M48.061 Spinal stenosis, lumbar region without neurogenic claudication; M54.16 Radiculopathy, lumbar region | CPT/HCPCS: 20930; 22558; 22612; 22840; 22853; 99024; 99499 ==

== ENCOUNTER 2024-10-07 11:28 | Outpatient (AMB) | payer OTHER, SELFPAY ==
--- NOTE | 2024-10-07 11:44 | A.SPINEOV_ITS ---
Intake Visit Reasons: incision check Intake Note: Mr. Soto is here today for an incision check. Structural Welder Required: No Allergies bee pollen [bee stings] Allergy (Intermediate, Verified 10/07/24 11:45) Swelling Assessment & Plan Assessment & Plan (1) S/P lumbar fusion: Code(s): Z98.1 - Arthrodesis status Category: Surgical Plan Teto is a pleasant 68 year old male who underwent L3-4 OLIF on 09/28/2024. He was seen acutely today for a follow up visit due to concerns regarding bruising since surgery. To recap he has a chronically low platelet count and was transfused with pharesed platelets before surgery. He is also on Aspirin. He reports that his sharp pains have subsided since surgery, but he still continues to have dull almost burning type pain. We discussed how this is likely related to postoperative inflammation. In terms of his bruising he has had days where it looks ?better? and he has had days where it looks ?worse . There has been no significant swelling or warmth accompanied with the bruising per his report. No at-home fevers or chills/sweating. No new neurological deficits. The patient ambulates well and rises from a seated position without much difficulty and without assistive devices. His posterior and anterolateral incision sites are closed and well healing. He does have some notable ecchymosis inferior to the incisions on his back near the base of his left gluteus and on the lateral thigh. He also has a small area of ecchymosis about 4 cm long inferior to the left inguinal canal. There is no notable swelling, it is not painful to touch, and the area in which the bruising is found his soft. Due to the fact that he has several areas of bruising since his surgery, I recommended that he spent 5 days off his aspirin as this may be contributing to any small subcutaneous bleed that may have occurred after surgery. He is fairly hypocoagulable at baseline, so this in itself may be the cause of the bruising. Nonetheless, I took some pictures of his bruising and would like him to follow up with me next week in clinic to compare. I will want to make sure this is not worsening at all. I will review the images with Dr. Garces. Gus Garces MD,PhD [facility] Coding Level of Care Code Global (43140) Diagnoses S/P lumbar fusion Z98.1
--- OUTSIDE RECORDS SUMMARY | 2024-10-07 13:45 | XMS_ITS | Clinical Summary ---
Author Organization [facility] Address [address] [place] [address] Care Team Providers Care Transmission Specialist Name Role Phone Bhavya Mahi MONTGOMERY Primary Care Provider [phone] Allergies No known active allergies Medications Medication [...] age to complete this topic Care Teams Transmission Specialist Relationship Specialty Start Date End Date Mahi Latif DO [address] [place] [id number] PCP - General Family Medicine 10/11/22
--- OUTSIDE RECORDS SUMMARY | 2024-10-07 13:45 | XMS_ITS | Clinical Summary ---
Author Organization [employer] [facility] [place] [address] Care Team Providers Care Community Health Education Coordinator Name Role Phone Unavailable Primary Care Provider [...] Type Department Care Team Description 07/30/2024 Telephone [facility] [address] [place] [address] Provider, Not In System Medical Records from Last 3 Months Surgical History Surgery Date Site/Laterality Comments OTHER SURGICAL HISTORY PROCEDURE: [place] LAPAROSCOPY SURGICAL ORCHIECTOMY; COMMENT: bilateral, 1980s HAND [...] hypertension COPD (chronic obstructive pu lmonary disease) ([facility]/HCC) 09/16/2023 DX:COPD (chronic obstructive pulmonary disease) ([facility]) Coronary artery calcificatio n seen on [...] 11/19/2024 2:45 PM EDT Office Visit [facility] Hematology Oncology [address] [place] [address] vE Grullon MD [address] [place] [address] Health Maintenance Due Date Last [...] PM EDT Narrative 04/29/2024 11:18 AM EDT [facility] Diagnostic Imaging Department [address] [place], [place] [id number] Patient: ??MILO CRENSHAW ?/Age/Sex: 1955 - 68 - M Unit#: ??[id number] ? Location/Status: ??SPDICATLS/REG CLI ? Mnemonic/Ordering Site: ??CTLUNGLD/SPCT Ordering Physician: ??RENNY LEDEZMA MD CT Lung Screening Low Dose - 04/28/24 - 1702 Report Status:Signed EXAMINATION: CT chest the lung screening low-dose. CLINICAL INDICATIONS: Current smoker. COMPARISON: CT lung screening 02/07/2023 and 01/29/2022. TECHNIQUE: 2.5 mm thin axial and reformatted 3 mm thin sagittal and coronal images of chest were obtained without contrast. Scanner: Vormetric 64 slice VCT Dose reduction technique: ASIR [...] Procedure Note Rosanna Thakkar MD - 05/18/2024 [facility] Diagnostic Imaging Department [address] [place] [address] Patient: MILO CRENSHAW /Age/Sex: 1955 - 68 - M Unit#: [id number] Location/Status: SPDICATLS/REG CLI Mnemonic/Ordering Site: [facility] Ordering Physician: RENNY LEDEZMA MD CT Lung Screening Low Dose - 04/28/24 - 1702 Report Status:Signed EXAMINATION: CT chest the lung screening low-dose. CLINICAL INDICATIONS: Current smoker. COMPARISON: CT lung screening 02/07/2023 and 01/29/2022. TECHNIQUE: 2.5 mm thin axial and reformatted 3 mm thin sagittal andcoronal images of chest were obtained without contrast. Scanner: [employer]htree[employer]copia 64slice VCT Dose reduction technique: ASIR (Adaptive [...] No evidence of AAA. Mahi Latif DO [facility] US PROCEDURES Edited Result - Final from Last 3 Months or Most Recently Relevant to Health Maintenance Insurance MEDICARE [facility] [place] [phone]
== END 2024-10-07 11:59 | disposition home or self-care (01) ==
LOC: HO.HNS 11:29
PROVIDERS: PCP Internal Medicine; Visit Provider Physician Assistant
DX: Z98.1 Arthrodesis status (principal)
CPT/HCPCS: 99024

== ENCOUNTER 2024-10-14 10:43 | Outpatient (REF) | payer OTHER, SELFPAY | END 2024-10-14 10:44 | disposition home or self-care (01) | LOC: HO.HOSX 10:43 | PROVIDERS: PCP Internal Medicine; Visit Provider Physician Assistant | DX: Z13.89 Encounter for screening for other disorder (principal) ==

== ENCOUNTER 2024-10-14 10:43 | Outpatient (AMB) | payer OTHER, SELFPAY ==
--- NOTE | 2024-10-14 10:45 | A.SPINEOV_ITS ---
Intake Visit Reasons: 1st post op Intake Note: Mr. Soto is here today for his 1st post op. Horologist Apprentice Required: No Allergies bee pollen [bee stings] Allergy (Intermediate, Verified 10/19/24 13:02) Swelling Assessment & Plan Assessment & Plan (1) S/P lumbar fusion: Code(s): Z98.1 - Arthrodesis status Category: Surgical Plan Teto is a pleasant 68 year old male who underwent L3-4 OLIF on 09/28/2024. He was seen last week by this database report writer for evaluation of acute heavy bruising near the incision site and down the left lateral aspect of his upper thigh/hip. I had him come back in today after taking some pictures of the bruising last week to ensure that it is reducing and getting better. He states that subjectively it does seem like it is much better. His pain is also beginning to improve, and he feels the swelling is starting to go down. On examination is bruising has receded significantly. His swelling has also gone down quite a bit. His posterior incision sites appear closed and well healing. I would like you to follow up with us again in 6 weeks for his 2nd postop visit with a set of x-rays. Gus Garces MD,PhD [facility] Orders: Orders XR lumbar spine 4V min 10/14/24 Z98.1 - Arthrodesis status Coding Level of Care Code Global (80903) Diagnoses S/P lumbar fusion Z98.1
== END 2024-10-14 10:59 | disposition home or self-care (01) ==
LOC: HO.HNS 10:44
PROVIDERS: PCP Internal Medicine; Visit Provider Physician Assistant
DX: Z98.1 Arthrodesis status (principal)
CPT/HCPCS: 99024

== ENCOUNTER 2024-10-19 13:01 | Outpatient (AMB) | payer OTHER, SELFPAY ==
--- NOTE | 2024-10-19 13:02 | A.OFFVIS_ITS ---
Intake Visit Reasons: 6m/labs Intake Note: Patient is present for 6m/labs Urology Medication:TESTOSTERONE Antibiotic Allergy:NONE Blood Thinner:ASPIRIN Supervisor Instant Potato Processing Required: No Allergies bee pollen [bee stings] Allergy (Intermediate, Verified 11/26/24 11:54) Swelling HPI Comments Details: Teto is a pleasant male. He is a patient of Dr. Latif. He is seen for the following urologic conditions. - hypogonadism - erectile dysfunction Telemedicine Evaluation 15 min Consultation 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 No longer tested for seminoma Testosterone - 01/07 577, 01/08 389, 01/09 785 0.8 39, 08/12 544 0,5, 02/09 P 0.6 T 589, 08/13 670, 04/13 650 1.1 35, 10/12 461 1.6 Associated erectile dysfunction responsive to tadalafil - using on demand 20 mg PSA 01/07 1.0 Therapeutic plan - continue testosterone supplementation PFSH Medical History Thrombocytopenia Aortic stenosis COPD (chronic obstructive pulmonary disease) Smoker HTN (hypertension) Thrombocytopenia Hyperlipidemia Testicular cancer Lymphoma Surgical History History of testicular surgery History of back surgery History of left-sided carotid endarterectomy Hx of cataract extraction Hx of hand surgery Hx of bilateral orchiectomies History of carotid endarterectomy (~09/16/17) Social History Household Members: Spouse Housing: House Housing Other:: duplex home Are you a primary healthcare educator to a significant other at home: No Do you presently have visiting nurse or other home services: No Alcohol intake: never Patient Tobacco Use Status: Current everyday Tobacco user Tobacco use type: Cigarette Cigarette Packs Per Day: 0.5 Cigarettes Per Day: 10.0 Years Smoked: 46 e-Cigarette/Vaping Use: Never Used Second Hand Smoke Exposure: Yes Substance Use Type: Marijuana service: No Current occupational status: retired Cognitive needs: No Hearing needs: No Vision needs: Yes (Glasses) Review of Systems Const All systems reviewed & are unremarkable except as noted in HPI and below Reports no additional complaints Resp Reports no additional complaints GI Reports no additional complaints Reports as per HPI Musc Reports no additional complaints Physical Exam Telemedicine evaluation Appropriate responses Regular breathing rate and rhythm HEENT Head: Yes normal to inspection Ears: hearing grossly normal bilaterally Eyes General: appearance normal, both eyes and all related structures Neck Neck: Yes normal visual inspection Chest Chest palpation & inspection: normal inspection of the chest Resp Effort & Inspection: normal respiratory effort and able to speak in complete sentences Telehealth Telehealth Location of provider rendering services: practice address Location of patient: address on file Patient Identification confirmed using: Name, : Yes Telehealth method: voice only Patient verbally consented to treatment: Yes Patient verbally consented to billing insurance company: Yes Patient informed of any privacy concerns related to visit: Yes Assessment & Plan Assessment & Plan (1) Testicular cancer: Comment: w/orchiectomy-bilateral Code(s): C62.90 - Malignant neoplasm of unspecified testis, unspecified whether descended or undescended Category: Medical (2) Erectile dysfunction due to arterial insufficiency: Code(s): N52.01 - Erectile dysfunction due to arterial insufficiency Category: Medical Plan Six-month follow-up lab work Orders: Orders Prostate Specific Antigen 6 Months E29.1 - Testicular hypofunction Testosterone, Total 6 Months E29.1 - Testicular hypofunction Complete Blood Count no Diff 6 Months E29.1 - Testicular hypofunction Medications: Changed From testosterone apply 3 pumps total between EACH upper arm and shoulder 3 pumps topical QAM 30 days 150 grams 2RF E29.1 - Testicular hypofunction To testosterone apply 3 pumps total between EACH upper arm and shoulder 3 pumps topical QAM 150 grams 2RF 30 days E29.1 - Testicular hypofunction Patient Instructions: This note is constructed using voice recognition software. While every effort has been made to ensure accuracy building trades teacher errors may have been included. Imaging studies, laboratory and physical exam results were discussed and reviewed in detail. No major barriers to patient understanding were identified. An opportunity to ask questions regarding the treatment plan was provided. All questions were answered. The patient expressed understanding and agreement with the above treatment plan. The patient is aware they should contact our office by phone for worsening of their current condition or the appearance of new urologic symptoms. Compliance is encouraged with any medications and followup testing that is ordered. It is a privilege to participate in the urologic care of your patient. If you have any questions or concerns regarding treatment for the above conditions, or other urologic issues, please do not hesitate to contact me. The office telephone contact is [phone]. Sincerely, Dr Nahid Soriano MD, [facility] - Urology Compassionate Specialist Care for the Genitourinary System Coding Level of Care Code Tele Est Pt Level 3 (39061) Complex EM visit Add On G2211 Diagnoses Testicular cancer C62.90 Erectile dysfunction due to arterial insufficiency N52.01
--- OUTSIDE RECORDS SUMMARY | 2024-10-19 15:14 | XMS_ITS | Clinical Summary ---
Author Organization [facility] [place] [address] Care Team Providers Care Imcu Nurse Name Role Phone Unavailable Primary Care Provider [...] Type Department Care Team Description 07/30/2024 Telephone [facility] Cardiology Associates [facility] [address] [place] [address] Provider, Not In System Medical Records from Last 3 Months Surgical History Surgery Date Site/Laterality Comments OTHER SURGICAL HISTORY PROCEDURE: [place] LAPAROSCOPY SURGICAL ORCHIECTOMY; COMMENT: bilateral, 1980s HAND [...] hypertension COPD (chronic obstructive pu lmonary disease) ([facility]) 09/16/2023 DX:COPD (chronic obstructive pulmonary disease) ([facility]) Coronary artery calcificatio n seen on CAT [...] 11/19/2024 2:45 PM EDT Office Visit [facility] Hematology Oncology [address] [place] [address] Ev Grullon MD [address] [place] [address] Health Maintenance Due Date Last Done Comments Zoster Vaccines (1 of 2) 11/17/2003 RSV [...] patient's age to complete this topic Hepatitis A Vaccines Aged Out No long er eligible [...] PM EDT Narrative 04/29/2024 11:18 AM EDT [facility] Diagnostic Imaging Department [address] [place], [place] [id number] Patient: ??MILO CRENSHAW ?/Age/Sex: 1955 - 68 - M Unit#: ??[id number] ? Location/Status: ??SPDICATLS/REG CLI ? Mnemonic/Ordering Site: ??[facility]/SPCT Ordering Physician: ??RENNY LEDEZMA MD CT Lung Screening Low Dose - 04/28/24 - 1702 Report Status:Signed EXAMINATION: CT chest the lung screening low-dose. CLINICAL INDICATIONS: Current smoker. COMPARISON: CT lung screening 02/07/2023 and 01/29/2022. TECHNIQUE: 2.5 mm thin axial and reformatted 3 mm thin sagittal and coronal images of chest were obtained without contrast. Scanner: Trly Uniq 64 slice VCT Dose reduction technique: ASIR [...] Procedure Note Rosanna Thakkar MD - 05/18/2024 [facility] Diagnostic Imaging Department [address] [place] [address] Patient: MILO CRENSHAW /Age/Sex: 1955 - 68 - M Unit#: [id number] Location/Status: SPDICATLS/REG CLI Mnemonic/Ordering Site: [facility] Ordering Physician: RENNY LEDEZMA MD CT Lung Screening Low Dose - 04/28/24 - 1702 Report Status:Signed EXAMINATION: CT chest the lung screening low-dose. CLINICAL INDICATIONS: Current smoker. COMPARISON: CT lung screening 02/07/2023 and 01/29/2022. TECHNIQUE: 2.5 mm thin axial and reformatted 3 mm thin sagittal andcoronal images of chest were obtained without contrast. Scanner: [employer] 64slice VCT Dose reduction technique: ASIR (Adaptive [...] No evidence of AAA. Mahi Latif DO [facility] US PROCEDURES Edited Result - Final from Last 3 Months or Most Recently Relevant to Health Maintenance Insurance MEDICARE [facility] [place] [phone]
--- OUTSIDE RECORDS SUMMARY | 2024-10-19 15:14 | XMS_ITS | Clinical Summary ---
Author Organization [facility] Address [address] [place] [address] Care Team Providers Care Shovel Oiler Name Role Phone Bhavya Mahi MONTGOMERY Primary [...] age to complete this topic Care Teams Shovel Oiler Relationship Specialty Start Date End Date Mahi Latif DO [address] [place] [id number] PCP - General Family Medicine 10/11/22
== END 2024-10-19 13:59 | disposition home or self-care (01) ==
LOC: HO.HUSH 13:01
PROVIDERS: PCP Internal Medicine; Visit Provider Urology
DX: C62.90 Malignant neoplasm of unspecified testis, unspecified whether descended or undescended (principal); N52.01 Erectile dysfunction due to arterial insufficiency
CPT/HCPCS: 98013

== ENCOUNTER 2024-11-22 13:24 | Outpatient (AMB) | payer OTHER, SELFPAY ==
--- NOTE | 2024-11-22 13:27 | A.OFFPC_ITS ---
Vital Signs 11/22/24 13:29 11/22/24 14:10 Height 5 ft 8.5 in Weight 173 lb 6 oz BMI 26.0 BP 140/72 H 180/64 H Blood Pressure Location Lt brachial Lt brachial Position Sitting Sitting Pulse 62 Pulse Source Pulse Oximeter Temp 97.3 F Temp Source Temporal Artery Scan Pulse Oximetry (%) 98 Oxygen Delivery Method Room Air Intake Visit Reasons: establish care Intake Note: Patient is a new patient here to establish care for COPD, HTN, Hypogonadism, Cardiac issue, Back pain, Testicular cancer, hx Lymphoma. Transferring care from [place] ([facility]) . Medical records have been requested and have not received. Events Associate Required: No Bacteriology Research Assistant: Present Accompanied by: Spouse Allergies bee pollen [bee stings] Allergy (Intermediate, Verified 11/22/24 13:40) Swelling Medication List - Last Reconciled 11/22/24 by Karolina Abdul PA-C acetaminophen 1,000 mg PO TID aspirin 81 mg PO DAILY atorvastatin 40 mg PO BEDTIME folic acid 1 mg PO DAILY losartan 100 mg PO DAILY metoprolol tartrate 25 mg PO BID pregabalin 100 mg PO Q8H testosterone 3 pumps topical QAM 30 days Tobacco use date assessed: 11/22/24 Fall risk assessment: No Falls in past year Last assessed Fall Risk: 11/22/24 Dental Screening Dental Screen Date: 11/22/24 Did you have a dental visit in the last 12 months?: No Did you have a dental problem in the last 6 months where you did not have access to dental care?: No Was dental information given to patient?: Patient has dentist (Dentures) HPI establish care HPI Details 69-year-old male coming to the office fo r the 1st time.?He does have a history of testicular cancer, hypertension, COPD, spinal stenosis with radiculopathy s/p lumbar fusion with [facility] spine Center. He was seen for his 1st postop 10/14/2024 doing well advised to follow up in 6 weeks.?He was seen by Urology 10/19/2024 continue on testosterone supplementation.?He is seen by vascular surgery 08/05/2024 for bilateral carotid stenosis with previous endarterectomy in 2018 in 2022.?Advised to stop smoking and follow up at about 10 months for repeat ultrasound. Presenting with hypertension management and follow-up on lumbar spine status post-lumbar fusion. He has smoked since age 20, aware of smoking-related health risks, and participates in lung cancer screening. Managed at oncology for prior testicular carcinoma, the patient also has a history of lymphoma resolved after surgery. His blood pressure typically measures 140s mmHg at home; variations are noted in a clinical setting. The patient suffers from scoliosis and lumbar spinal stenosis; lumbar fusion performed on September 28 showed improved lower extremity function but persistent low back pain. COPD, confirmed stable without inhalers, and anxiety, considered manageable without treatment, are part of his clinical picture. Patient's health is also impacted by hypogonadism secondary to surgery, managed with testosterone supplementation. He has never had colorectal cancer screening completed. He does participate with the annual lung cancer screening program through [facility]. He does also follow with my eye doctor in [place] for Ophthalmology. [facility] Medical History Thrombocytopenia Aortic stenosis COPD (chronic obstructive pulmonary disease) Smoker HTN (hypertension) Thrombocytopenia Hyperlipidemia Testicular cancer Lymphoma Surgical History History of testicular surgery History of back surgery History of left-sided carotid endarterectomy Hx of cataract extraction Hx of hand surgery Hx of bilateral orchiectomies History of carotid endarterectomy (~09/16/17) Social History Household Members: Spouse Housing: House Housing Other:: duplex home Are you a primary personal caregiver to a significant other at home: No Do you presently have visiting nurse or other home services: No Alcohol intake: never Patient Tobacco Use Status: Current everyday Tobacco user Tobacco use type: Cigarette Cigarette Packs Per Day: 0.5 Cigarettes Per Day: 10.0 Years Smoked: 46 e-Cigarette/Vaping Use: Never Used Second Hand Smoke Exposure: Yes Substance Use Type: Marijuana service: No Current occupational status: retired Cognitive needs: No Hearing needs: No Vision needs: Yes (Glasses) Questionnaire PHQ-9 Over the last 2 weeks, how often have you been bothered by any of the following problems? 1. Little interest or pleasure in doing things: not at all 2. Feeling down, depressed, or hopeless: not at all 3. Trouble falling or staying asleep, or sleeping too much: not at all 4. Feeling tired or having little energy: several days 5. Poor appetite or overeating: not at all 6. Feeling bad about yourself - or that you are a failure or have let yourself or your family down: not at all 7. Trouble concentrating on things, such as reading the newspaper or watching television: not at all 8. Moving or speaking so slowly that other people could have noticed. Or the opposite - being so fidgety or restless that you have been moving around a lot more than usual: not at all 9. Thoughts that you would be better off or of hurting yourself in some way: not at all Total score: 1 Depression Screening Interpretation: Negative Depression Screening Done: Yes Source: Developed by Drs. Landon Harmon, Alexia Wilson, Jose Be and colleagues, with an educational lester from [employer]. Thrive Questionnaire Date Thrive assessed: 11/16/24 I am a: Patient What is your living situation today?: I have a steady place to live Within the past 12 months, did the food you bought not last and you didn't have the money to get more?: Never true Within the past 12 months, did you worry whether your food would run out before you got money to buy more?: Never true Do you have trouble paying for medicines?: No Do you have trouble getting transportation to medical appointments?: No Do you have trouble paying your heating and electricity bill?: No Do you have trouble taking care of your child, family member or friend?: No Do you have trouble with day-to-day activities such as bathing, preparing meals, shopping, managing finances, etc.?: No Are you currently unemployed and looking for a job?: No Are you interested in more education?: No Please select the resources that you would like help with: None Currently or been in a relationship where the following occur: No concerns reported THRIVE Score: 0 AUDIT C Alcohol Use Questionnaire (AUDIT-C) 1. How often do you have a drink containing alcohol?: Never Total Score: 0 NANCY-7 AMB Questionnaire NANCY-7 Date NANCY - 7 assessed: 11/22/24 Feeling nervous, anxious, or on edge: 0 = Not at all Not being able to stop or control worryin = Not at all Worrying too much about different things: 0 = Not at all Trouble relaxin = Not at all Being so restless that it is hard to sit still: 0 = Not at all Becoming easily annoyed or irritable: 0 = Not at all Feeling afraid as if something awful might happen: 0 = Not at all Total NANCY-7 score (0-4 normal; 5-9 mild; 10-14 moderate; 15-21 severe): 0 Source: Developed by Drs. Landon Harmon, Alexia Wilson, Jose Be and colleagues, with an educational lester from [employer]. NANCY-7 Assessment Billing NANCY-7 Assessment Tool: NANCY-7 Assessment 13221 Review of Systems Const Denies chills, Denies fever(s) and Denies poor appetite Eyes Reports no additional complaints ENT Denies dizziness Card Denies chest pain, Denies syncope, Denies edema, Denies irregular heart rhythm, Denies lightheadedness and Denies dyspnea Resp Denies cough and Denies dyspnea GI Denies abdominal pain, Denies constipation, Denies diarrhea, Denies nausea and Denies vomiting Reports no additional complaints Musc Denies abnormal gait and Reports back pain Skin/Breast Reports system reviewed and no additional complaints, except as documented Neuro Denies abnormal gait, Denies dizziness and Denies syncope Psych Reports no additional complaints Physical exam (Primary Care) Vital Signs: Last Vital Signs Temp 97.3 F 11/22/24 13:29 Pulse 62 11/22/24 13:29 BP 180/64 H 11/22/24 14:10 Pulse Ox 98 11/22/24 13:29 Oxygen Delivery Method Room Air 11/22/24 13:29 BMI result Body Mass Index 26.0 Tobacco/Smoking Status: Tobacco use Status Tobacco use date assessed 11/22/24 11/22/24 13:39 Patient Tobacco Use Status Current everyday Tobacco 11/22/24 13:39 Tobacco use type Cigarette 11/22/24 13:39 e-Cigarette/Vaping Use Never Used 11/22/24 13:39 PHQ-9: PHQ-9 Score PHQ-9: Total score 1 11/22/24 13:47 Depression Screening Interpretation: Negative Thrive Assessment: Date of Thrive Assessment Date Thrive assessed 11/16/24 11/22/24 13:39 Currently or been in a relationship where the following occur: No concerns reported Const General: cooperative, healthy appearing, comfortable and no acute distress Orientation/consciousness: patient oriented x3 HENMT Head: Yes normocephalic Ears: hearing grossly normal bilaterally General nose exam: Normal external nose present Eyes General: appearance normal, both eyes and all related structures Conjunctivae: conjunctivae normal Neck Neck: Yes full ROM and Yes no lymphadenopathy Resp Effort & Inspection: normal respiratory effort Auscultation: clear to auscultation bilaterally, no crackles, no rales, no rhonchi and no wheezes Cardio Rate: regular rate Rhythm: regular rhythm Skin General skin exam: no rashes or lesions noted Neuro General: patient oriented x3 Gait exam (Neuro): Normal gait present Extrem General: Yes normal to inspection, Yes full ROM and No edema Psych Affect: normal affect Attitude: cooperative Insight: Good insight present (Psych) Judgement: Good judgement present (Psych) Coding Level of Care Code New Pt Level 4 (95396) Diagnoses S/P lumbar fusion Z98.1 Hypogonadism in male E29.1 Carotid stenosis, bilateral I65.23 COPD (chronic obstructive pulmonary disease) J44.9 Smoker F17.200 HTN (hypertension) I10 Testicular cancer C62.90 Aortic stenosis I35.0 Additional Codes NANCY-7 Assessment Billing - NANCY-7 Assessment Tool: NANCY-7 Assessment 91754 ([id number]) Assessment & Plan Assessment & Plan (1) S/P lumbar fusion: Code(s): Z98.1 - Arthrodesis status Category: Surgical Plan: Patient doing well postoperatively and does follow with a spinal center. He has a appointment coming up for 6 week follow up. Has seen an improvement in his overall mobility but does still have mild low back pain. (2) Hypogonadism in male: Code(s): E29.1 - Testicular hypofunction Category: Medical Plan: Currently following with [facility] Urology for testosterone replacement. (3) Carotid stenosis, bilateral: Comment: 09/16/2017 right carotid endarterectomy 09/16/2022- left carotid endarterectomy Code(s): I65.23 - Occlusion and stenosis of bilateral carotid arteries Category: Medical Plan: Patient following with [facility] vascular surgery for carotid stenosis. He is on atorvastatin 40 mg. Strongly advised against smoking. (4) COPD (chronic obstructive pulmonary disease): Comment: PULMONARY FUNCTION TEST WAS ESSENTIALLY WITHIN NORMAL LIMITS EXCEPT FOR ISOLATED DECREASE IN DLCO 50 % DL/VA IS 64%. THIS IS PROBABLY DUE TO PULMONARY EMPHYSEMA. ANYWAY PATIENT DOES NOT NEED ANY BRONCHODILATOR INHALERS. Code(s): J44.9 - Chronic obstructive pulmonary disease, unspecified Category: Medical Plan: Patient has seen pulmonology diagnosed with COPD no intervention needed at this time. (5) Smoker: Comment: HAS HISTORY OF SMOKING 1 PACK A DAY FOR 46 YEARS. POST CAROTID ARTERY SURGERY AND FINDING OF HYPOXEMIA, HE HAD CUT DOWN TO 5 CIGARETTES A DAY. SINCE LAST YEAR HE HAD GONE BACK TO 10 CIGARETTES A DAY. NOW AGAIN CUT DOWN TO 5 CIGARETTES A DAY WE HAD A LONG DISCUSSION AND I HAVE URGED HIM TO MAKE BEST EFFORT TO QUIT COMPLETELY . HAVING ANNUAL LUNG SCREENING AT [facility] . Code(s): F17.200 - Nicotine dependence, unspecified, uncomplicated Category: Social Hx Plan: Smoking cigarettes and the use of tobacco can be harmful. We discussed the importance of stopping and options to aid in smoking cessation. Declines a nicotine replacement therapy or oral medication at this time. He is enrolled in lung cancer screening program through [facility] (6) HTN (hypertension): Comment: follows w/[facility] Code(s): I10 - Essential (primary) hypertension Category: Medical Plan: Blood pressure severely elevated on exam today 180/66 when retaken. Patient has tried amlodipine in the past and had leg swelling. He is on the top dose of losartan and due to moderate to low heart rate would not increase metoprolol at this time. Plan to add hydrochlorothiazide as he has had this in the past with good benefit. Advised patient to monitor blood pressures at home and reviewed when to reach out to the office. Avoid salt intake and encourage healthy diet and regular exercise. (7) Testicular cancer: Comment: w/orchiectomy-bilateral Code(s): C62.90 - Malignant neoplasm of unspecified testis, unspecified whether descended or undescended Category: Medical Plan: Patient is currently following with Hematology/Oncology. (8) Aortic stenosis: Comment: follows w/ [facility] Code(s): I35.0 - Nonrheumatic aortic (valve) stenosis Category: Medical Plan: Patient follows with [facility] for aortic stenosis monitoring. Patient is asymptomatic at this time. Plan For management of hypertension, I will initiate a trial of hydrochlorothiazide due to ongoing uncontrolled blood pressure readings, ensuring vigilant monitoring for any signs of hypotension. The patient's post-lumbar fusion status is stable with improved mobility, but I recommend close monitoring of back pain and suggest orthopedic re-evaluation if necessary. Continuous management of COPD without the need for inhalers is planned, and the patient's anxiety will be managed without pharmacotherapy, given current stability. Hypogonadism management remains unchanged with ongoing testosterone supplementation, and regular PSA monitoring is to continue. I recommend Cologuard testing for colorectal cancer screening, as the patient prefers this method over more invasive procedures. Smoking cessation should be further encouraged with supportive resources made available. This note was constructed using voice recognition software. While every effort has been made to ensure accuracy and electric mule operator, still areas may have been included sometimes these areas may affect the content or meeting of the given symptoms. Total time spent caring for the patient today was 30 minutes. This includes time spent before the visit reviewing the chart, time spent during the visit, and time spent after the visit and documentation. Patient was informed and verbally consented to the use of an ambient scribe for clinic note documentation during this visit. Orders: Orders Vitamin B12 and Folate 11/22/24 Z00.00 - Encounter for general adult medical examination without abnormal findings Lipid Panel 11/22/24 E78.00 - Pure hypercholesterolemia, unspecified Vitamin D 25-OH Total 11/22/24 Z00.00 - Encounter for general adult medical examination without abnormal findings Hemoglobin A1c 11/22/24 Z13.1 - Encounter for screening for diabetes mellitus Referrals Cologuard Test Z12.11 - Encounter for screening for malignant neoplasm of colon, Z12.12 - Encounter for screening for malignant neoplasm of rectum Medications: New hydrochlorothiazide 12.5 mg PO DAILY 30 tabs 1RF Discontinued pregabalin Discontinued Reason: Doctor's Order 50 mg PO BID 60 caps 0RF
[2024-11-22 13:29] VITALS: BP 140/72; PULSE 62; TEMP 36.3; O2SAT 98; BMI 26.0
[2024-11-22 14:10] VITALS: BP 180/64
--- OUTSIDE RECORDS SUMMARY | 2024-11-22 14:53 | XMS_ITS | Encounter Summary ---
Author Organization [employer] Address [address] [place] [address] Care Team Providers Care Traveling Operator Name Role Phone Karolina Abdul Primary Care Provider Reason for Visit * Reason Comments Follow-up Encounter Details Date Type Department Care Team (Latest Contact Info) Description 11/19/2024 2:45 PM EDT Office Visit [facility] Hematology Oncology [address] [place] [phone] Ev Grullon MD [address] [place] [phone] Thrombocytopenia (CMS/HCC V24) (Primary Dx) Social History Tobacco Use Types Packs/Day Years [...] on file documented as of this encounter Last Filed Vital Signs Vital Sign Reading Time Taken Comments Blood Pressure 163/70 11/19/2024 2:52 PM EDT Pulse 86 11/19/2024 2:52 PM EDT Temperature 36.7 ??C (98 ??F) 11/19/2024 2:52 PM EDT Respiratory Rate - - Oxygen Saturation 98% 11/19/2024 2:52 PM EDT Inhaled Oxygen Concentration - - Weight 80.3 kg (177 lb) 11/19/2024 2:52 PM EDT Height 180.3 cm (5' 11 ) 11/19/2024 2:52 PM EDT Body Mass Index 24.69 11/19/2024 2:52 PM EDT documented in this encounter Progress Notes * Subramony Subjayme-MD Lobito - 11/19/2024 2:45 PM EDT CHIEF COMPLAINT: Chief Complaint Patient presents with Follow-up Thrombocytopenia IDENTIFIER:Milo Crenshaw is a 69 y.o. male. HPI: The patient returns for follow up of thrombocytopenia, prior history of testicular cancer/lymphoma For details of initial diagnosis and follow up until MAY 21, 2024- please refer to notes from prior [facility] EMR last note dated 11/14/2023 Patient reports that he has been doing well over the last year. He did indeed undergo surgery at [facility] for his back earlier this year. At that time he needed platelet infusion. In September platelet count was 50. He does have bruising along his arms, no significant mucosal bleeding. His weight is stable. Denies any chills fevers or sweats. He has not noticed any adenopathy. The following is copied, reviewed and edited Cancer Staging No matching staging information was found for the patient. Oncology History No history exists. 63-year-old man, who is referred for evaluation of thrombocytopenia. Patient reports being told that his platelet counts are low, when he underwent carotid artery procedure with Dr. Hook of [facility] vascular. Patient also follows with urology, has prior history of testicular cancer. His initial diagnosis was at age 29, when he was in [place]. At that time he was underwent surgery followed by radiation for right-sided testicular cancer. After moving to this area, in late , he underwent a second surgery for left-sided testicular cancer. 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 Jeremy Wade. Patient recalls being quite sick with the chemotherapy, losing hair, fatigue etc. 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 He denies any skin bleeding except with minor trauma. He denies any nosebleeds or gum bleeds. He has not noticed any bleeding in his urine or bowel movement. His weight has remained fairly steady. He lost about 50 pounds over the last 10 years, gradually. He denies any chills or night same sweats. PLAN-- - 63-year-old man with chronic mild thrombocytopenia, who has managed to get through carotid endarterectomy surgery despite the low platelet count without any significant bleeding. Clinically he is doing well. The low platelet count may be related to his prior exposure to chemotherapy and incomplete recovery. This may also be related to immune thrombocytopenia. Secondary causes need to be excluded such as vitamin B12 deficiency, folate deficiency, hepatitis C. These tests will be requested. He has previously been tested for HIV and is negative. He may continue close follow-up with his PCP with lab work at 6-month interval and return to this clinic for follow-up in a year. In the interim, I will contact him with results from the lab work and if any supplementation is needed. 07/2020 -- Patient reports that he is feeling well. He had several dental procedures during the last year, from which he recovered quite quickly. He reports that his dentist was quite pleased. He denies any excessive bleeding. He continues on folic acid supplementation. This was started last year after his folate level was at 6. Patient denies any other episodes of bleeding. No bruising. He remains fairly active. He has not been able to do any lab work recently. Will send out a request 10/2023- Patient had lab work performed by Dr. Orozco, urology whom he follows for BPH and low testosterone levels. Patient is on testosterone replacement. His hemoglobin has improved to 12.8 over the last year. Platelets are stable at 81. No episodes of bleeding or bruising. He did lose about 8 pounds in weight. Patient reports that he was on water pill for leg edema sometime during last year and that caus ed some weight loss. His current complaints is pain along the back of his right leg, sounds like claudication pain as it is mostly with activity and improves with rest. He does have follow-up with vascular surgeon at [facility], and I recommended that he call their office and have vascular studies performed for the right leg. He has not noticed any new lymph node enlargement. Denies any chills fevers or night sweats Mild anemia is persistent, and he is continuing to use folate. ROS: GENERAL: No malaise, significant weight loss or fever NECK: No lumps, goiter, pain or significant neck swelling RESPIRATORY: No cough, wheezing or shortness of breath CARDIOVASCULAR: No chest pain, leg swelling or palpitations GI: No abdominal discomfort, blood in stools or black stools MUSCULOSKELETAL: No joint pain or swelling, back pain, or muscle pain. HEMATOLOGY/LYMPHOLOGY No prolonged bleeding, easy bruisability or swollen nodes Other Systems review is non contributory PAST MEDICAL HISTORY: Active Ambulatory Problems Diagnosis Date Noted Essential hypertension 10/20/2017 Low folate 08/10/2020 Testosterone deficiency 11/14/2023 Thrombocytopenia ([facility] V24) 10/20/2017 Weight loss 11/14/2023 Resolved Ambulatory Problems Diagnosis Date Noted No Resolved Ambulatory Problems Past Medical History: Diagnosis Date Anxiety state BPH (benign prostatic hyperplasia) 08/25/2017 COPD (chronic obstructive pulmonary disease) ([facility] V24, [facility] V28) 09/16/2023 Coronary artery calcification seen on CAT scan 04/26/2024 History of lymphoma 08/07/2017 History of testicular cancer 08/07/2017 Hyperlipidemia Hypogonadism, male 08/25/2017 SOCIAL HISTORY: Social History Tobacco Use Smoking status: Every Day Current packs/day: 0.50 Types: Cigarettes Smokeless tobacco: Never Substance Use Topics Alcohol use: Not Currently FAMILY HISTORY: Family History Problem Relation Name Age of Onset Alcohol abuse Mother ?diabetes Diabetes Mother Cataracts Father pancreatic cancer No Known Problems Sister No Known Problems Sister No Known Problems Daughter Current Outpatient Medications: aspirin 81 mg EC tablet, Take 1 tablet (81 mg total) by mouth 1 (one) time each day., Disp: , Rfl: atorvastatin (LIPITOR) 40 mg tablet, Take 1 tablet (40 mg total) by mouth 1 (one) time each day., Disp: , Rfl: folic acid (FOLVITE) 1 mg tablet, Take 1 tablet (1 mg total) by mouth 1 (one) time each day., Disp:, Rfl: losartan (COZAAR) 100 mg tablet, TAKE ONE TABLET BY MOUTH ONCE DAILY, Disp: 90 tablet, Rfl: 1 metoprolol succinate (TOPROL-XL) 25 mg 24 hr tablet, Take by mouth daily., Disp: , Rfl: pregabalin (LYRICA) 100 mg capsule, Take 1 capsule (100 mg total) by mouth 3 (three) times a day. Max Daily Amount: 300 mg, Disp: , Rfl: testosterone 1.62 % (20.25 mg/1.25 gram) gel in packet, Place onto the skin., Disp: , Rfl: No Known Allergies PHYSICAL EXAM: Visit Vitals BP (!) 163/70 (BP Location: Left arm, Patient Position: Sitting, BP Cuff Size: Adult) Pulse 86 Temp 36.7 ??C (98 ??F) (Temporal) Ht 1.803 m (71 ) Wt 80.3 kg (177 lb) SpO2 98% BMI 24.69 kg/m?? Smoking Status Every Day BSA 2 m?? APPEARANCE: Alert and in no acute distress EYES: PERRL, conjunctiva pink and sclera are Normal without icterus ORAL CAVITY: No erythema or exudates NECK: Neck supple, no adenopathy, HEART: RRR with normal S1 and S2, no murmurs, no gallops, no JVD appreciated LUNG: clear to auscultation bilaterally Percussion note normal LYMPH NODES: No palpable superficial adenopathy ABDOMEN: Bowel sounds normoactive, no bruits, soft, non-tender, without organomegaly or palpable masses EXTREMITIES: Extremities warm and well perfused without clubbing, cyanosis, rash or edema NEURO: Oriented X 3, no focal weakness; sensation is normal LABS: Review of Lab results , interpreted No results found for: WBC , HGB , HCT , MCV , PLT No results found for: NA , K , CL , CO2 , GLUCOSE , BUN , CREATININE , CALCIUM , PROT , ALBUMIN , BILITOT , AST , ALT , URICACID , PHOS , MG , ALKPHOS , CKTOTAL , EGFR Review of Imaging, interpreted CT LUNG SCREENING LOW DOSE [facility] Diagnostic Imaging Department [address] [place] [id number] Patient: CRENSHAW,MILO /Age/Sex: 1955 - 68 - M Unit#: [id number] Location/Status: [facility]/REG CLI Mnemonic[facility] Ordering Physician: JOSE DANIEL LEDEZMA MD CT Lung Screening Low Dose - 04/28/24 - 170 Report Status:Signed EXAMINATION: CT chest the lung screening low-dose. CLINICAL INDICATIONS: Current smoker. COMPARISON: CT lung screening 02/07/2023 and 01/29/2022. TECHNIQUE: 2.5 mm thin axial and reformatted 3 mm thin sagittal and coronal images of chest were obtained without contrast. Scanner: [email or web address] 64 slice VCT Dose reduction technique: ASIR [...] Date/Time: 04/29/24 1110 Sign date/Time: 04/29/24 1118 Review of External Documentation Tests ordered - IMPRESSION: 1. Thrombocytopenia (CMS/HCC V24) PLAN: 69 -year-old man with prior history of testicular cancer and lymphoma as described previously and who underwent chemotherapy in 1989. Patient presented with thrombocytopenia, however no definitive cause was found other than low folate level. Patient is currently on folate supplementation and had gradual improvement in platelet count over the last 2 years currently platelets are in the 50s Okay to continue using aspirin daily unless any significant mucosal bleeding I will request for him to check CBC, differential, reticulocyte count, B12 level, folate level, annually, to be performed at PCP office -- Has not been able to do recently I will obtain lab work today CBC-date B12, folate, I recommend annual lab work and follow-up, and additional lab work if he develops any excessive bleeding or bruising Recent left carotid endarterectomy, and completion of right side procedure 5 years ago--patient tolerated without any significant bleeding However right leg pain, possible claudication, recommended he follow-up with vascular surgeon at [facility] Also continues on testosterone replacement for deficiency, with Dr. Orozco urology If he notices any excessive bleeding, patient is to contact the clinic sooner. Patient is in agreement with plan. Follow-up in clinic here in future as needed, and continue follow-up with PCP closely. Pain Control--improved since back surgery Health Care Proxy--is his Ev Grullon MD Cc ADALBERTO Coppola documented in this encounter Plan of Treatment Not on file documented as of this encounter Results * (ABNORMAL) Vitamin B12 and folate (11/19/2024 3:08 PM EDT) Pathologist [facility] [place] Vitamin B-12 547 250 - 900 pcg/mL LAB CHEMISTRY METHOD 11/19/2024 5:34 PM EDT [facility] Folate >20.0(H) 2.8 - 17.0 ng/ml LAB CHEMISTRY METHOD 11/19/2024 5:34 PM EDT [facility] Blood Venous blood specimen / Unknown Venipuncture / Unknown 11/19/2024 3:08 PM EDT 11/19/2024 4:43 PM EDT Ev Grullno MD LAB BLOOD ORDERABLE S Final Result [facility] [address] [place] [address], documented in this encounter Visit Diagnoses Diagnosis Thrombocytopenia (CMS/HCC V24)- Primary Unspecified thrombocytopenia documented in this encounter Discontinued Medications Medication Sig Discontinue Reason Start Date End Da te amLODIPine (NORVASC) 10 mg tablet Take 1 tablet (10 mg total) by mouth 1 (one) time each day. 11/19/2024 documented as of this encounter Historical Medications * This list may reflect changes made after this encounter. pregabalin (LYRICA) 100 mg capsule Take 1 capsule (100 mg total) by mouth 3 (three) times a day. Max Daily Amount: 300 mg added in this encounter Care Teams Traveling Operator Relationship Specialty Start Date End Date Karolina Abdul PA [address] [place] [address], [address] [place] [address] PCP - General 11/19/24 documented as of this encounter
--- OUTSIDE RECORDS SUMMARY | 2024-11-22 14:53 | XMS_ITS | Clinical Summary ---
Author Organization [facility] Address [address] [place] [address] Phone Care Team Providers Care Clerk Name Role Phone Karolina Abdul Primary Care Provider [phone] Allergies No known active allergies Medications aspirin 81 mg EC tablet Take 1 [...] BY MOUTH ONCE DAILY 90 tablet 1 5 Active pregabalin (LYRICA) 100 mg capsule Take 1 capsule (100 mg total) by mouth 3 (three) times a day. Max Daily Amount: 300 mg Active amLODIPine (NORVASC) 10 mg tablet Take 1 tablet (10 mg total) by mouth 1 (one) time each day. 11/20/19 25 Discontinued Active Problems Problem Noted Date Diagnosed Date Testosterone deficiency 11/14/2023 Weight loss 11/14/2023 Low folate 08/10/2020 Essential hypertension 10/20/2017 Thrombocytopenia ([facility] V24) 10/20/2017 Encounters Date Type Department Care Team Description 11/19/2024 2:45 PM EDT Office Visit [facility] Hematology Oncology [address] [place] [phone] Ev Butcher MD Thrombocytopenia ([facility]) (Primary Dx) from Last 3 Months Surgical History Surgery Date Site/Laterality Comments OTHER SURGICAL HISTORY PROCEDURE: [place] LAPAROSCOPY SURGICAL ORCHIECTOMY; COMMENT: bilateral, 1980s HAND SURGERY 2014 PROCEDURE: HISTORICAL HAND SURGERY; COMMENT: left hand, s/p trauma, tendon repair TONSILLECTOMY PROCEDURE: HISTORICAL TONSILLECTOMY; COMMENT: & Adenoidectomy CATARACT EXTRACTION PROCEDURE: HISTORICAL CATARACT REMOVAL CAROTID ENDARTERECTOMY Right PROCEDURE: HISTORICAL CAROTID ENDART Medical History Medical History Date Comments History of lymphoma 08/07/2017 DX:History o f lymphoma; COMMENT: 1989, 4 rounds of chemo History of testicular cancer 08/07/2017 DX: History of testicular cancer; COMMENT: Surgery f/b radiation BPH (benign prostatic hyperplasia) 08/25/2017 DX:BPH (benign prostatic hyperplasia) Hypogonadism, male 08/25/2017 DX:Hypogonadi sm, male; COMMENT: Secondary to removal of testes or seminoma, bilaterally. Anxiety state DX:Anxiety state Hyperlipidemia DX:Hyperlipidemi a Essential hypertension DX:Essent ial hypertension COPD (chronic obstructive pu lmonary disease) ([facility] V24, [facility] V28) 09/16/2023 DX:COPD (chronic o bstructive pulmonary disease) ([facility]) Coronary [...] Mass Index 24.69 11/19/2024 2:52 PM EDT Plan of Treatment Health Maintenance Due Date Last Done Comments Zoster Vaccines (1 of 2) 11/17/2003 RSV Immunization Adult Patients (1 - Risk 60-74 years 1-dose series) 2013 Cholesterol Screening (Lipid Panel) 06/29/2022 Colorectal Cancer Screening: Colonoscopy 06/29/2022 Depression Screening 06/29/2022 Falls Risk Assessment 06/29/2022 Hepatitis C Screening 06/29/2022 Social Influencers of Health Screening 06/29/2022 COVID-19 Vaccine ( season) 2024 08/15/2021, 11/28/2020, 10/31/2020 Hypertension/CHF/CAD Annual BMP Blood Test 01/19/2025 01/20/2024, 12/22/2023 Influenza Vaccine (Season Ended) 2025 Lung Cancer Screening (Low Dose CT) 04/29/2025 [...] age to complete this topic Meningococcal B Vaccine Aged Out No l onger eligible based on patient's age to complete this topic RSV Immunization Patients Under 20 months Aged Out No longer eligible based on patient's age to complete this topic Varicella Vaccines Aged Out No longer eligible based on patient's age to complete this topic Procedures Procedure Name Priority Date/Time Associated Diagnosis Comments CBC WITH AUTO DIFFERENTIAL Routine 11/19/2024 3:08 PM EDT Thrombocytopenia ([facility] V24) VITAMIN B12 AND FOLATE Routine 11/19/2024 3:08 PM EDT Thrombocytopenia ([facility] V24) CBC AND DIFFERENTIAL Routine 11/19/2024 3:08 PM EDT Thrombocytopenia ([facility] V24) CT LUNG SCREENING LOW DOSE Routine 04/29/2024 11:18 AM EDT Nicotine dependence, unspecified, uncomplicated US ABDOMINAL AORTA REAL TIME SCREEN STUDY AAA Routine 08/13/2021 9:27 AM EST Nicotine dependence, unspecified, uncomplicated from Last 3 Months or Most Recently Relevant to Health Maintenance Results * (ABNORMAL) Vitamin B12 and folate (11/19/2024 3:08 PM EDT) Vitamin B-12 547 250 - 900 pcg/mL LAB CHEMISTRY METHOD 11/19/2024 5:34 PM EDT [facility] Folate >20.0(H) 2.8 - 17.0 ng/ml LAB CHEMISTRY METHOD 11/19/2024 5:34 PM EDT [facility] Blood Venous blood specimen / Unknown Venipuncture / Unknown 11/19/2024 3:08 PM EDT 11/19/2024 4:43 PM EDT Ev Grullon MD LAB BLOOD ORDERABLE S Final Result [facility] [address] [place] [address], * (ABNORMAL) CBC auto differential (11/19/2024 3:08 PM EDT) [facility] WBC 5.7 4.8 - 10.8 K/mcL LAB HEMETOLOGY METHOD 11/19/2024 5:43 PM EDT [facility] RBC 3.40(L) 4.50 - 5.50 M/mcL LAB HEMETOLOGY METHOD 11/19/2024 5:43 PM EDT [facility] Hemoglobin 11.1(L) 13.5 - 17.5 g/dL LAB HEMETOLOGY METHOD 11/19/2024 5:43 PM EDT [facility] Hematocrit 33.6(L) 42.0 - 54.0 % LAB HEMETOLOGY METHOD 11/19/2024 5:43 PM EDT [facility] MCV 98.2(H) 79.0 - 98.0 FL LAB HEMETOLOGY METHOD 11/19/2024 5:43 PM EDT [facility] MCH 32.5(H) 27.0 - 32.0 pcg LAB HEMETOLOGY METHOD 11/19/2024 5:43 PM EDT [facility] MCHC 33.0 32.0 - 37.0 g/dL LAB HEMETOLOGY METHOD 11/19/2024 5:43 PM EDT [facility] RDW 14.0 11.0 - 15.0 % LAB HEMETOLOGY METHOD 11/19/2024 5:43 PM EDT [facility] Platelets 68(L) 130 - 400 K/mcL LAB HEMETOLOGY METHOD 11/19/2024 5:43 PM EDT [facility] Comment:reviewed by slide MPV 11.3(H) 7.0 - 11.0 FL LAB HEMETOLOGY [facility]19[facility]24 [facility] NRBC 0.0 <1.0 % LAB HEMETOLOGY METHOD [facility]/19[facility]2024 5:[facility] NRBC Absolute 0.00 <0.10 K/mcL LAB HEMETOLOGY METHOD 11/19/2024 5:43 PM [facility] Neutrophils Relative 67.9 % LAB HEMETOLOGY METHOD 11/19/2024 5:43 PM [facility] Lymphocytes Relative 20.4 % LAB HEMETOLOGY METHOD 11/19/2024 5:43 PM [facility] Monocytes Relative 8.5 % LAB HEMETOLOGY METHOD 11/19/2024 5:43 PM [facility] Eosinophils Relative 2.1 % LAB HEMETOLOGY METHOD 11/19/2024 5:43 PM [facility] Basophils Relative 0.9 % LAB HEMETOLOGY METHOD 11/19/2024 5:43 PM [facility] Immature Granulocytes Relative 0.2 % LAB HEMETOLOGY METHOD 11/19/2024 5:43 PM [facility] Neutrophils Absolute 3.90 1.50 - 7.00 K/mcL LAB HEMETOLOGY METHOD [facility]/19[facility]2024 5[facility] Lymphocytes Absolute 1.17 1.00 - 5.00 K/mcL LAB HEMETOLOGY METHOD 11/19/2024 5:43 PM [facility] Monocytes Absolute 0.49 0.20 - 1.00 K/mcL LAB HEMETOLOGY METHOD 11/19/2024 5:43 PM [facility] Eosinophils Absolute 0.12 0.00 - 0.50 K/[facility] LAB HEMETOLOGY METHOD 11/19/2024 5:43 PM EDT [facility] Basophils Absolute 0.05 0.00 - 0.20 K/[facility] LAB HEMETOLOGY METHOD 11/19/2024 5:43 PM EDT [facility] Immature Granulocytes Absolute 0.01 0.00 - 0.03 K/[facility] HEMETOLOGY METHOD 11/19/2024 5:43 PM EDT [facility] Blood Venous blood specimen / Unknown Venipuncture / Unknown 11/19/2024 3:08 PM EDT 11/19/2024 4:43 PM EDT Ev Grullon MD LAB BLOOD ORDERABLE S Final Result [facility]) [facility] [address] [place] [address], * CT LUNG SCREENING LOW DOSE (04/29/2024 11:18 AM EDT) Anatomical Region Laterality Modality Computed Tomogra phy 04/28/2024 4:58 PM EDT Narrative 04/29/2024 11:18 AM EDT [facility] Diagnostic Imaging Department [address] [place] [address] Patient: ??MIOL CRENSHAW ?/Age/Sex: 1955 - 68 - M Unit#: ??[id number] ? Location/Status: ??SPDICATLS/REG CLI ? Mnemonic/Ordering Site: ??[facility]/SPCT Ordering Physician: ??RENNY LEDEZMA MD CT Lung Screening Low Dose - 04/28/24 - 1702 Report Status:Signed EXAMINATION: CT chest the lung screening low-dose. CLINICAL INDICATIONS: Current smoker. COMPARISON: CT lung screening 02/07/2023 and 01/29/2022. TECHNIQUE: 2.5 mm thin axial and reformatted 3 mm thin sagittal and coronal images of chest were obtained without contrast. Scanner: [employer] 64 slice VCT Dose reduction technique: ASIR [...] Procedure Note Rosanna Thakkar MD - 05/18/2024 [facility] Diagnostic Imaging Department [address] [place] [address] Patient: MILO CRENSHAW /Age/Sex: 1955 - 68 - M Unit#: [id number] Location/Status: SPDICATLS/REG CLI Mnemonic/Ordering Site: [facility] Ordering Physician: RENNY LEDEZMA MD CT Lung Screening Low Dose - 04/28/24 - 1701 Report Status:Signed EXAMINATION: CT chest the lung screening low-dose. CLINICAL INDICATIONS: Current smoker. COMPARISON: CT lung screening 02/07/2023 and 01/29/2022. TECHNIQUE: 2.5 mm thin axial and reformatted 3 mm thin sagittal andcoronal images of chest were obtained without contrast. Scanner: [employer] 64slice VCT Dose reduction technique: ASIR (Adaptive [...] No evidence of AAA. Mahi Latif DO IM US PROCEDURES Edited Result - Final from Last 3 Months or Most Recently Relevant to Health Maintenance Insurance MEDICARE [facility] [place] [id number] Care Teams Clerk Relationship Specialty Start Date End Date Karolina Abdul PA [address] [place] [address], [address] [place] [address] PCP - General 11/19/24
--- OUTSIDE RECORDS SUMMARY | 2024-11-22 14:53 | XMS_ITS | Clinical Summary ---
Author Organization [facility] Address [address] [place] [address] Care Team Providers Care Videogame Designer Name Role Phone Bhavya Mahi MONTGOMERY Primary Care Provider [phone] Allergies No known active allergies Medications Medication [...] age to complete this topic Care Teams Videogame Designer Relationship Specialty Start Date End Date Mahi Latif DO [address] [place] [id number] PCP - General Family Medicine 10/11/22
== END 2024-11-22 14:21 | disposition home or self-care (01) ==
DX: J44.9 Chronic obstructive pulmonary disease, unspecified (principal); E29.1 Testicular hypofunction; C62.90 Malignant neoplasm of unspecified testis, unspecified whether descended or undescended; Z98.1 Arthrodesis status; I65.23 Occlusion and stenosis of bilateral carotid arteries; F17.200 Nicotine dependence, unspecified, uncomplicated; I10 Essential (primary) hypertension; I35.0 Nonrheumatic aortic (valve) stenosis

== ENCOUNTER → 2024-11-22 13:24 | Outpatient (BNVA) | payer OTHER, SELFPAY | PROVIDERS: PCP Internal Medicine | DX: E29.1 Testicular hypofunction (principal); I65.23 Occlusion and stenosis of bilateral carotid arteries; J44.9 Chronic obstructive pulmonary disease, unspecified; I10 Essential (primary) hypertension; I35.0 Nonrheumatic aortic (valve) stenosis; C62.90 Malignant neoplasm of unspecified testis, unspecified whether descended or undescended; F17.210 Nicotine dependence, cigarettes, uncomplicated; Z79.899 Other long term (current) drug therapy; Z90.79 Acquired absence of other genital organ(s); Z98.1 Arthrodesis status | CPT/HCPCS: 96127 ==

== ENCOUNTER 2024-11-26 11:31 | Outpatient (AMB) | payer OTHER, SELFPAY ==
--- NOTE | 2024-11-26 11:52 | A.SPINEOV_ITS ---
Intake Visit Reasons: 2nd post op with Xrays Intake Note: Mr. Soto is here today for his 2nd post op with x-rays. Property Officer Required: No Allergies bee pollen [bee stings] Allergy (Intermediate, Verified 11/26/24 11:54) Swelling Assessment & Plan Assessment & Plan (1) S/P lumbar fusion: Code(s): Z98.1 - Arthrodesis status Category: Medical Plan Mr Soto is two months out from his L3-4 oblique lumbar interbody fusion. He has had complete relief of his right leg pain. No back pain to speak of. Overall surgeries been quite successful. He is still limiting his activities as we have recommended. He does like to golf and he is very curious about this but I told him that at this point I am not comfortable with that as it still early in the process of surgery recovery. His wounds have healed up nicely. His x- rays look great. Obviously still has a degenerative scoliosis above his fusion site, but the intended target of surgery to fix the leg pain has been addressed. I would like to see him back in 1 month with another set of x-rays and at that time if he is doing okay we can talk about very slowly starting some golf activities. Jeremy Garces MD, PhD [facility] Orders: Orders XR lumbar spine 4V min Today Z98.1 - Arthrodesis status XR lumbar spine 4V min Today Z98.1 - Arthrodesis status Coding Level of Care Code Global (28264) Diagnoses S/P lumbar fusion Z98.1
--- OUTSIDE RECORDS SUMMARY | 2024-11-26 11:59 | XMS_ITS | Clinical Summary ---
Author Organization [facility] Address [address] [place] [address] Care Team Providers Care Supervisor Accounts Receivable Name Role Phone Bhavya Mahi MONTGOMERY Primary Care Provider [phone] Allergies No known active allergies Medications Medication [...] age to complete this topic Care Teams Supervisor Accounts Receivable Relationship Specialty Start Date End Date Mahi Latif DO [address] [place] [address] PCP - General Family Medicine 10/11/22
--- OUTSIDE RECORDS SUMMARY | 2024-11-26 11:59 | XMS_ITS | Clinical Summary ---
Author Organization [facility] Address [address] [place] [address] Phone Care Team Providers Care Patrol Judge Name Role Phone Karolina Abdul Primary Care Provider [phone] Allergies No known active allergies Medications aspirin [...] Low folate 08/10/2020 Essential hypertension 10/20/2017 Thrombocytopenia ([facility] V24) 10/20/2017 Encounters Date Type Department Care Team Description 11/19/2024 2:45 PM EDT Office Visit [facility] Hematology Oncology [address] [place] [phone] Ev Butcher MD Thrombocytopenia ([facility] V24) (Primary Dx) from Last 3 Months Surgical History Surgery Date Site/Laterality Comments OTHER SURGICAL HISTORY PROCEDURE: [place] LAPAROSCOPY SURGICAL ORCHIECTOMY; COMMENT: bilateral, 1980s HAND [...] hypertension COPD (chronic obstructive pu lmonary disease) ([facility] V24, [facility] V28) 09/16/2023 DX:COPD (chronic o bstructive pulmonary disease) ([facility]) Coronary artery calcificatio n seen on [...] DIFFERENTIAL Routine 11/19/2024 3:08 PM EDT Thrombocytopenia ([facility] V24) VITAMIN B12 AND FOLATE Routine 11/19/2024 3:08 PM EDT Thrombocytopenia ([facility] V24) CBC AND DIFFERENTIAL Routine 11/19/2024 3:08 PM EDT Thrombocytopenia ([facility] V24) CT LUNG SCREENING LOW DOSE [...] Final Result [facility] [address] [place] [address], * (ABNORMAL) CBC auto differential (11/19/2024 3:08 PM EDT) [facility] WBC 5.7 4.8 - 10.8 K/mcL [...] [place] LAB HEMETOLOGY METHOD 11/19/2024 5:43 [facility] NRBC 0.0 <1.0 % LAB HEMETOLOGY METHOD 11/19/2024 5:43 [facility] NRBC Absolute 0.00 <0.10 K/mcL LAB HEMETOLOGY METHOD 11/19/2024 5:43 PM [facility] Neutrophils Relative 67.9 % LAB HEMETOLOGY METHOD 11/19/2024 5:43 PM [facility] Lymphocytes Relative 20.4 % LAB HEMETOLOGY METHOD 11/19/2024 5:43 PM [facility] Monocytes Relative 8.5 % LAB HEMETOLOGY METHOD 11/19/2024 5:43 PM [facility] Eosinophils Relative 2.1 % LAB HEMETOLOGY METHOD 11/19/2024 5:43 PM [facility] Basophils Relative 0.9 % LAB HEMETOLOGY METHOD 11/19/2024 5:43 PM [facility] Immature Granulocytes Relative 0.2 % LAB HEMETOLOGY METHOD 11/19/2024 5:43 PM [facility] Neutrophils Absolute 3.90 1.50 - 7.00 K/mcL LAB HEMETOLOGY METHOD 11/19/2024 5:43 PM [facility] Lymphocytes Absolute 1.17 1.00 - 5.00 K/mcL LAB HEMETOLOGY METHOD 11/19/2024 5:43 PM [facility] Monocytes Absolute 0.49 0.20 - 1.00 K/mcL LAB HEMETOLOGY METHOD 11/19/2024 5:43 PM [facility] Eosinophils Absolute 0.12 0.00 - 0.50 K/[facility] LAB HEMETOLOGY METHOD 11/19/2024 5:43 PM EDT [facility] Basophils Absolute 0.05 0.00 - 0.20 K/[facility] LAB HEMETOLOGY METHOD 11/19/2024 5:43 PM EDT [facility] Immature Granulocytes Absolute 0.01 0.00 - 0.03 K/[facility] LAB HEMETOLOGY METHOD 11/19/2024 5:43 PM EDT [facility] Blood Venous blood specimen / Unknown Venipuncture / Unknown 11/19/2024 3:08 PM EDT 11/19/2024 4:43 PM EDT Ev Grullon MD LAB BLOOD ORDERABLE S Final Result [facility]) [facility] [address] [place] [address], * CT LUNG SCREENING LOW DOSE (04/29/2024 11:18 AM EDT) Anatomical Region Laterality Modality Computed Tomogra phy 04/28/2024 4:58 PM EDT Narrative 04/29/2024 11:18 AM EDT [facility] Diagnostic Imaging Department [address] [place] [address] Patient: ??MILO CRENSHAW ?/Age/Sex: 1955 - 68 - M Unit#: ??[id number] ? Location/Status: ??SPDICATLS/REG CLI ? Mnemonic/Ordering Site: ??CTLUNGLD/SPCT Ordering Physician: ??RENNY LEDEZMA MD CT Lung Screening Low Dose - 04/28/24 - 1702 Report Status:Signed EXAMINATION: CT chest the lung screening low-dose. CLINICAL INDICATIONS: Current smoker. COMPARISON: CT lung screening 02/07/2023 and 01/29/2022. TECHNIQUE: 2.5 mm thin axial and reformatted 3 mm thin sagittal and coronal images of chest were obtained without contrast. Scanner: [employer] 64 slice VCT Dose reduction technique: ASIR [...] Procedure Note Rosanna Thakkar MD - 05/18/2024 [facility] Diagnostic Imaging Department [address] [place] [address] Patient: MILO CRENSHAW /Age/Sex: 1955 - 68 - M Unit#: [id number] Location/Status: SPDICATLS/REG CLI Mnemonic/Ordering Site: [facility] Ordering Physician: RENNY LEDEZMA MD CT Lung Screening Low Dose - 04/28/24 - 1701 Report Status:Signed EXAMINATION: CT chest the lung screening low-dose. CLINICAL INDICATIONS: Current smoker. COMPARISON: CT lung screening 02/07/2023 and 01/29/2022. TECHNIQUE: 2.5 mm thin axial and reformatted 3 mm thin sagittal andcoronal images of chest were obtained without contrast. Scanner: [employer] 64slice VCT Dose reduction technique: ASIR (Adaptive [...] to Health Maintenance Insurance MEDICARE [facility] [place] [place] [id number] Care Teams Patrol Judge Relationship Specialty Start Date End Date Karolina Abdul PA [address] [place] [address], [address] [place] [address] PCP - General 11/19/24
== END 2024-11-26 12:31 | disposition home or self-care (01) ==
LOC: HO.HNS 11:32
PROVIDERS: PCP Internal Medicine; Visit Provider Physician Assistant
DX: Z98.1 Arthrodesis status (principal)
CPT/HCPCS: 99024

== ENCOUNTER 2024-11-26 11:31 | Outpatient (REF) | payer OTHER, SELFPAY ==
--- NOTE | ~2024-11-26 | XR_ITS ---
EXAMINATION: X-ray lumbar spine 4 views minimal. CLINICAL INFORMATION: Arthrodesis status. TECHNIQUE: AP and lateral views neutral position and flexion and extension position. COMPARISON: May 28, 2024. FINDINGS: Metallic transpedicle screws at L3 and L4, bilaterally and status post intervertebral disc spacer placement at L3-4. No gross malalignment in neutral nor flexion or extension position. Multilevel thoracolumbar spondylosis and levoconvex rotoscoliosis apex at L1-2. Prominent transverse processes of L5. Vascular calcifications, aorta. XR/XR lumbar spine 4V min IMPRESSION: Status post posterior lumbar fusion and intervertebral disc spacer placement at L3-4 without gross instability. Electronically signed by: Cheikh Dee MD 11/26/2024 12:16 PM EDT
--- OUTSIDE RECORDS SUMMARY | 2024-11-26 12:21 | XMS_ITS | Clinical Summary ---
Author Organization [facility] Address [address] [place] [address] Phone Care Team Providers Care Senior Microsoft Consultant Name Role Phone Karolina Abdul Primary Care Provider Allergies No known active allergies Medications aspirin [...] Low folate 08/10/2020 Essential hypertension 10/20/2017 Thrombocytopenia ([facility] V24) 10/20/2017 Encounters Date Type Department Care Team Description 11/19/2024 2:45 PM EDT Office Visit [facility] Hematology Oncology [address] [place] [phone] Ev Butcher MD Thrombocytopenia ([facility] V24) (Primary Dx) from Last 3 Months Surgical History Surgery Date Site/Laterality Comments OTHER SURGICAL HISTORY PROCEDURE: [place] LAPAROSCOPY SURGICAL ORCHIECTOMY; COMMENT: bilateral, 1980s HAND [...] hypertension COPD (chronic obstructive pu lmonary disease) ([facility] V24, [facility] V28) 09/16/2023 DX:COPD (chronic o bstructive pulmonary disease) ([facility]) Coronary artery calcificatio n seen on CAT [...] DIFFERENTIAL Routine 11/19/2024 3:08 PM EDT Thrombocytopenia ([facility] V24) VITAMIN B12 AND FOLATE Routine 11/19/2024 3:08 PM EDT Thrombocytopenia ([facility] V24) CBC AND DIFFERENTIAL Routine 11/19/2024 3:08 PM EDT Thrombocytopenia ([facility] V24) CT LUNG SCREENING LOW DOSE Routine [...] LAB CHEMISTRY METHOD 11/19/2024 5:34 PM EDT [facility] Folate >20.0(H) 2.8 - 17.0 ng/ml LAB CHEMISTRY METHOD 11/19/2024 5:34 PM EDT [facility] Blood Venous blood specimen / Unknown Venipuncture / Unknown 11/19/2024 3:08 PM EDT 11/19/2024 4:43 PM EDT Ev Grullon MD LAB BLOOD ORDERABLE S Final Result [facility] [address] [place] [address], * (ABNORMAL) CBC auto differential (11/19/2024 3:08 PM EDT) [facility] WBC 5.7 4.8 - 10.8 K/mcL LAB HEMETOLOGY METHOD 11/19/2024 5:43 PM EDT [facility] RBC 3.40(L) 4.50 - 5.50 M/mcL LAB HEMETOLOGY METHOD 11/19/2024 5:43 PM EDT [facility] Hemoglobin 11.1(L) 13.5 - 17.5 g/dL LAB HEMETOLOGY METHOD 11/19/2024 5:43 PM EDT [facility] Hematocrit 33.6(L) 42.0 - 54.0 % LAB HEMETOLOGY METHOD 11/19/2024 5:43 PM EDT [facility] MCV 98.2(H) 79.0 - 98.0 FL LAB HEMETOLOGY METHOD 11/19/2024 5:43 PM EDT [facility] MCH 32.5(H) 27.0 - 32.0 pcg LAB HEMETOLOGY METHOD 11/19/2024 5:43 PM EDT [facility] MCHC 33.0 32.0 - 37.0 g/dL LAB HEMETOLOGY METHOD 11/19/2024 5:43 PM EDT [facility] RDW 14.0 11.0 - 15.0 % LAB HEMETOLOGY METHOD 11/19/2024 5:43 PM EDT [facility] Platelets 68(L) 130 - 400 K/mcL LAB HEMETOLOGY METHOD 11/19/2024 5:43 PM EDT [facility] Comment:reviewed by slide MPV 11.3(H) 7.0 - 11.0 FL LAB HEMETOLOGY METHOD 11/19/2024 5:43 [facility] NRBC 0.0 <1.0 % LAB HEMETOLOGY METHOD 11/19/2024 5:43 PM [facility] NRBC Absolute 0.00 <0.10 K/mcL LAB HEMETOLOGY METHOD 11/19/2024 5:43 PM [facility] Neutrophils Relative 67.9 % LAB HEMETOLOGY METHOD 11/19/2024 5:43 PM [facility] Lymphocytes Relative 20.4 % LAB HEMETOLOGY METHOD 11/19/2024 5:43 PM [facility] Monocytes Relative 8.5 % LAB HEMETOLOGY METHOD 11/19/2024 5:43 PM [facility] Eosinophils Relative 2.1 % LAB HEMETOLOGY METHOD 11/19/2024 5:43 PM [facility] Basophils Relative 0.9 % LAB HEMETOLOGY METHOD 11/19/2024 5:43 PM [facility] Immature Granulocytes Relative 0.2 % LAB HEMETOLOGY METHOD 11/19/2024 5:43 PM [facility] Neutrophils Absolute 3.90 1.50 - 7.00 K/mcL LAB HEMETOLOGY METHOD 11/19/2024 5:43 PM [facility] Lymphocytes Absolute 1.17 1.00 - 5.00 K/mcL LAB HEMETOLOGY METHOD 11/19/2024 5:43 PM [facility] Monocytes Absolute 0.49 0.20 - 1.00 K/mcL LAB HEMETOLOGY METHOD 11/19/2024 5:43 PM [facility] Eosinophils Absolute 0.12 0.00 - 0.50 K/[facility] LAB HEMETOLOGY METHOD 11/19/2024 5:43 PM EDT [facility] Basophils Absolute 0.05 0.00 - 0.20 K/[facility] LAB HEMETOLOGY METHOD 11/19/2024 5:43 PM EDT [facility]) [facility] Immature Granulocytes Absolute 0.01 0.00 - 0.03 K/[facility] LAB HEMETOLOGY METHOD 11/19/2024 5:43 PM EDT [facility] Blood Venous blood specimen / Unknown Venipuncture / Unknown 11/19/2024 3:08 PM EDT 11/19/2024 4:43 PM EDT Ev Grullon MD LAB BLOOD ORDERABLE S Final Result [facility]) [facility] [address] [place] [address], * CT LUNG SCREENING LOW DOSE (04/29/2024 11:18 AM EDT) Anatomical Region Laterality Modality Computed Tomogra phy 04/28/2024 4:58 PM EDT Narrative 04/29/2024 11:18 AM EDT [facility] Diagnostic Imaging Department [address] [place] [address] Patient: ??MILO CRENSHAW ?/Age/Sex: 1955 - 68 - M Unit#: ??[id number] ? Location/Status: ??SPDICATLS/REG CLI ? Mnemonic/Ordering Site: ??CTLUNGLD/SPCT Ordering Physician: ??RENNY LEDEZMA MD CT Lung Screening Low Dose - 04/28/24 - 1702 Report Status:Signed EXAMINATION: CT chest the lung screening low-dose. CLINICAL INDICATIONS: Current smoker. COMPARISON: CT lung screening 02/07/2023 and 01/29/2022. TECHNIQUE: 2.5 mm thin axial and reformatted 3 mm thin sagittal and coronal images of chest were obtained without contrast. Scanner: [employer] 64 slice VCT Dose reduction technique: ASIR [...] Procedure Note Rosanna Thakkar MD - 05/18/2024 [facility] Diagnostic Imaging Department [address] [place] [address] Patient: MILO CRENSHAW /Age/Sex: 1955 - 68 - M Unit#: [id number] Location/Status: SPDICATLS/REG CLI Mnemonic/Ordering Site: [facility] Ordering Physician: RENNY LEDEZMA MD CT Lung Screening Low Dose - 04/28/24 - 1701 Report Status:Signed EXAMINATION: CT chest the lung screening low-dose. CLINICAL INDICATIONS: Current smoker. COMPARISON: CT lung screening 02/07/2023 and 01/29/2022. TECHNIQUE: 2.5 mm thin axial and reformatted 3 mm thin sagittal andcoronal images of chest were obtained without contrast. Scanner: [employer] 64slice VCT Dose reduction technique: ASIR (Adaptive [...] to Health Maintenance Insurance MEDICARE [employer] [facility] [id number] Care Teams Senior Microsoft Consultant Relationship Specialty Start Date End Date Karolina Abdul PA [address] [place] [address], [address] [place] [address] PCP - General 11/19/24
--- OUTSIDE RECORDS SUMMARY | 2024-11-26 12:21 | XMS_ITS | Clinical Summary ---
Author Organization [facility] Address [address] [place] [address] Care Team Providers Care Frequency Checker Name Role Phone Bhavya Mahi MONTGOMERY Primary Care Provider [phone] Allergies No known active allergies Medications Medication [...] age to complete this topic Care Teams Frequency Checker Relationship Specialty Start Date End Date Mahi Latif DO [address] [place] [id number] PCP - General Family Medicine 10/11/22
== END 2024-11-26 11:32 | disposition home or self-care (01) ==
LOC: HO.HOSX 11:31
PROVIDERS: PCP Internal Medicine; Visit Provider Physician Assistant
DX: Z98.1 Arthrodesis status (principal)
CPT/HCPCS: 72110

== ENCOUNTER → 2024-11-26 12:04 | Outpatient (BNV) | payer OTHER, SELFPAY | PROVIDERS: PCP Internal Medicine; Visit Provider Radiology Diagnostic Radiology | DX: Z98.1 Arthrodesis status (principal) | CPT/HCPCS: 72110 ==

== ENCOUNTER 2024-12-24 11:36 | Outpatient (AMB) | payer OTHER, SELFPAY ==
--- NOTE | 2024-12-24 11:57 | A.SPINEOV_ITS ---
Intake Visit Reasons: 1 month f/u with Xrays Intake Note: Mr. Soto is here today for a 1 month F/u with xrays. Ornamental Plaster Sticker Required: No Allergies bee pollen [bee stings] Allergy (Intermediate, Verified 11/26/24 11:54) Swelling Assessment & Plan Assessment & Plan (1) Scoliosis (and kyphoscoliosis), idiopathic: Code(s): M41.20 - Other idiopathic scoliosis, site unspecified Category: Medical Plan Mr Soto is just under 3 months out from his oblique lumbar interbody fusion L3-4. He has been doing fairly well in terms of back pain. He came in today for him to get a set of x-rays and to see if we could discuss potentially doing any increase in his activity level for the summer. His x-rays look great. We talked about slowly increasing his activity. He is curious about starting golfing, I told him to go very slow and just start with some small irons in his put her into that for a month or so see how it feels but no big swings, no snaker tractor driver or big clubs. I would like to see him back in 3-6 months just to follow- up and check in on him. Jeremy Garces MD, PhD [facility] Coding Level of Care Code Global (31552) Diagnoses Scoliosis (and kyphoscoliosis), idiopathic M41.20
== END 2024-12-24 12:10 | disposition home or self-care (01) ==
LOC: HO.HNS 11:37
PROVIDERS: PCP Internal Medicine; Visit Provider Physician Assistant
DX: M41.20 Other idiopathic scoliosis, site unspecified (principal)
CPT/HCPCS: 99024

== ENCOUNTER → 2024-12-24 11:49 | Outpatient (BNV) | payer OTHER, SELFPAY | PROVIDERS: Visit Provider Radiology Diagnostic Radiology | DX: Z98.1 Arthrodesis status (principal) | CPT/HCPCS: 72110 ==

== ENCOUNTER 2024-12-24 12:24 | Outpatient (REF) | payer OTHER, SELFPAY ==
--- NOTE | ~2024-12-24 | XR_ITS ---
CLINICAL HISTORY: Z98.1 - Arthrodesis status --- Additional Notes or Special Instructions: standing, a p, lateral with flex ext views 4 views lumbar spine Comparison: DX/SR - XR LUMBAR SPINE 4V MIN - 11/26/24 12:04 EDT Findings: L3-4 posterior fusion and interbody metallic disc spacer are again seen. There is stable satisfactory alignment with straightening of the normal lordosis. Moderate levoscoliosis with the apex L2. No acute fractures or dislocation. No significant vertebral body compression deformity. Advanced disc and facet degenerative changes. Prominent aortic calcifications. IMPRESSION: 1. No malalignment or instability. 2. Stable postsurgical changes. This document has been electronically signed by: Loreta Darden DO on 12/24/2024 15:04:04
--- OUTSIDE RECORDS SUMMARY | 2024-12-24 08:45 | XMS_ITS | Clinical Summary ---
Author Organization [facility] Address [address] [place] [address] Phone Care Team Providers Care Inseam Trimming Machine Operator Name Role Phone Karolina Abdul Primary Care Provider [phone] Allergies No known active allergies Medications aspirin [...] ONCE DAILY 90 tablet 1 08/02/2024 Active pregabalin (LYRICA) 100 mg capsule Take 1 capsule (100 mg total) by mouth 3 (three) times a day. Max Daily Amount: 300 mg Active Active Problems Problem Noted Date Diagnosed Date Testosterone deficiency 11/14/2023 Weight loss 11/14/2023 Low folate 08/10/2020 Essential hypertension 10/20/2017 Thrombocytopenia (CMS/HCC V24) 10/20/2017 Encounters Date Type Department Care Team Description 11/19/2024 2:45 PM EDT Office Visit [facility] Hematology Oncology [address] [place] [address] Ev Butcher MD Thrombocytopenia ([facility] V24) (Primary Dx) [...] hypertension COPD (chronic obstructive pu lmonary disease) ([facility] V24, [facility] V28) 09/16/2023 DX:COPD (chronic o bstructive pulmonary disease) ([facility]) Coronary artery calcificatio n seen [...] of Health Screening 06/29/2022 COVID-19 Vaccine ( - 2023- season) 2024 08/15/2021, 11/28/2020, 10/31/2020 Hypertension/CHF/CAD Annual [...] DIFFERENTIAL Routine 11/19/2024 3:08 PM EDT Thrombocytopenia ([facility] V24) VITAMIN B12 AND FOLATE Routine 11/19/2024 3:08 PM EDT Thrombocytopenia ([facility] V24) CBC AND DIFFERENTIAL Routine 11/19/2024 3:08 PM EDT Thrombocytopenia ([facility] V24) CT LUNG SCREENING LOW DOSE [...] Final Result [facility] [address] [place] [address], * (ABNORMAL) CBC auto differential (11/19/2024 3:08 PM EDT) WBC 5.7 4.8 - 10.8 K/mcL LAB [...] 5:43 PM EDT [facility] NRBC 0.0 <1.0 % LAB HEMETOLOGY METHOD 11/19/2024 5:43 PM [facility] NRBC Absolute 0.00 <0.10 K/mcL LAB HEMETOLOGY METHOD 11/19/2024 5:[facility] Neutrophils Relative 67.9 % LAB [...] PM [facility] Lymphocytes Absolute 1.17 1.00 - 5.00 K/mcL LAB HEMETOLOGY METHOD 11/19/2024 5:43 PM [facility] Monocytes Absolute 0.49 0.20 - 1.00 K/mcL LAB HEMETOLOGY METHOD 11/19/2024 5:43 PM [facility] Eosinophils Absolute 0.12 0.00 - 0.50 K/mcL LAB HEMETOLOGY METHOD 11/19/2024 5:43 PM EDT [facility] Basophils Absolute 0.05 0.00 - 0.20 K/mcL LAB HEMETOLOGY METHOD 11/19/2024 5:43 PM EDT [facility] Immature Granulocytes Absolute 0.01 0.00 - 0.03 K/[facility] LAB HEMETOLOGY METHOD 11/19/2024 5:43 PM EDT [facility] Blood Venous blood specimen / Unknown Venipuncture / Unknown 11/19/2024 3:08 PM EDT 11/19/2024 4:43 PM EDT Ev Grullon MD LAB BLOOD ORDERABLE S Final Result [facility]) [facility] [address] [place] [address], * CT LUNG SCREENING LOW DOSE (04/29/2024 11:18 AM EDT) Anatomical Region Laterality Modality Computed Tomogra phy 04/28/2024 4:58 PM EDT Narrative 04/29/2024 11:[address] [facility] Diagnostic Imaging Department [address] [place] [address] Patient: ??MILO CRENSHAW ?/Age/Sex: 1955 - 68 - M Unit#: ??[id number] ? Location/Status: ??SPDICATLS/REG CLI ? Mnemonic/Ordering Site: ??CTLUNGLD/SPCT Ordering Physician: ??RENNY LEDEZMA MD CT Lung Screening Low Dose - 04/28/24 - 1702 Report Status:Signed EXAMINATION: CT chest the lung screening low-dose. CLINICAL INDICATIONS: Current smoker. COMPARISON: CT lung screening 02/07/2023 and 01/29/2022. TECHNIQUE: 2.5 mm thin axial and reformatted 3 mm thin sagittal and coronal images of chest were obtained without contrast. Scanner: [employer] 64 slice VCT Dose reduction technique: ASIR [...] Procedure Note Rosanna Thakkar MD - 05/18/2024 [facility] Diagnostic Imaging Department [address] [place], [place] [id number] Patient: MILO CRENSHAW /Age/Sex: 1955 - 68 - M Unit#: [id number] Location/Status: SPDICATLS/REG CLI Mnemonic/Ordering Site: [facility] Ordering Physician: RENNY LEDEZMA MD CT Lung Screening Low Dose - 04/28/24 - 1702 Report Status:Signed EXAMINATION: CT chest the lung screening low-dose. CLINICAL INDICATIONS: Current smoker. COMPARISON: CT lung screening 02/07/2023 and 01/29/2022. TECHNIQUE: 2.5 mm thin axial and reformatted 3 mm thin sagittal andcoronal images of chest were obtained without contrast. Scanner: [employer] 64slice VCT Dose reduction technique: ASIR (Adaptive [...] No evidence of AAA. Mahi Latif DO [facility] US PROCEDURES Edited Result - Final from Last 3 Months or Most Recently Relevant to Health Maintenance Insurance MEDICARE [facility] [place] [id number] Care Teams Inseam Trimming Machine Operator Relationship Specialty Start Date End Date Karolina Abdul PA [address] [place] [address], [address] [place], [place] [phone] PCP - General 11/19/24
== END 2024-12-24 12:25 | disposition home or self-care (01) ==
LOC: HO.HOSX 12:24
PROVIDERS: Visit Provider Physician Assistant
DX: Z98.1 Arthrodesis status (principal); M41.20 Other idiopathic scoliosis, site unspecified
CPT/HCPCS: 72110

== ENCOUNTER 2025-02-28 09:03 | Outpatient (REF) | payer OTHER, SELFPAY ==
--- OUTSIDE RECORDS SUMMARY | 2025-02-28 09:30 | XMS_ITS | Clinical Summary ---
Author Organization [facility] Address [address] [place] [address] Care Team Providers Care Leather Production Artisan Name Role Phone Bhavya Mahi MONTGOMERY Primary Care Provider [phone] Allergies No known active allergies Medications Medication [...] 65 11/14/2023 9:04 AM EDT Temperature 36.5 C (97.7 F) 11/14/2023 9:04 AM EDT Respiratory Rate - - Oxygen Saturation 97% [...] Fall Risk Assessment 2018 Influenza Vaccine (#1) 2025 RSV Adult > 60+ Yrs or Pregn ant (1 - 1-dose 75+ series) 2028 Pneumococcal Vaccine Completed 09/16/2023 Hepatitis B Vaccines Aged Out No long er eligible based on patient's age to complete this topic RSV Ped < 20 months Aged Out No longe r eligible based on patient's age to complete this topic Care Teams Leather Production Artisan Relationship Specialty Start Date End Date Mahi Latif DO [address] [place] [address] PCP - General Family Medicine 10/11/22
--- OUTSIDE RECORDS SUMMARY | 2025-02-28 09:30 | XMS_ITS | Clinical Summary ---
Author Organization [facility] Address [address] [place] [address] Phone Care Team Providers Care Hospitality Services Manager Name Role Phone Karolina Abdul Primary Care Provider [phone] Allergies No known active allergies Medications aspirin [...] day. Max Daily Amount: 300 mg Active atorvastatin (LIPITOR) 40 mg tablet Take 1 tablet (40 mg total) by mouth 1 (one) time each day. 90 tablet 01/24/2025 Active Active Problems Problem Noted Date Diagnosed Date Testosterone deficiency 11/14/2023 Weight loss 11/14/2023 Low folate 08/10/2020 Essential hypertension 10/20/2017 Thrombocytopenia (CMS/HCC V24) 10/20/2017 Encounters Date Type Department Care Team Description 01/24/2025 Telephone [facility] [address] [place] [address] Antonia Godoy NP Med Refill (Atorvastatin) from Last 3 Months Surgical History Surgery Date Site/Laterality Comments OTHER SURGICAL HISTORY PROCEDURE: [place] LAPAROSCOPY SURGICAL ORCHIECTOMY; COMMENT: bilateral, 1980s HAND [...] hypertension COPD (chronic obstructive pu lmonary disease) (CMS/HCC V24, CMS/HCC V28) 09/16/2023 DX:COPD (chronic o bstructive pulmonary disease) ([facility]) Coronary artery calcificatio n seen on [...] 86 11/19/2024 2:52 PM EDT Temperature 36.7 C (98 F) 11/19/2024 2:52 PM EDT Respiratory Rate - [...] Panel) 06/29/2022 Colorectal Cancer Screening: Colonoscopy 06/29/2022 Falls Risk Assessment 06/29/2022 Hepatitis C Screening 06/29/2022 Social Influencers of Health Screening 06/29/2022 COVID-19 Vaccine ( - season) 2024 08/15/2021, 11/28/2020, 10/31/2020 Depression Screening 07/21/2024 Hypertension/CHF/CAD Annual BMP Blood Test 01/19/2025 01/20/2024, 12/22/2023 Influenza Vaccine (#1) 2025 Lung Cancer Screening (Low Dose CT) [...] EDT Narrative 04/29/2024 11:[address] [facility] Diagnostic Imaging Department [address] [place], [place] [id number] Patient: MILO CRENSHAW D.O.B./Age/Sex: 1955 - 68 - M Unit#: [id number] Location/Status: [facility]/REG CLI Mnemonic/Ordering Site: [facility] Ordering Physician: RENNY LEDEZMA MD CT Lung Screening Low Dose - 04/28/24 - 1702 Report Status:Signed EXAMINATION: CT chest the lung screening low-dose. CLINICAL INDICATIONS: Current smoker. COMPARISON: CT lung screening 02/07/2023 and 01/29/2022. TECHNIQUE: 2.5 mm thin axial and reformatted 3 mm thin sagittal and coronal images of chest were obtained without contrast. Scanner: [employer] 64 slice VCT Dose reduction technique: ASIR [...] Date/Time: 04/29/24 1110 Sign date/Time: 04/29/24 1118 Procedure Note Rosanna Thakkar MD - 05/18/2024 [facility] Diagnostic Imaging Department [address] [place] [id number] Patient: MILO CRENSHAW./Age/Sex: 1955 - 68 - M Unit#: [id number] Location/Status: [facility]/REG CLI Mnemonic/Ordering Site: [facility] Ordering Physician: RENNY LEDEZMA MD CT Lung Screening Low Dose - 04/28/24 - 1702 Report Status:Signed EXAMINATION: CT chest the lung screening low-dose. CLINICAL INDICATIONS: Current smoker. COMPARISON: CT lung screening 02/07/2023 and 01/29/2022. TECHNIQUE: 2.5 mm thin axial and reformatted 3 mm thin sagittal andcoronal images of chest were obtained without contrast. Scanner: [employer] 64slice VCT Dose reduction technique: ASIR (Adaptive [...] Date/Time: 04/29/24 1110 Sign date/Time: 04/29/24 1118 us Renny Ledezma MD IM CT PROCEDURES Final Result * US ABDOMINAL AORTA REAL TIME SCREEN STUDY AAA (08/13/2021 9:27 AM EST) Anatomical Region Laterality Modality Ultrasound 08/06/2021 11:3 6 AM EST Narrative 08/13/2021 9:31 AM EST Ultrasound of the abdominal aorta. History AAA screening. There is no abdominal aortic aneurysm. Proximal aorta measures 1.8 cm, mid aorta measures 1.7 cm, distal aorta measures 2 cm. Proximal right common iliac artery measures 0.8 cm. Proximal left common iliac artery [...] 1.1 cm. CONCLUSIONS: No evidence of AAA. us Mahi Latif DO [facility] US PROCEDURES Edited Result - Final from Last 3 Months or Most Recently Relevant to Health Maintenance Insurance MEDICARE [facility] [id number] Care Teams Hospitality Services Manager Relationship Specialty Start Date End Date Karolina Abdul PA [address] [place] [address], [address] [place] [address] PCP - General 11/19/24
[2025-02-28 10:04] LABS: Hemoglobin A1C 92.5808 umol/L; Total Hemoglobin (HGBA1C) 2927.7810 umol/L
[2025-02-28 10:28] LABS: Cholesterol 90 mg/dL (<200); HDL Cholesterol 31 mg/dL (>40); Triglycerides 83 mg/dL (<150)
[2025-02-28 10:57] LABS: Folate 14.2 ng/mL (> or = 4.0); Vitamin B12 542 pg/mL (200-900)
== END 2025-02-28 09:04 | disposition home or self-care (01) ==
LOC: HO.LAB 09:03
DX: Z00.00 Encounter for general adult medical examination without abnormal findings (principal); E78.00 Pure hypercholesterolemia, unspecified; Z13.1 Encounter for screening for diabetes mellitus
CPT/HCPCS: 36415; 80061; 82306; 82607; 82746; 83036

== ENCOUNTER 2025-03-04 14:56 | Outpatient (AMB) | payer OTHER, SELFPAY ==
--- OUTSIDE RECORDS SUMMARY | 2025-03-04 14:58 | XMS_ITS | Clinical Summary ---
Author Organization [facility] Address [address] [place] [address] Phone Care Team Providers Care Creping Machine Operator Name Role Phone Karolina Abdul Primary Care Provider [phone] Allergies No known active allergies Medications aspirin [...] Type Department Care Team Description 01/24/2025 Telephone [facility] [address] [place] [address] Antonia Godoy NP Med Refill (Atorvastatin) from Last 3 Months Surgical History Surgery Date Site/Laterality Comments OTHER SURGICAL HISTORY PROCEDURE: [place] LAPAROSCOPY SURGICAL ORCHIECTOMY; COMMENT: bilateral, 1980s HAND [...] 09/16/2023 DX:COPD (chronic o bstructive pulmonary disease) ([facility]) Coronary artery calcificatio n seen [...] Used Date Smoking Tobacco: Every Day Cigarettes 1 49.6 Started: 1975 Smokeless Tobacco: Never Alcohol Use Standard Drinks/Week [...] 11/19/2024 2:52 PM EDT Plan of Treatment Upcoming Encounters Date Type Department Care Team (Late st Contact Info) Description 04/29/2025 11:45 AM EDT Appointment [facility] CT Scan [address] [place] [address] Health Maintenance Due Date Last [...] PM EDT Narrative 04/29/2024 11:18 AM EDT [facility] Diagnostic Imaging Department [address] [place], [place] [id number] Patient: MILO CRENSHAW /Age/Sex: 1955 - 68 - M Unit#: [id number] [facility] Mnemonic[facility]Ordering Site: [facility] Ordering Physician: RENNY LEDEZMA MD CT Lung Screening Low Dose - 04/28/24 - 1702 Report Status:Signed EXAMINATION: CT chest the lung screening low-dose. CLINICAL INDICATIONS: Current smoker. COMPARISON: CT lung screening 02/07/2023 and 01/29/2022. TECHNIQUE: 2.5 mm thin axial and reformatted 3 mm thin sagittal and coronal images of chest were obtained without contrast. Scanner: [email or web address] 64 slice VCT Dose reduction technique: ASIR [...] Procedure Note Rosanna Thakkar MD - 05/18/2024 [facility] Diagnostic Imaging Department [address] [place] [id number] Patient: MILO CRENSHAW /Age/Sex: 1955 - 68 - M Unit#: [id number] Location/Status: [facility]/REG CLI Mnemonic/Ordering Site: [facility] Ordering Physician: RENNY LEDEZMA MD CT Lung Screening Low Dose - 04/28/24 - 1702 Report Status:Signed EXAMINATION: CT chest the lung screening low-dose. CLINICAL INDICATIONS: Current smoker. COMPARISON: CT lung screening 02/07/2023 and 01/29/2022. TECHNIQUE: 2.5 mm thin axial and reformatted 3 mm thin sagittal andcoronal images of chest were obtained without contrast. Scanner: [email or web address] 64slice VCT Dose reduction technique: ASIR (Adaptive [...] 04/29/24 1110 Sign date/Time: 04/29/24 1118 Renny eLdezma MD IM CT PROCEDURES Final Result * [...] No evidence of AAA. Mahi Latif DO [facility] [place]EDURES Edited Result - Final from Last 3 Months or Most Recently Relevant to Health Maintenance Insurance MEDICARE [facility] [place] [id number] Care Teams Creping Machine Operator Relationship Specialty Start Date End Date Karolina Abdul PA [address] [place] [address], [address] [place] [address] PCP - General 11/19/24
--- OUTSIDE RECORDS SUMMARY | 2025-03-04 14:58 | XMS_ITS | Clinical Summary ---
Author Organization [facility] Address [address] [place] [address] Care Team Providers Care Paint Mixer Name Role Phone Bhavya Mahi MONTGOMERY Primary [...] age to complete this topic Care Teams Paint Mixer Relationship Specialty Start Date End Date Mahi Ltaif DO [address] [place] [address] PCP - General Family Medicine 10/11/22
--- NOTE | 2025-03-04 14:59 | A.OFFPC_ITS ---
Vital Signs 03/04/25 15:01 03/04/25 15:41 Height 5 ft 8.5 in Weight 179 lb 6 oz BMI 26.9 BP 140/62 H 146/68 H Blood Pressure Location Lt brachial Lt brachial Position Sitting Sitting Pulse 96 Pulse Source Pulse Oximeter Pulse Oximetry (%) 98 Oxygen Delivery Method Room Air Intake Visit Reasons: f/u htn Software Sales Representative Required: No Accompanied by: Self / Same As Patient Allergies bee pollen (bee stings) Allergy (Intermediate, Verified 03/04/25 15:25) Swelling Medication List - Last Reconciled 03/04/25 by Karolina Abdul PA-C acetaminophen 1,000 mg PO TID aspirin 81 mg PO DAILY Held on 09/29/24. Instructions: Resume on 10/02/24. atorvastatin 40 mg PO BEDTIME folic acid 1 mg PO DAILY hydrochlorothiazide 12.5 mg PO DAILY losartan 100 mg PO DAILY metoprolol tartrate 25 mg PO BID pregabalin 100 mg PO Q8H testosterone 3 pumps topical QAM 30 days Tobacco use date assessed: 03/04/25 Fall risk assessment: No Falls in past year Last assessed Fall Risk: 03/04/25 Dental Screening Dental Screen Date: 03/04/25 Did you have a dental visit in the last 12 months?: No Did you have a dental problem in the last 6 months where you did not have access to dental care?: No Was dental information given to patient?: No HPI f/u htn HPI Details 69 year old male with past medical histo ry of Aortic stenosis, testicular cancer, HTN, smoker, COPD, carotid stenosis last seen 11/2024 coming in for follow up. Presenting with hypertension management. The patient has a history of elevated blood pressure, with recent readings of 140/70 mmHg and 146/68 mmHg during the visit. Previously, the blood pressure was recorded at 180 mmHg. The patient does not monitor blood pressure at home regularly. The patient reports persistent smita k pain, which is managed with Tylenol and pregabalin. The patient has reduced pregabalin dosage to 100 mg twice a day due to dizziness when taken three times a day. The patient's cholesterol levels are well-controlled with a low-density lipoprotein (LDL) level of 43 mg/dL. The patient is on statin therapy, which is deemed effective. The patient continues to smoke but has reduced the frequency by keeping cigarettes in the truck, making it inconvenient to access them. [facility], [facility] Medical History Thrombocytopenia Aortic stenosis COPD (chronic obstructive pulmonary disease) Smoker HTN (hypertension) Thrombocytopenia Hyperlipidemia Testicular cancer Lymphoma Surgical History History of testicular surgery History of back surgery History of left-sided carotid endarterectomy Hx of cataract extraction Hx of hand surgery Hx of bilateral orchiectomies History of carotid endarterectomy (~09/16/17) Social History Household Members: Spouse Housing: House Housing Other:: duplex home Are you a primary personal care worker to a significant other at home: No Do you presently have visiting nurse or other home services: No Alcohol intake: never Patient Tobacco Use Status: Current everyday Tobacco user Tobacco use type: Cigarette Cigarette Packs Per Day: 0.5 Cigarettes Per Day: 10.0 Years Smoked: 46 e-Cigarette/Vaping Use: Never Used Second Hand Smoke Exposure: Yes Substance Use Type: Marijuana service: No Current occupational status: retired Cognitive needs: No Hearing needs: No Vision needs: Yes (Glasses) Questionnaire Thrive Questionnaire Date Thrive assessed: 03/04/25 I am a: Patient What is your living situation today?: I have a steady place to live Within the past 12 months, did the food you bought not last and you didn't have the money to get more?: Never true Within the past 12 months, did you worry whether your food would run out before you got money to buy more?: Never true Do you have trouble paying for medicines?: No Do you have trouble getting transportation to medical appointments?: No Do you have trouble paying your heating and electricity bill?: No Do you have trouble taking care of your child, family member or friend?: No Do you have trouble with day-to-day activities such as bathing, preparing meals, shopping, managing finances, etc.?: No Are you currently unemployed and looking for a job?: No Are you interested in more education?: No Please select the resources that you would like help with: None Currently or been in a relationship where the following occur: No concerns reported THRIVE Score: 0 AUDIT C Alcohol Use Questionnaire (AUDIT-C) 2. How many drinks containing alcohol do you have on a typical day when you are drinking?: 1 or 2 3. How often do you have six or more drinks on one occasion?: Never Total Score: 0 NANCY-7 AMB Questionnaire NANCY-7 Date NANCY - 7 assessed: 03/04/25 Source: Developed by Drs. Landon Harmon, Alexia Wilson, Jose Be and colleagues, with an educational lester from [employer]. Review of Systems Const Denies body aches, Denies chills and Denies fever(s) Eyes Reports no additional complaints ENT Reports no additional complaints Card Denies chest pain, Denies syncope, Denies irregular heart rhythm, Denies leg edema, Denies lightheadedness, Denies palpitations and Denies dyspnea Resp Denies cough and Denies dyspnea GI Denies abdominal pain, Denies diarrhea, Denies nausea and Denies vomiting Reports no additional complaints Musc Reports back pain Neuro Denies syncope Endo Denies palpitations Physical exam (Primary Care) Vital Signs: Last Vital Signs Pulse 96 03/04/25 15:01 BP 146/68 H 03/04/25 15:41 Pulse Ox 98 03/04/25 15:01 Oxygen Delivery Method Room Air 03/04/25 15:01 BMI result Body Mass Index 26.9 Tobacco/Smoking Status: Tobacco use Status Tobacco use date assessed 03/04/25 03/04/25 15:03 Patient Tobacco Use Status Current everyday Tobacco 03/04/25 15:03 Tobacco use type Cigarette 03/04/25 15:03 e-Cigarette/Vaping Use Never Used 03/04/25 15:03 Thrive Assessment: Date of Thrive Assessment Date Thrive assessed 03/04/25 03/04/25 15:03 Currently or been in a relationship where the following occur: No concerns reported Const General: cooperative, healthy appearing, comfortable and no acute distress Orientation/consciousness: patient oriented x3 HENMT Head: Yes normocephalic Ears: hearing grossly normal bilaterally General nose exam: Normal external nose present Eyes General: appearance normal, both eyes and all related structures Conjunctivae: conjunctivae normal Neck Neck: Yes full ROM and Yes no lymphadenopathy Resp Effort & Inspection: normal respiratory effort Auscultation: clear to auscultation bilaterally, no crackles, no rales, no rhonchi and no wheezes Cardio Rate: regular rate Rhythm: regular rhythm Skin General skin exam: no rashes or lesions noted Neuro General: patient oriented x3 Gait exam (Neuro): Normal gait present Extrem General: Yes normal to inspection, Yes full ROM and No edema Psych Affect: normal affect Attitude: cooperative Insight: Good insight present (Psych) Judgement: Good judgement present (Psych) Coding Level of Care Code Est Pt Level 3 (32594) Diagnoses S/P lumbar fusion Z98.1 Smoker F17.200 HTN (hypertension) I10 Aortic stenosis I35.0 Assessment & Plan Assessment & Plan (1) S/P lumbar fusion: Code(s): Z98.1 - Arthrodesis status Category: Surgical Plan: Patient doing well postoperatively and does follow with a spinal center. Has seen an improvement in his overall mobility but does still have mild low back pain. (2) Smoker: Comment: HAS HISTORY OF SMOKING 1 PACK A DAY FOR 46 YEARS. POST CAROTID ARTERY SURGERY AND FINDING OF HYPOXEMIA, HE HAD CUT DOWN TO 5 CIGARETTES A DAY. SINCE LAST YEAR HE HAD GONE BACK TO 10 CIGARETTES A DAY. NOW AGAIN CUT DOWN TO 5 CIGARETTES A DAY WE HAD A LONG DISCUSSION AND I HAVE URGED HIM TO MAKE BEST EFFORT TO QUIT COMPLETELY HAVING ANNUAL LUNG SCREENING AT [facility] . Code(s): F17.200 - Nicotine dependence, unspecified, uncomplicated Category: Social Hx Plan: Smoking cigarettes and the use of tobacco can be harmful. We discussed the importance of stopping and options to aid in smoking cessation. Declines a nicotine replacement therapy or oral dication at this time. He is enrolled in lung cancer screening program through [place] declining nicotine replacement therapy and medication management at this time. (3) HTN (hypertension): Comment: follows w/[facility] Code(s): I10 - Essential (primary) hypertension Category: Medical Plan: Blood pressure elevated on the exam today initially 140/62 and 146/68 when retaken. I did discuss with the patient given his carotid artery disease blood pressure management is extremely important. He has not been monitoring the blood pressures at home and unclear if this is a true elevation or anxiety related. Plan to have patient take blood pressure at home for the next 1-2 weeks and reach out to the office if blood pressure remains elevated above 140/90 and plan to increase hydrochlorothiazide b.i.d. if needed. He will follow up with the of the nurses in 1 month and with me in 3 months. (4) Aortic stenosis: Comment: follows w/ [facility] Code(s): I35.0 - Nonrheumatic aortic (valve) stenosis Category: Medical Plan: Patient follows with [facility] for aortic stenosis monitoring. Patient is asymptomatic at this time. Plan The plan for hypertension includes monitoring blood pressure at home two to thr ee times a week, ensuring the patient is seated with feet flat on the floor before measurement. If home readings consistently exceed 140/90 mmHg, the patient is advised to contact the clinic for potential medication adjustment. For chronic back pain, the patient is advised to continue with Tylenol and pregabalin, with the option to reduce pregabalin to once daily if dizziness persists. The patient is encouraged to consult with the painting manager if pain control is inadequate. The patient is to continue statin therapy for hyperlipidemia, given the effective control of cholesterol levels. Smoking cessation strategies were discussed, including reducing access to cigarettes and considering alternative habits. This note was constructed using voice recognition software. While every effort has been made to ensure accuracy and conference translator, still areas may have been included sometimes these areas may affect the content or meeting of the given symptoms. Total time spent caring for the patient today was 20 minutes. This includes time spent before the visit reviewing the chart, time spent during the visit, and time spent after the visit and documentation. Patient was informed and verbally consented to the use of an ambient scribe for clinic note documentation during this visit. Orders: Orders Comprehensive Met. Panel Today I10 - Essential (primary) hypertension, Z00.00 - Encounter for general adult medical examination without abnormal findings
[2025-03-04 15:01] VITALS: BP 140/62; PULSE 96; O2SAT 98; BMI 26.9
[2025-03-04 15:41] VITALS: BP 146/68
== END 2025-03-04 15:58 | disposition home or self-care (01) ==
LOC: HO.HMCH 14:56
DX: Z98.1 Arthrodesis status (principal); F17.200 Nicotine dependence, unspecified, uncomplicated; I10 Essential (primary) hypertension; I35.0 Nonrheumatic aortic (valve) stenosis

== ENCOUNTER 2025-06-07 15:19 | Outpatient (AMB) | payer OTHER, SELFPAY ==
[2025-06-07 15:24] VITALS: BP 140/70; PULSE 62; TEMP 36.3; O2SAT 99; BMI 24.1
--- NOTE | 2025-06-07 15:24 | MHC.PC.OV ---
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 Instructions: Resume on 10/02/24. atorvastatin 40 mg PO BEDTIME folic acid 1 mg PO DAILY hydrochlorothiazide 12.5 mg PO BID losartan 100 mg PO DAILY metoprolol tartrate 25 mg PO BID testosterone 3 pumps topical QAM 30 days Tobacco use date assessed: 03/04/25 Fall risk assessment: No Falls in past year Last assessed Fall Risk: 03/04/25 Dental Screening Dental Screen Date: 03/04/25 Did you have a dental visit in the last 12 months?: No Did you have a dental problem in the last 6 months where you did not have access to dental care?: No Was dental information given to patient?: No HPI f/u HTN HPI Details 69 year old male with past medical history of Aortic stenosis, testicular cancer, HTN, smoker, COPD, carotid stenosis last seen 02/2025 coming in for follow up. Presenting for blood pressure management. The patient has a history of hypertension with consistently elevated readings, including 180/64 in November, 158 in March, and 148/64 at the last visit. He has a known history of aortic stenosis and has had several cardiac ultrasounds performed by his land degradation analyst in the past. The patient continues to smoke cigarettes but is actively trying to cut back by keeping them in his car. He follows with a land degradation analyst, potentially Dr. Lawson with [facility]. [facility] Medical History Thrombocytopenia Aortic stenosis COPD (chronic obstructive pulmonary disease) Smoker HTN (hypertension) Thrombocytopenia Hyperlipidemia Testicular cancer Lymphoma Surgical History History of testicular surgery History of back surgery History of left-sided carotid endarterectomy Hx of cataract extraction Hx of hand surgery Hx of bilateral orchiectomies History of carotid endarterectomy (~09/16/17) Social History Household Members: Spouse Housing: House Housing Other:: duplex home Are you a primary assurance services manager health care to a significant other at home: No Do you presently have visiting nurse or other home services: No Alcohol intake: never Patient Tobacco Use Status: Current everyday Tobacco user Tobacco use type: Cigarette Cigarette Packs Per Day: 0.5 Cigarettes Per Day: 10.0 Years Smoked: 46 Packs Per Year: 23 Packs per year/per ci.00 e-Cigarette/Vaping Use: Never Used Second Hand Smoke Exposure: Yes Substance Use Type: Marijuana service: No Current occupational status: retired Cognitive needs: No Hearing needs: No Vision needs: Yes (Glasses) Questionnaire PHQ-9 Over the last 2 weeks, how often have you been bothered by any of the following problems? 1. Little interest or pleasure in doing things: not at all 2. Feeling down, depressed, or hopeless: not at all 3. Trouble falling or staying asleep, or sleeping too much: not at all 4. Feeling tired or having little energy: several days 5. Poor appetite or overeating: not at all 6. Feeling bad about yourself - or that you are a failure or have let yourself or your family down: not at all 7. Trouble concentrating on things, such as reading the newspaper or watching television: not at all 8. Moving or speaking so slowly that other people could have noticed. Or the opposite - being so fidgety or restless that you have been moving around a lot more than usual: not at all 9. Thoughts that you would be better off or of hurting yourself in some way: not at all Total score: 1 Depression Screening Interpretation: Negative Depression Screening Done: Yes Source: Developed by Drs. Landon Harmon, Alexia Wilson, Jose Be and colleagues, with an educational lester from [employer]. Thrive Questionnaire Date Thrive assessed: 11/16/24 I am a: Patient What is your living situation today?: I have a steady place to live Within the past 12 months, did the food you bought not last and you didn't have the money to get more?: Never true Within the past 12 months, did you worry whether your food would run out before you got money to buy more?: Never true Do you have trouble paying for medicines?: No Do you have trouble getting transportation to medical appointments?: No Do you have trouble paying your heating and electricity bill?: No Do you have trouble taking care of your child, family member or friend?: No Do you have trouble with day-to-day activities such as bathing, preparing meals, shopping, managing finances, etc.?: No Are you currently unemployed and looking for a job?: No Are you interested in more education?: No Please select the resources that you would like help with: None Currently or been in a relationship where the following occur: No concerns reported THRIVE Score: 0 AUDIT C Alcohol Use Questionnaire (AUDIT-C) 2. How many drinks containing alcohol do you have on a typical day when you are drinking?: 1 or 2 3. How often do you have six or more drinks on one occasion?: Never Total Score: 0 NANCY-7 AMB Questionnaire NANCY-7 Date NANCY - 7 assessed: 03/04/25 Source: Developed by Drs. Landon Harmon, Alexia Wilson, Jose Be and colleagues, with an educational lester from [employer]. Review of Systems Const Denies body aches, Denies chills, Denies fever(s), Denies headache(s) and Denies poor appetite Eyes Reports no additional complaints ENT Denies dizziness and Denies headache(s) Card Denies chest pain, Denies edema, Denies lightheadedness and Denies dyspnea Resp Denies dyspnea GI Denies nausea and Denies vomiting Reports no additional complaints Musc Denies abnormal gait Skin/Breast Reports system reviewed and no additional complaints, except as documented Neuro Denies abnormal gait, Denies dizziness and Denies headache(s) Psych Reports no additional complaints Physical exam (Primary Care) Vital Signs: Last Vital Signs Temp 97.3 F 06/07/25 15:24 Pulse 74 06/07/25 15:57 BP 168/80 H 06/07/25 15:57 Pulse Ox 99 06/07/25 15:24 Oxygen Delivery Method Room Air 06/07/25 15:24 BMI result Body Mass Index 24.1 Tobacco/Smoking Status: Tobacco use Status Tobacco use date assessed 03/04/25 06/07/25 15:31 Patient Tobacco Use Status Current everyday Tobacco 06/07/25 15:31 Tobacco use type Cigarette 06/07/25 15:31 e-Cigarette/Vaping Use Never Used 06/07/25 15:31 PHQ-9: PHQ-9 Score PHQ-9: Total score 1 06/07/25 15:46 Depression Screening Interpretation: Negative Thrive Assessment: Date of Thrive Assessment Date Thrive assessed 11/16/24 06/07/25 15:31 Currently or been in a relationship where the following occur: No concerns reported Const General: cooperative, healthy appearing, comfortable and no acute distress Orientation/consciousness: patient oriented x3 HENMT Head: Yes normocephalic Ears: hearing grossly normal bilaterally General nose exam: Normal external nose present Eyes General: appearance normal, both eyes and all related structures Conjunctivae: conjunctivae normal Neck Neck: Yes full ROM and Yes no lymphadenopathy Resp Effort & Inspection: normal respiratory effort Auscultation: clear to auscultation bilaterally, no crackles, no rales, no rhonchi and no wheezes Cardio Rate: regular rate Rhythm: regular rhythm Skin General skin exam: no rashes or lesions noted Neuro General: patient oriented x3 Gait exam (Neuro): Normal gait present Extrem General: Yes normal to inspection, Yes full ROM and No edema Psych Affect: normal affect Attitude: cooperative Insight: Good insight present (Psych) Judgement: Good judgement present (Psych) Coding Level of Care Code Est Pt Level 4 (55456) Diagnoses Smoker F17.200 HTN (hypertension) I10 Aortic stenosis I35.0 Assessment & Plan Assessment & Plan (1) Smoker: Comment: HAS HISTORY OF SMOKING 1 PACK A DAY FOR 46 YEARS. POST CAROTID ARTERY SURGERY AND FINDING OF HYPOXEMIA, HE HAD CUT DOWN TO 5 CIGARETTES A DAY. SINCE LAST YEAR HE HAD GONE BACK TO 10 CIGARETTES A DAY. NOW AGAIN CUT DOWN TO 5 CIGARETTES A DAY WE HAD A LONG DISCUSSION AND I HAVE URGED HIM TO MAKE BEST EFFORT TO QUIT COMPLETELY HAVING ANNUAL LUNG SCREENING AT [facility]. Code(s): F17.200 - Nicotine dependence, unspecified, uncomplicated Category: Social Hx Plan: Smoking cigarettes and the use of tobacco can be harmful. We discussed the importance of stopping and options to aid in smoking cessation. Declines a nicotine replacement therapy or oral medication at this time. (2) HTN (hypertension): Comment: follows w/ [facility] Code(s): I10 - Essential (primary) hypertension Category: Medical Plan: The patient's blood pressure is significantly elevated at 168/80 mmHg, which is the highest it has been in a while. Given the persistent elevations, with recent readings in the 140s and 150s, an adjustment to his medication regimen is necessary with a target goal of less than 130. I will change his hydrochlorothiazide from 12.5 mg twice a day to one 25 mg tablet in the morning, and I have sent a prescription for this to the pharmacy. Plan to also increase metoprolol to 50 mg b.i.d. with 1st starting with 50 mg a.m. 25 mg p.m. for tolerability then increasing to 50 mg b.i.d. a message was sent to his land degradation analyst regarding this change. Blood pressure cuff was also sent to his pharmacy so we can monitor his blood pressures at home. (3) Aortic stenosis: Comment: follows w/ [facility] Code(s): I35.0 - Nonrheumatic aortic (valve) stenosis Category: Medical Plan: Patient follows with [facility] for aortic stenosis monitoring. Patient is asymptomatic at this time. Plan This note was constructed using voice recognition software. While every effort has been made to ensure accuracy and court orderly, still areas may have been included sometimes these areas may affect the content or meeting of the given symptoms. Total time spent caring for the patient today was 20 minutes. This includes time spent before the visit reviewing the chart, time spent during the visit, and time spent after the visit and documentation. Patient was informed and verbally consented to the use of an ambient scribe for clinic note documentation during this visit. Medications: New hydrochlorothiazide 25 mg PO DAILY 90 tabs 0RF blood pressure monitor As directed; to check BP daily 1 ea 0RF I10 - Essential (primary) hypertension metoprolol tartrate 50 mg PO BID 180 tabs 0RF Discontinued hydrochlorothiazide Discontinued Reason: Duplicate 12.5 mg PO BID 180 tabs 1RF
[2025-06-07 15:57] VITALS: BP 168/80; PULSE 74
== END 2025-06-07 16:54 | disposition home or self-care (01) ==
LOC: HO.HMCH 15:20
DX: F17.200 Nicotine dependence, unspecified, uncomplicated (principal); I10 Essential (primary) hypertension; I35.0 Nonrheumatic aortic (valve) stenosis

== ENCOUNTER 2025-06-24 10:36 | Outpatient (REF) | payer OTHER, SELFPAY ==
[2025-06-24 11:15] LABS: Hematocrit 34.8 % (42.0-52.0); Hemoglobin 11.8 g/dl (14.0-18.0); Mean Corpuscular HGB Conc 33.9 g/dl (31.0-36.0); Mean Corpuscular Hemoglobin 32.2 pg (27.0-33.0); Mean Corpuscular Volume 95.1 fL (80.0-98.0); NRBC Abs Auto 0.000 X10*3/uL (0.0-0.012); NRBC Pct Auto 0.0 /100WBC (0.0-0.2); Red Blood Count 3.66 X10*6/uL (4.60-5.80); White Blood Count 5.5 X10*3/uL (4.8-10.8)
[2025-06-24 11:16] LABS: Platelet Count 77 X10*3/uL (160-400)
[2025-06-24 11:49] LABS: Alanine Aminotransferase 22 U/L (0-40); Albumin Level 4.1 g/dL (3.5-5.0); Alkaline Phosphatase 122 U/L (39-117); Anion Gap 11 (12-20); Aspartate Amino Transferase 35 U/L (5-37); Blood Urea Nitrogen 40 mg/dL (9-16); Calcium 9.4 mg/dL (8.4-10.2); Carbon Dioxide 25 mmol/L (22-29); Chloride 112 mmol/L (96-108); Estimated Glomerular Filt Rate 32; Potassium 4.6 mmol/L (3.3-5.1); Sodium 143 mmol/L (135-145); Total Protein 6.7 g/dL (6.5-8.0)
[2025-06-24 13:36] LABS: Prostate Specific Antigen 0.99 ng/mL (<0.05-4.0)
== END 2025-06-24 10:37 | disposition home or self-care (01) ==
LOC: HO.LAB 10:36
PROVIDERS: Visit Provider Urology
DX: Z00.00 Encounter for general adult medical examination without abnormal findings (principal); I10 Essential (primary) hypertension; E29.1 Testicular hypofunction; Z12.5 Encounter for screening for malignant neoplasm of prostate
CPT/HCPCS: 36415; 80053; 84153; 84403; 85027